=== PATIENT | male | born 1955 | race Caucasian/White ===

== ENCOUNTER 2022-04-22 19:14 | Outpatient (REF) | payer MEDICARE, OTHER, SELFPAY ==
[2022-04-22 20:40] LABS: ALT 25 U/L (16-63); AST 17 U/L (15-37); Albumin 4.1 g/dL (3.4-5.0); Alkaline Phosphatase 59 U/L (46-116); Anion Gap 9.5 mmol/L (3-11); BUN 21 mg/dL (7-18); Bilirubin, Total 0.6 mg/dL (0.2-1.0); CO2 28.5 mmol/L (21.0-32.0); CREATININE 1.3 mg/dL (0.70-1.30); Calculated LDL 112 mg/dL (<100); Chloride 103 mmol/L (98-107); Cholesterol 180 mg/dL (<200); Glucose 99 mg/dL (74-106); HDL Cholesterol 47 mg/dL (40-60); Sodium 141 mmol/L (136-145); Total Protein 7.6 g/dL (6.4-8.2); Triglyceride 105 mg/dL (<150)
== END 2022-04-22 19:15 | disposition home or self-care (01) ==
LOC: NCHCN 19:14
PROVIDERS: Visit Provider Physician Assistant
DX: R73.03 Prediabetes (principal); Z13.220 Encounter for screening for lipoid disorders
CPT/HCPCS: 80053; 80061

== ENCOUNTER 2024-05-09 15:31 | Outpatient (REF) | payer MEDICARE, OTHER, SELFPAY ==
--- OUTSIDE RECORDS SUMMARY | 2024-05-09 15:35 | XMS_ITS | Continuity of Care Document ---
Author Organization [facility] Address [address] [place] [address] Care Team Providers Care Customer Quality Engineer Name Role Phone MEGAN FLORIAN, MILIND Calles Primary Care Physician [phone] Encounter LTTL_MD FIN NBR [id number] Date(s): 05/05/24 - 05/05/24 [facility] [address], [place] [id number]- [place] Discharge Disposition: Home or Self Care Attending Physician: Sury Bee MD Admitting Physician: Sury Bee MD Referring Physician: Sury Bee MD Allergies, Adverse Reactions, Alerts Substance Criticality Severity Reaction Reaction Severity Status Hayfever Unable to assess criticality Unknown Active Assessment and Plan Future Appointments Diagnostic Tests Pending * QuantiFERON-TB Plus(Client Incubated) LC 05/05/24 Future Scheduled Tests Radiology* CT Chest w/o Contrast 04/26/24 Medications !-Aspir 81 oral delayed release tablet 81 mg = 1 tab, Oral, Daily, # 30 tab, 0 Refill(s) Start Date: 06/25/22 Status: Ordered calcium (as carbonate)-vitamin D 500 mg-400 intl units oral tablet 1 tab, Oral, Daily, # 300 tab, 0 Refill(s) Start Date: 06/25/22 Status: Ordered Fish Oil 1200 mg oral capsule 1,200 mg = 1 cap, Oral, Daily, # 90 cap, 0 Refill(s) Start Date: 09/20/23 Status: Ordered glucosamine 500 mg oral capsule 500 mg = 1 cap, Oral, Daily, # 90 cap, 0 Refill(s) Start Date: 06/25/22 Status: Ordered magnesium gluconate 500 mg oral tablet 500 mg = 1 tab, Oral, Daily, # 14 tab, 0 Refill(s) Start Date: 06/25/22 Stop Date: 07/02/22 Status: Ordered PreserVision 0 Refill(s) Start Date: 05/05/24 Status: Ordered Protonix 40 mg oral delayed release tablet 40 mg = 1 tab, Oral, Daily, # 30 tab, 0 Refill(s) Start Date: 06/25/22 Status: Ordered Vitamin C 500 mg oral tablet 500 mg = 1 tab, Oral, Daily, # 30 tab, 0 Refill(s) Start Date: 06/25/22 Status: Ordered Vitamin D3 1000 intl units oral capsule 25 mcg = 1 cap, Oral, Daily, # 75 cap, 0 Refill(s) Start Date: 06/25/22 Status: Ordered vitamin E 0 Refill(s) Start Date: 05/05/24 Status: Ordered Problem List Condition Confirmation Course Effective Dates Status H ealth Status Informant Allergic rhinitis Confirmed Active Desouza's esophagus Confirmed Active BPPV - Benign paroxysmal positional vertigo Confirmed Active Degeneration of lumbar intervertebral disc Confirmed Active Diverticulitis Confirmed Active Femoral hernia Confirmed Active GERD - Gastro-esophageal reflux disease Confirmed Active Hx of adenomatous colonic polyps Confirmed Active History of alcohol abuse Confirmed Active History of diverticulitis Confirmed Active Macular degeneration of both eyes Confirmed Active Malignant melanoma Confirmed Active Neck pain Confirmed Active Prediabetes Confirmed Active Pulmonary sarcoidosis Confirmed Active Sarcoidosis Confirmed Active Thoracic spondylosis Confirmed Active TIA Confirmed Active Procedures Procedure Date Related Diagnosis Body Site Status Esophagogastroduodenoscopy a nd Colonoscopy with Biopsy 1 09/23/23 Comple susana Esophagogastroduodenoscopy Biopsy 2 09/23/22 Completed Esophagogastroduodenoscopy, flexible, transoral; diagnostic, including collection of specimen(s) by brushing or washing, when performed (separate procedure) 09/22/22 Completed Colonoscopy Completed EGD - Esophagogastroduodenoscopy Completed Excision of melanoma 3 Co mpleted Laparoscopic cholecystectomy Completed Primary repair of umbilical hernia Completed 1auto-populated from documented surgical case 2auto-populated from documented surgical case 3back Social History Social History Type Response Tobacco Former tobacco user Tobacco Use:. 1 ppd per day. 21 year(s). Sex Sex Representation Male (finding) Patient Care team information Care Team Personnel Name: MEGAN FLORIAN (QUANG)MILIND Position: No Access Member Role: Primary Care Physician Address: [address] [place] [address] Care Team Related Persons Name: ANKUSH SIDHU Insurance Providers Guarantor name: INDRA SIDHU [employer] Plan Information #: 2 [facility] Member Number: [id number] Policy Number: NA Health Plan Information #: 1 Payer: [facility] Member Number: [id number] Policy Number: NA
--- OUTSIDE RECORDS SUMMARY | 2024-05-09 15:35 | XMS_ITS | Encounter Summary ---
[place] [address] Care Team Providers Care Armature And Rotor Winder Name Role Phone Britt Bravo Primary Care Provider [phone] Reason for Referral * Consultation (Urgent) - Closed Specialty Diagnoses / Procedures Referred By Contac t Referred To Contact Diagnoses Mediastinal adenopathy Sarcoidosis of lung Cameron Shelby MD [facility] [place] [address] Lala Hubbard MD [address] [place] [address] Referral ID Status Reason Start Date Expiration Date V isits Requested Visits Authorized [id number] Closed Consult, Test & Treat 01/18/2023 07/17/2023 1 1 Encounter Details Date Type Department Care Team (Late st Contact Info) Description 01/18/2023 Orders [place] [address] Kiley Mccall, RN Mediastinal adenopathy; Sarcoidosis of lung Social History Tobacco Use Types Packs/Day Years Used Date Smoking Tobacco: Former Cigarettes 2 21 1 - 1992 Smokeless Tobacco: Never Alcohol Use Standard Drinks/Week Comments Not Currently 0 (1 standard drink = 0.6 oz pur e alcohol) quit 16 years ago Sex and Gender Information Value Date Recorded Sex Assigned at Not on file Gender Identity Not on file Sexual Orientation Not on file documented as of this encounter Progress Notes * Kiley Mccall, RN - 01/18/2023 2:06 PM EDT Faxed Pulmonology referral to Dr. Lala Hubbard at [phone] documented in this encounter Plan of Treatment Scheduled Referrals Name Type Priority Associated Diagnoses Order Schedule Referral to Pulmonology Outpatient Referral Urgent Mediastinal adenopathy Sarcoidosis of lung Ordered: 01/18/2023 documented as of this encounter Visit Diagnoses Diagnosis Mediastinal adenopathy Enlargement of lymph nodes Sarcoidosis of lung Sarcoidosis documented in this encounter Care Teams Armature And Rotor Winder Relationship Specialty Start Date End Date Britt Bravo PA [address] [place] [id number] PCP - General Family Medicine 11/18/22 documented as of this encounter
--- OUTSIDE RECORDS SUMMARY | 2024-05-09 15:35 | XMS_ITS | Encounter Summary ---
Author Organization [facility] Address [facility] [place] [address] Care Team Providers Care Network Director Name Role Phone Britt Bravo Primary Care Provider + [phone] Reason for Visit * Reason Comments Follow-up * Consultation (Routine) - Closed Specialty Diagnoses / Procedures Referred By Contac t Referred To Contact General Surgery Diagnoses Femoral hernia with obstruction without gangrene, recurrence not specified, unspecified laterality Anjum Chiang MD [facility] [place] [address] [facility] Gen Surgery [address] [place] [address] Referral ID Status Reason Start Date Expiration Date V isits Requested Visits Authorized [id number] Closed Consult, Test & Treat 12/29/2022 12/29/2023 1 1 Encounter Details Date Type Department Care Team (Late st Contact Info) Description 01/12/2023 2:45 PM EDT Office Visit [place] [address] Romain Vang MD [facility] [place] [address] Unilateral femoral hernia without obstruction or gangrene, recurrence not specified Social History Tobacco Use Types Packs/Day Years [...] on file documented as of this encounter Last Filed Vital Signs Vital Sign Reading Time Taken Comments Blood Pressure - - Pulse - - Temperature - - Respiratory Rate - - Oxygen Saturation - - Inhaled Oxygen Concentration - - Weight 91.4 kg (201 lb 8 oz) 01/12/2023 2:35 PM EDT Height - - Body Mass Index 28.91 12/29/2022 11:07 AM EDT documented in this encounter Progress Notes * Isabella Oneil MD - 01/12/2023 2:45 PM EDT [facility] Follow Up Note Referring Provider: Anjum Chiang Chief complaint: Chief Complaint Patient presents with ??? Follow-up History of Present Illness: Diallo Solomon is a 67 y.o. male who presents for follow up of right femoral hernia in setting of prior right laparoscopic inguinal hernia. Patient was last seen by Dr. Vang 11/16/2019 at which time he was offered laparoscopic inguinal hernia repair which he eventually scheduled but ultimately canceled due to the COVID-19 pandemic. Since that time, he has remained healthy but now presents with worsening symptoms and hopes to schedule surgical repair. Patient was biking a bunch while vacationing in [place] about a month ago and began having more pain in the groin and a pulling sensation in the abdomen. The bulge was increased in size and has always been out. No symptoms or signs of obstruction/acute incarceration. Denies any symptoms on the left. Hernia Risk Factors: ??? Constipation-no ??? Frequent Heavy Lifting- no, occasionally fire wood etc ??? Straining with urination-no ??? Cough-no ??? Smoking history-no ??? Weight gain-no ??? BMI-28.9 Hemoglobin A1c-No results found for: HA1C Past Medical History: Patient Active Problem List Diagnosis Code ??? Femoral hernia K41.90 ??? Gastroesophageal reflux K21.9 ??? Desouza's esophagus K22.70 ??? Chronic back pain M54.9, G89.29 ??? Melanoma C43.9 ??? Mediastinal adenopathy R59.0 Past Surgical History: Past Surgical History: Procedure Laterality Date ??? CHOLECYSTECTOMY, LAPAROSCOPIC c/b deep space infection requiring IR drainage ??? INGUINAL HERNIA REPAIR Right ? ? PRO [facility] EBUS GUIDED SAMPL 3/> NODE STATION/STRUX N/A 01/01/2023 BRONCH, W ENDOBRONCHIAL ULTRASOUND (EBUS) GUIDED SAMPLING, 3+ NODES (WRVU 4.96) performed by Cameron Shelby MD at [facility] MAIN OR ??? SKIN CANCER EXCISION Right lower right back Medications: Current Outpatient Medications on File Prior to Visit Medication Sig Dispense Refill ??? cholecalciferol, Vitamin D3, 25 mcg (1,000 unit) Capsule Take 1,000 Units by mouth daily. ??? ascorbic acid, Vitamin C, (Vitamin C) 500 mg tablet Take 500 mg by mouth daily. ??? [id number]-[id number]-YNCW ORAL Take 1 tablet by mouth daily. ??? glucosamine/msm/chondrt/C/hyal (JQDQPJEFIDH-[id number]-NKO ORAL) Take 1 tablet by mouth daily. ??? aspirin EC 81 mg EC (DR) tablet Take 81 mg by mouth daily. ??? pantoprazole (PROTONIX) 40 mg Tablet, Delayed Release (E.C.) Take 40 mg by mouth daily. 0 No current facility-administered medications on file prior to visit. Allergies: Cat dander, Dust & pollen filter mask [facial mask], Hay fever and allergy relief [chlorpheniramine-phenylpropan], Oats, and [place] Family History: Family History Problem Relation Age of Onset ??? Myocardial Infarction Mother 80 ??? Heart Disease Father ??? Hypertension Father ??? Diabetes Father ??? Arthritis Brother ??? Cancer Paternal Grandmother type unknown ??? Breast Cancer Paternal Aunt No history of bleeding disorders, clotting disorders, or complications from anesthesia. Social History: reports that he quit smoking about 30 years ago. His smoking use included cigarettes. He started smoking about 51 years ago. He has a 42.00 pack-year smoking history. He has never used smokeless tobacco. He reports that he does not currently use alcohol. He reports that he does not currently use drugs after having used the following drugs: Marijuana. Review of Systems: A 10 point review of systems was performed. Pertinent positives and negatives are listed in the above HPI. All other systems are negative. Physical Exam: Vital Signs: Wt 91.4 kg (201 lb 8 oz) BMI 28.91 kg/m?? General appearance: Alert and oriented, appears stated age, well groomed HEENT: No scleral icterus, normocephalic, atraumatic Neck: No carotid bruits Skin: No jaundice Heart: Regular rate and rhythm Lungs: Symmetric chest rise, no distress, clear breath sounds bilaterally Abdomen: Non distended, soft, non tender to palpation, : right open inguinal incision, there is a soft non-tender mass along inferior aspect of right inguinal canal, tender in femoral canal, no cough impulse on left Extremities: Moves all four extremities, no gross deformity. Studies: Admission on 01/01/2023, Discharged on 01/01/2023 Component Date Value Ref Range Status ??? WBC 01/01/2023 7.7 4.0 - 9.5 x10(3)/mcL Final ??? RBC 01/01/2023 5.20 4.58 - 5.54 x10(6)/mcL Final ??? Hemoglobin 01/01/2023 15.8 13.7 - 16.5 g/dL Final ??? Hematocrit 01/01/2023 46.6 40.5 - 48.5 % Final ??? MCV 01/01/2023 89.6 82.9 - 93.1 fL Final ??? MCH 01/01/2023 30.4 27.5 - 32.1 pg Final ??? MCHC 01/01/2023 33.9 32.0 - 35.7 g/dL Final ??? Platelets 01/01/2023 218 145 - 357 x10(3)/mcL Final ??? RDWSD 01/01/2023 41.4 36.0 - 45.0 fL Final ??? RDWCV 01/01/2023 12.6 11.4 - 13.8 % Final ??? MPV 01/01/2023 9.8 7.6 - 12.9 fL Final ??? nRBC % Auto 01/01/2023 0.0 % Final ??? nRBC Abs Auto 01/01/2023 0.000 0.000 - 0.000 x10(3)/mcL Final ??? Neutrophils % 01/01/2023 59.2 % Final ??? Neutr Abs (ANC) 01/01/2023 4.56 1.70 - 6.10 x10(3)/mcL Final ??? Lymphocytes % 01/01/2023 26.3 % Final ??? Lymphocytes Abs 01/01/2023 2.0 0.9 - 3.2 x10(3)/mcL Final ??? Monocytes % 01/01/2023 10.3 % Final ??? Monocyte Abs 01/01/2023 0.8 0.3 - 0.9 x10(3)/mcL Final ??? Eosinophils % 01/01/2023 3.4 % Final ??? Eosinophils Abs 01/01/2023 0.3 0.0 - 0.4 x10(3)/mcL Final ??? Basophils % 01/01/2023 0.4 % Final ??? Basophils Abs 01/01/2023 0.0 0.0 - 0.1 x10(3)/mcL Final ??? Immature Gran % 01/01/2023 0.40 % Final Comment: Immature granulocytes(IG's)percentage and absolute count will include metamyelocytes, myelocytes, and promyelocytes. Blood smears from CBCs yielding IG's will be scanned manually for concordance. If this scan disagrees with the automated IG or if promyelocytes are noted, a manual differential will be performed. ??? Sofía Gran Abs 01/01/2023 0.03 0.00 - 0.04 x10(3)/mcL Final ??? POC Glucose 01/01/2023 103 65 - 199 mg/dL Final Comment: Supplemental ranges: <140 mg/dL before meals <180 mg/dL all other times of the day ??? Ventricular rate 01/01/2023 67 BPM Final ??? Atrial Rate 01/01/2023 67 BPM Final ??? P-R Interval 01/01/2023 150 ms Final ??? QRS Duration 01/01/2023 94 ms Final ??? Q-T Interval 01/01/2023 374 ms Final ??? QTC Calculated (Bezet) 01/01/2023 395 ms Final ??? Calculated P [facility] 01/01/2023 28 degrees Final ??? Calculated R [facility] 01/01/2023 26 degrees Final ??? Calculated T [facility] 01/01/2023 10 degrees Final ??? INTERPRETATION 01/01/2023 Final Value:Normal sinus rhythm with sinus arrhythmia Normal ECG No previous ECGs available Confirmed by MD DIAZ SALVATORE ([id number]) on 01/01/2023 3:58:07 PM ??? Immunophenotyping Flow 01/01/2023 See Comment Final Comment: When completed by the Pathologist, the Flow Cytometry Report ([id number]) will display under the Pathology Results section within eDH. ??? Tissue Culture 01/01/2023 (A) Final Value:Coagulase negative Staphylococcus species isolated from broth culture. Probable contaminant No growth on original plates. ??? Gram Stain 01/01/2023 (A) Final Value:Few Neutrophils seen No microorganisms seen. ??? Organism 01/01/2023 Coagulase negative Staphylococcus species (A) Final ??? Anaerobic Culture 01/01/2023 No anaerobic organisms isolated Final ??? Flow Cytometry Report 01/01/2023 Final Value:[id number] Location: [facility]; [place]; A The signing pathologist has (i) examined the relevant preparation(s) for the specimen(s) and (ii) rendered or confirmed the diagnosis(es). . Flow Cytometry DIAGNOSIS LEVEL 7, LYMPH NODE - FLOW CYTOMETRY: - No monotypic B-cell population or phenotypically abnormal T-cell population. Electronically signed by: Deniz Crews DO Verified: 01/04/2023 9:31 Pathologist Performed at: -[facility], [place] [address] Production Supervisor: Silviano Arias MD, FCAP, CLIA Certificate: [id number] DISCUSSION Cell viability was ~65% as assessed by 7-AAD exclusion. Blasts based on CD45/SSC/CD117, are not increased. The T-lymphocytes, B- lymphocytes and CD56+ NK cells comprise approx 64%, 33%, 3% of the gated population, respectively. The CD19 positive B-cells have a polytypic expression of surface immunog lobulin light chain ([place]:Lambda ratio at 1.2). The T-cells are an admixture of CD4+ and CD8+ T lymphocytes (ratio of 2.7). No loss or atypical intensity distributions are seen for any fernandez T antigen (CD2, 3, 4+8, 5, 7). There is no increase in VY56-ksjajlnz/CD3-neg NK cells. Flow analysis is an ancillary study. A definite diagnosis requires correlation with the morphologic features of this process and if necessary, correlation with other ancillary studies like immunohistochemistry, enzyme cytochemistry and/or cyto/ molecular genetics. This test was developed and its performance characteristics determined by the Clinical Flow Cytometry Laboratory at [facility]. It has not been cleared or approved by the U.S. Food and Drug Administration. The FDA has determined that such clearance or approval is not necessary. This test is used for clinical purposes. It should not be regarded as investigational or for research. This laboratory is certified under the Clinical Laboratory Improvement Act of 1988 (CLIA) as qualified to perform high complexity clinical laboratory testing. SPECIMEN PROCESSING [id number] Cells for immunophenotypic analysis were derived from level 7 lymph node. CD45 vs side scatter gating was utilized to identify a lymphoid analysis region that comprises approximately 69-75% of all cells. The following markers were assessed: CD2, CD3, CD4, CD5, CD7, CD8, CD10, CD19, CD45, CD56, kappa light chain, and lambda light chain. CLINICAL INFORMATION 67 year old male with history of melanoma now with mediastinal lymphadenopathy, underwent bronchoscopy. ??? Non-Cable Hooker Final Report 01/01/2023 Final Value:[id number] Location: [facility]; [place]; A The signing pathologist has (i) examined the relevant preparation(s) for the specimen(s) and (ii) rendered or confirmed the diagnosis(es). . Non-Cable Hooker Final DIAGNOSIS Negative for Malignancy Electronically signed by: Marge Feldman MD Verified: 01/06/2023 11:35 Pathologist Performed at: -[facility], [place] [address] Production Supervisor: Silviano Arias MD, FCAP, CLIA Certificate: [id number] DISCUSSION Lymph node, level 7 (EBUS-guided FNA): Lymph node with abundant compact, non-necrotizing granulomas. No evidence of metastatic disease. Cell block was examined. --- Immunohistochemistry Studies --- Interpretation: Immunohistochemical assays were performed (on paraffin-embedded cell block sections fixed in 10% neutral buffered formalin for 6-72 hours) using the polymer technique with appropriate controls. Block Antibody Result (Positive/Negative) A1 Mycobacterium Negative A1 SOX10 Negative for melanoma These immunohistochemical studies provide ancillary information and are used only in conjunction with standard diagnostic procedures. Special Stains: Formalin-fixed, paraffin-embedded cell block sections are studied with appropriate positive controls. Block Special Stain Result (Positive/Negative) A1 AFB Negative for acid-fast organisms A1 GMS Negative for fungal organisms A1 PAS Negative for fungal organisms CLINICAL INFORMATION Specimen Source : Lymph node, level 7 (EBUS-guided FNA, assisted) Pertinent Clinical Data and Significant Therapy: Mediastinal adenopathy with h/o melanoma Clinical Impression : Mediastinal adenopathy with h/o melanoma Pertinent Radiologic Findings : (not provided) Gross Description: . CLINICAL INFORMATION Received in Formalin approximately 45 mL total volume of cloudy, pink fluid, with clots. Total Preparation: Diff Quik 1; Pap Stain 1; Cell Block 1. ??? Non-Cable Hooker Final Report 01/01/2023 Final Value:[id number] Location: [facility]; [facility]; A The signing pathologist has (i) examined the relevant preparation(s) for the specimen(s) and (ii) rendered or confirmed the diagnosis(es). . Non-Cable Hooker Final DIAGNOSIS Negative for Malignancy Electronically signed by: Marge Feldman MD Verified: 01/06/2023 11:50 Pathologist Performed at: [facility] Dept. of Pathology, [place] [address] Production Supervisor: Silviano Arias MD, FCAP, CLIA Certificate: [id number] DISCUSSION Lymph node, level 4R (EBUS-guided FNA): Lymph node with abundant compact, non-necrotizing granulomas. No evidence of metastatic disease. Cell block was examined. CLINICAL INFORMATION Specimen Source : Lymph node, level 4R (EBUS-guided FNA, assisted) Pertinent Clinical Data and Significant Therapy: Mediastinal adenopathy with h/o melanoma Clinical Impression : Mediastinal adeno rufino with h/o melanoma Pertinent Radiologic Findings : (not provided) Gross Description: Received in Formalin approximately 50 mL total volume of cloudy, bloody fluid, with clots. Total Preparation: Diff Quik 2; Pap Stain 2; Cell Block 1. ??? Non-Cable Hooker Final Report 01/01/2023 Final Value:[id number] Location: [facility]; [place]; A The signing pathologist has (i) examined the relevant preparation(s) for the specimen(s) and (ii) rendered or confirmed the diagnosis(es). . Non-Cable Hooker Final DIAGNOSIS Negative for Malignancy Electronically signed by: Marge Feldman MD Verified: 01/06/2023 11:53 Pathologist Performed at: [facility] Dept. of Pathology, [place] [address] Production Supervisor: Silviano Arias MD, FCAP, CLIA Certificate: [id number] DISCUSSION Lymph node, level 11L (EBUS-guided FNA): Lymph node with abundant compact, non-necrotizing granulomas. No evidence of metastatic disease. Cell block was examined. CLINICAL INFORMATION Specimen Source : Lymph node, level 11L (EBUS-guided FNA, assisted) Pertinent Clinical Data and Significant Therapy: Mediastinal adenopathy with h/o melanoma Clinical Impression : Mediastinal delmar nopathy with h/o melanoma Pertinent Radiologic Findings : (not provided) Gross Description: Received in Formalin approximately 45 mL total volume of cloudy, bloody fluid, with clots. Total Preparation: Diff Quik 2; Pap Stain 2; Cell Block 1. ??? Non-Cable Hooker Final Report 01/01/2023 Final Value:[id number] Location: [facility]; [facility]; A The signing pathologist has (i) examined the relevant preparation(s) for the specimen(s) and (ii) rendered or confirmed the diagnosis(es). . Non-Cable Hooker Final DIAGNOSIS Negative for Malignancy Electronically signed by: Marge Feldman MD Verified: 01/06/2023 11:57 Pathologist Performed at: -[facility], [place] [address] Production Supervisor: Silviano Arias MD, FCAP, CLIA Certificate: [id number] DISCUSSION Lymph node, level 4L (EBUS-guided FNA): Lymph node with non-necrotizing granulomas. No evidence of metastatic disease. Cell block was examined; multiple deeper levels were reviewed. CLINICAL INFORMATION Specimen Source : Lymph node, level 4L (EBUS-guided FNA, assisted) Pertinent Clinical Data and Significant Therapy: Mediastinal adenopathy with h/o melanoma Clinical Impression : Mediastinal adenopathy with h/o melanoma Pertinent Radiologic Findings : (not provided) Gross Description: Received in Formalin approximately 50 mL total volume of clear, colorless fluid, with dark flecks. Total Preparation: Diff Quik 1; Pap Stain 1; Cell Block 1. Lab Results Component Value Date/Time WBC 7.7 01/01/2023 11:47 AM HGB 15.8 01/01/2023 11:47 AM HCT 46.6 01/01/2023 11:47 AM No results found for: NA, K, CL, CO2, BUN No results found for: AST, ALT, ALB Assessment and Recommendation: A 67 y.o.-old male with pain and bulge in right femoral canal concerning for RIGHT femoral hernia. Atypically, however, a soft bulge in his right groin extends along inguinal crease and may representa separate lipoma. Will plan for laparoscopic repair of likely right femoral hernia with possibility of lipoma excision if soft mass does not resolve after hernia is fixed. Discussed Risks/Benefits/Alternatives to surgery. Risks of surgery include bleeding, infection, damage to near-by structures such as nerves/testicles, chronic pain, recurrent symptoms, recurrent hernia, and risk of anesthesia. The option for non-operative care was offered by not recommended. Patient expresses good understanding of issues involved and wishes to proceed with surgery. All questions answered. Consent obtained. Thank you for the referral and for allowing us to participate in the care of Diallo Petersen Hungcarmen. Patient seen and examined with Dr. Vang. Isabella Oneil MD 01/12/23 2:39 PM MISpager [phone] * Romain Vang MD - 01/12/2023 2:45 PM EDT I have seen the patient in person and reviewed Dr. Oneil's history and I agree with the details as written. The assessment and plan were formulated in discussion with me and I agree with them as documented. Pertinent History: Right femoral hernia has become more symptomatic, no obstructive symptoms. Pertinent Exam: Right groin fullness Major issues addressed: Discussed risks and benefits of surgery Plan: Laparoscopic repair documented in this encounter Plan of Treatment Not on file documented as of this encounter Visit Diagnoses Diagnosis Unilateral femoral hernia without obstruction or gangrene, recurrence not specified documented in this encounter Care Teams Network Director Relationship Specialty Start Date End Date Britt Bravo PA [address] [address] PCP - General Family Medicine 11/18/22 documented as of this encounter
--- OUTSIDE RECORDS SUMMARY | 2024-05-09 15:35 | XMS_ITS | Encounter Summary ---
Author Organization [facility] Address [facility] [place] [address] Care Team Providers Care House Painter Name Role Phone Britt Bravo Primary Care Provider [phone] Encounter Details Date Type Department Care Team (Late st Contact Info) Description 08/18/2023 Refill Dermatology at [facility] [address] [place] [address] Fernando Corona MD [facility] [address] [facility]IM[facility] [place] [address] Social History Tobacco Use Types Packs/Day Years Used Date Smoking Tobacco: Former Cigarettes 2 1 972 - 1992 Smokeless Tobacco: Never Alcohol Use Standard Drinks/Week Comments Not Currently 0 (1 standard drink = 0.6 oz pur e alcohol) quit 16 years ago IPV Inpatient Questions Answer Date Recorded Does Anyone Try to Keep You From Having Contact with Others or Doing Things Outside Your Home? no 07/14/2023 Feels Threatened by Someone no 04/2023 Feels Unsafe at Home or Work/School no 07/14/2023 Physical Signs of Abuse Present no 07/14/2023 Sex and Gender Information Value Date Recorded Sex Assigned at Not on file Gender Identity Not on file Sexual Orientation Not on file documented as of this encounter Plan of Treatment Not on file documented as of this encounter Visit Diagnoses Not on filedocumented in this encounter Care Teams House Painter Relationship Specialty Start Date End Date Britt Bravo PA [address] [place] [id number] PCP - General Family Medicine 11/18/22 documented as of this encounter
--- OUTSIDE RECORDS SUMMARY | 2024-05-09 15:35 | XMS_ITS | Encounter Summary ---
Author Organization [facility] [place] [address] Care Team Providers Care Apron Operator Name Role Phone Britt Bravo Primary Care Provider [phone] Reason for Visit * Reason Comments Follow-up Encounter Details Date Type Department Care Team (Late st Contact Info) Description 08/10/2023 12:00 PM EST Office Visit [place] [address] Randi Harkins, PROTOTYPER [facility] [place] [address] Surgery follow-up Social History Tobacco Use Types Packs/Day Years Used Date Smoking Tobacco: Former Cigarettes 2 1 - 1992 Smokeless Tobacco: Never Alcohol Use Standard Drinks/Week Comments Not Currently 0 (1 standard drink = 0.6 oz pur e alcohol) quit 16 years ago [facility] Inpatient Questions Answer Date Recorded Does Anyone [...] as of this encounter Progress Notes * Randi Harkins, BLAISE - 08/10/2023 12:00 PM EST Diallo Trinity Neha returns for follow up. Diallo is a 67 yo male who had a previous right inguinal hernia repair through an open approach. Hehad persistent swelling in his lower groin below the inguinal ligament that was tender and non reducible. He presented on 07/14/23 for laparoscopic femoral hernia repair or lipoma excision with Dr Vang. 07/14/23: HERNIA REPAIR, INGUINAL, RECURRENT (WRVU 9.99) (Right) MODIFIER MESH,BARD FLAT MESH (N/A)-Trus -Lipoma excision Findings: No hernia identified, large lipoma excised without difficulty. Pathology: DIAGNOSIS A - Soft tissue, right groin; excision: Mature adipose tissue, clinically a lipoma. Feels very well, denies pain, fevers chills, malaise, sweats, abdominal pain. The pt is eating well, voiding and moving bowels without difficulty. No new lumps or bulges. Energy and appetite good. Pleased with progress and in good spirits. Exam: Well appearing, moves easily about the exam room and onto the exam table. Left groin incision nicely healed, no erythema or fluctuance. No tenderness Impression/Plan: Doing well, s/p lipoma excision, pt understands no hernia was identified. No activity restrictions going forward, at this time, FU will be on an as needed basis, I am happy to see him back should anything specific arise or should there be any question or concern. documented in this encounter Plan of Treatment Not on file documented as of this encounter Visit Diagnoses Diagnosis Surgery follow-up Follow-up examination, following unspecified surgery documented in this encounter Care Teams Apron Operator Relationship Specialty Start Date End Date Britt Bravo PA [address] [place] [phone] PCP - General Family Medicine 11/18/22 documented as of this encounter
--- OUTSIDE RECORDS SUMMARY | 2024-05-09 15:35 | XMS_ITS | Continuity of Care Document ---
Author Organization [facility] Address [address] [place] [address] Encounter [facility] FIN NBR [id number] Date(s): 09/23/22 - 09/23/22 [facility] [address], [place] [address] Encounter Diagnosis Desouza's esophagus(Discharge Diagnosis) - 09/23/22 Discharge Disposition: Home f/u External Provider Attending Physician: Angel Bermudez MD Admitting Physician: Angel Bermudez MD Referring Physician: Angel Bermudez MD Allergies, Adverse Reactions, Alerts Substance Reaction Severity Status Oats Unknown Active Hayfever Unknown Active Walnuts Unknown Active Assessment and Plan Future Appointments Future Scheduled Tests Radiology* MRI Spine Thoracic w/o Contrast 10/05/22 Functional Status 09/23/22 ADLs Independent Family Member Travel History No recent t ravel Recent Travel History No recent travel Other exposure to Infectious Disease Non e 09/15/22 Living Situation Home with family car e Medications !-Aspir 81 oral delayed release tablet 81 mg = 1 tab, Oral, Daily, # 30 tab, 0 Refill(s) Start Date: 06/25/22 Status: Ordered calcium (as carbonate)-vitamin D 500 mg-400 intl units oral tablet 1 tab, Oral, Daily, # 300 tab, 0 Refill(s) Start Date: 06/25/22 Status: Ordered glucosamine 500 mg oral capsule 500 mg = 1 cap, Oral, Daily, # 90 cap, 0 Refill(s) Start Date: 06/25/22 Status: Ordered magnesium gluconate 500 mg oral tablet 500 mg = 1 tab, Oral, Daily, # 14 tab, 0 Refill(s) Start Date: 06/25/22 Stop Date: 07/02/22 Status: Ordered Protonix 40 mg oral delayed [...] 0 Refill(s) Start Date: 06/25/22 Status: Ordered Problem List Condition Confirmation Course Effective Dates Status H ealth Status Informant Allergic rhinitis Confirmed Active Degeneration of lumbar intervertebral disc Confirmed Active GERD - Gastro-esophageal reflux disease Confirmed Active Procedures Procedure Date Related Diagnosis Body Site Status Esophagogastroduodenoscopy Biopsy 1 09/23/22 Completed Colonoscopy Completed EGD - Esophagogastroduodenoscopy Completed Excision of melanoma 2 Co mpleted Laparoscopic cholecystectomy Completed Primary repair of umbilical hernia Completed 1auto-populated from documented surgical case 2back Vital Signs Most recent to oldest [Reference Range]: 1 2 3 Temperature Temporal Artery [36-38 Deg C] 36.1 Deg C (09/23/22 12:20 PM) 36.0 Deg C (09/23/22 10:41 AM) 36.0 Deg C (09/23/22 10:41 AM) Temperature Temporal Artery (DegF) [97.3-100 Deg F] 96.98 Deg F *LOW* (09/23/22 12:20 PM) Peripheral Pulse Rate [60-100 bpm] 66 bpm (09/23/22 12:44 PM) 69 bpm (09/23/22 12:34 PM) 70 bpm (09/23/22 12:20 PM) Respiratory Rate 16 br/min (09/23/22 12:30 PM) Respiratory Rate [12-24 br/min] 16 br/min (09/23/22 10:41 AM) 16 br/min (09/23/22 10:41 AM) Blood Pressure [90-140/60-90 mmHg] 129/88mmHg (09/23/22 12:44 PM) 114/73mmHg (09/23/22 12:34 PM) 114/78mmHg (09/23/22 12:20 PM) Mean Arterial Pressure, Cuff [65-140 mmHg] 102 mmHg (09/23/22 12:44 PM) 87 mmHg (09/23/22 12:34 PM) 90 mmHg (1/18/23 12:20 PM) Mean Arterial Pressure Cuff 97 mmHg (09/23/22 12:44 PM) 86 mmHg (09/23/22 12:34 PM) 89 mmHg (09/23/22 12:20 PM) Weight 88.450 kg (09/15/22 3:27 PM) Weight Dosing 88.450 kg (09/15/22 3:27 PM) Height 177.800 cm (09/15/22 3:27 PM) Height/Length Dosing 177.800 cm (09/15/22 3:27 PM) Social History Social History Type Response Tobacco Former tobacco user Tobacco Use:. 1 ppd per day. 21 year(s). Sex Hospital Discharge Instructions Patient Education 09/23/2022 11:20:22 Upper Endoscopy, Adult, Care After Upper Endoscopy, Adult, Care After This sheet gives you information about how to care for yourself after your procedure. Your health care provider may also give you more specific instructions. If you have problems or questions, contact your health care provider. What can I expect after the procedure? After the procedure, it is common to have: ??? A sore throat. ??? Mild stomach pain or discomfort. ??? Bloating. ??? Nausea. Follow these instructions at home: ??? Follow instructions from your health care provider about what to eat or drink after your procedure. ??? Return to your normal activities as told by your health care provider. Ask your health care provider what activities are safe for you. ??? Take ushp-fsz-kpwzdzp and prescription medicines only as told by your health care provider. ??? If you were given a sedative during the procedure, it can affect you for several hours. Do not drive or operate machinery until your health care provider says that it is safe. ??? Keep all follow-up visits as told by your health care provider. This is important. Contact a health care provider if you have: ??? A sore throat that lasts longer than one day. ??? Trouble swallowing. Get help right away if: ??? You vomit blood or your vomit looks like coffee grounds. ??? You have: ??? A fever. ??? Bloody, black, or tarry stools. ??? A severe sore throat or you cannot swallow. ??? Difficulty breathing. ??? Severe pain in your chest or abdomen. Summary ??? After the procedure, it is common to have a sore throat, mild stomach discomfort, bloating, andnausea. ??? If you were given a sedative during the procedure, it can affect you for several hours. Do not drive or operate machinery until your health care provider says that it is safe. ??? Follow instructions from your health care provider about what to eat or drink after your procedure. ??? Return to your normal activities as told by your health care provider. This information is not intended to replace advice given to you by your health care provider. Make sure you discuss any questions you have with your health care provider. Document Revised: 08/20/2020 Document Reviewed: 01/23/2019 [employer] Patient Education ?? 2021 [employer] 09/23/2022 11:20:20 Desouza's Esophagus Desouza's Esophagus Desouza's esophagus occurs when the tissue that lines the esophagus changes or becomes damaged. Theesophagus is the tube that carries food from the throat to the stomach. With Desouza's esophagus, the cells that line the esophagus are replaced by cells that are similar to the lining of the intestines (intestinal metaplasia). Desouza's esophagus itself may not cause any symptoms. However, many people who have Desouza's esophagus also have gastroesophageal reflux disease (GERD), which may cause symptoms such as heartburn. Over time, a few people with this condition may develop cancer of the esophagus. Treatment may include medicines, procedures to destroy the abnormal cells, or surgery. What are the causes? The exact cause of this condition is not known. In some cases, the condition develops from damage to the lining of the esophagus caused by gastroesophageal reflux disease (GERD). GERD occurs when stomach acids flow up from the stomach into the esophagus. Frequent symptoms of GERD may cause intestinal metaplasia or cause cell changes (dysplasia). What increases the risk? You are more likely to develop this condition if you: ??? Have GERD. ??? Are male. ??? Are of descent. ??? Are obese. ??? Are older than 50. ??? Have a hiatal hernia. This is a condition in which part of your stomach bulges into your chest. ??? Smoke. What are the signs or symptoms? People with Desouza's esophagus often have no symptoms. However, many people with this condition also have GERD. Symptoms of GERD may include: ??? Heartburn. ??? Difficulty swallowing. ??? Dry cough. How is this diagnosed? This condition may be diagnosed based on: ??? Results of an upper gastrointestinal endoscopy. For this exam, a thin, flexible tube with a light and a camera on the end (endoscope) is passed down your esophagus. Your health care provider can view the inside of your esophagus during this procedure. ??? Results of a biopsy. For this procedure, several tissue samples are removed (biopsy) from your esophagus to look at under a microscope. They are then checked for intestinal metaplasia or dysplasia. How is this treated? Treatment for this condition may include: ??? Medicines (proton pump inhibitors, or PPIs) to decrease or stop GERD. ??? Periodic endoscopic exams to make sure that cancer is not developing. ??? A procedure or surgery for dysplasia. This may include: ??? Removal or destruction of abnormal cells. ??? Removal of part of the esophagus. Follow these instructions at home: Eating and drinking ??? Eat more fruits and vegetables. ??? Avoid fatty foods. ??? Eat small, frequent meals instead of large meals. ??? Avoid foods that cause heartburn. These foods include: ??? Coffee and alcoholic drinks. ??? Tomatoes and foods made with tomatoes. ??? [place] or spicy foods. ??? Chocolate and peppermint. ??? Do not drink alcohol. General instructions ??? Take lykj-teb-mesmyyx and prescription medicines only as told by your health care provider. ??? Do not use any products that contain nicotine or tobacco, such as cigarettes, e-cigarettes, andchewing tobacco. If you need help quitting, ask your health care provider. ??? If you are being treated for GERD, make sure you take medicines and follow all instructions as told by your health care provider. ??? Keep all follow-up visits as told by your health care provider. This is important. Contact a health care provider if: ??? You have heartburn or GERD symptoms. ??? You have difficulty swallowing. Get help right away if: ??? You have chest pain. ??? You are unable to swallow. ??? You vomit blood or material that looks like coffee grounds. ??? Your stool (feces) is bright red or dark. These symptoms may represent a serious problem that is an emergency. Do not wait to see if the symptoms will go away. Get medical help right away. Call your local emergency services (911 in the [place] Do not drive yourself to the hospital. Summary ??? Desouza's esophagus occurs when the tissue that lines the esophagus changes or becomes damaged. ??? Desouza's esophagus may be diagnosed with an upper gastrointestinal endoscopy and a biopsy. ??? Treatment may include medicines, procedures to remove abnormal cells, or surgery. ??? Follow your health care provider's instructions about what to eat and drink, what medicines to take, and when to call for help. This information is not intended to replace advice given to you by your health care provider. Make sure you discuss any questions you have with your health care provider. Document Revised: 11/09/2020 Document Reviewed: 11/09/2020 [employer] Patient Education ?? 2021 [employer]. Discharge instructions * Nereida Barreto: PERFORM Event Display: Discharge Instructions Authored Date: [id number] INDRA SIDHU :1955 Age:67 years Sex:Male Visit Date:09/23/2022 Hospital Discharge Instructions We would like to thank you for allowing us to assist you with your healthcare needs. The following includes patient education materials and information regarding your injury/illness. After you leave the hospital, you may get your health information including your test results, physician notes and discharge information by accessing your Patient Portal. Your Next Steps Scheduled Future Appointments 2022 1:30 PM EST ?? Medications What How Much When Instructions Next Dose Unchanged ascorbic acid (Vitamin C 500 mg oral tablet) 1 tab Oral (given by mouth) Every day Unchanged aspirin (!-Aspir 81 oral delayed release tablet) 1 tab Oral (given by mouth) Every day Unchanged calcium-vitamin D (calcium (as carbonate)-vitamin D 500 mg-400 intl units oral tablet) 1 tab Oral (given by mouth) Every day Unchanged cholecalciferol (Vitamin D3 1000 intl units oral capsule) 1 Capsules Oral (given by mouth) Every day Unchanged glucosamine (glucosamine 500 mg oral capsule) 1 Capsules Oral (given by mouth) Every day Unchanged magnesium gluconate (magnesium gluconate 500 mg oral tablet) 1 tab Oral (given by mouth) Every day Duration: 7 Days Unchanged pantoprazole (Protonix 40 mg oral delayed release tablet) 1 tab Oral (given by mouth) Every day Your Summary Your Care Team Admitting Physician - Angel Bermudez MD Attending Physician - Angel Bermudez MD Referring Physician - Angel Bermudez MD Your Diagnosis Desouza's esophagus Problems Ongoing - Any problem that you are currently receiving treatment for. Allergic rhinitis Degeneration of lumbar intervertebral disc GERD - Gastro-esophageal reflux disease Procedures History ???Esophagogastroduodenoscopy Biopsy (09/23/2022)???Primary repair of umbilical hernia Discharge Vitals Temperature??(Temporal Artery) 97.0 ??F (36.1 ??C) Heart Rate??(Peripheral) 69 Respiratory Rate?? 16 Respiratory Rate?? 16 Blood Pressure?? 114/73?? Allergies Hayfever Oats Walnuts Education Materials Upper Endoscopy, Adult, Care After This sheet gives you information about how to care for yourself after your procedure. Your health care provider may also give you more specific instructions. If you have problems or questions, contact your health care provider. What can I expect after the procedure? After the procedure, it is common to have: ? A sore throat. ? Mild stomach pain or discomfort. ? Bloating. ? Nausea. Follow these instructions at home: ? Follow instructions from your health care provider about what to eat or drink after your procedure. ? Return to your normal activities as told by your health care provider. Ask your health care provider what activities are safe for you. ? Take kjth-mac-rapjsad and prescription medicines only as told by your health care provider. ? If you were given a sedative during the procedure, it can affect you for several hours. Do not drive or operate machinery until your health care provider says that it is safe. ? Keep all follow-up visits as told by your health care provider. This is important. Contact a health care provider if you have: ? A sore throat that lasts longer than one day. ? Trouble swallowing. Get help right away if: ? You vomit blood or your vomit looks like coffee grounds. ? You have: ? A fever. ? Bloody, black, or tarry stools. ? A severe sore throat or you cannot swallow. ? Difficulty breathing. ? Severe pain in your chest or abdomen. Summary ? After the procedure, it is common to have a sore throat, mild stomach discomfort, bloating, and nausea. ? If you were given a sedative during the procedure, it can affect you for several hours. Do not drive or operate machinery until your health care provider says that it is safe. ? Follow instructions from your health care provider about what to eat or drink after your procedure. ? Return to your normal activities as told by your health care provider. This information is not intended to replace advice given to you by your health care provider. Make sure you discuss any questions you have with your health care provider. Document Revised: 08/20/2020 Document Reviewed: 01/23/2019 [employer] Patient Education ?? 2021 [employer]. Desouza's Esophagus Desouza's esophagus occurs when the tissue that lines the esophagus changes or becomes damaged. Theesophagus is the tube that carries food from the throat to the stomach. With Desouza's esophagus, the cells that line the esophagus are replaced by cells that are similar to the lining of the intestines (intestinal metaplasia). Desouza's esophagus itself may not cause any symptoms. However, many people who have Desouza's esophagus also have gastroesophageal reflux disease (GERD), which may cause symptoms such as heartburn. Over time, a few people with this condition may develop cancer of the esophagus. Treatment may include medicines, procedures to destroy the abnormal cells, or surgery. What are the causes? The exact cause of this condition is not known. In some cases, the condition develops from damage to the lining of the esophagus caused by gastroesophageal reflux disease (GERD). GERD occurs when stomach acids flow up from the stomach into the esophagus. Frequent symptoms of GERD may cause intestinal metaplasia or cause cell changes (dysplasia). What increases the risk? You are more likely to develop this condition if you: ? Have GERD. ? Are male. ? Are of descent. ? Are obese. ? Are older than 50. ? Have a hiatal hernia. This is a condition in which part of your stomach bulges into your chest. ? Smoke. What are the signs or symptoms? People with Desouza's esophagus often have no symptoms. However, many people with this condition also have GERD. Symptoms of GERD may include: ? Heartburn. ? Difficulty swallowing. ? Dry cough. How is this diagnosed? This condition may be diagnosed based on: ? Results of an upper gastrointestinal endoscopy. For this exam, a thin, flexible tube with a light and a camera on the end (endoscope) is passed down your esophagus. Your health care provider can viewthe inside of your esophagus during this procedure. ? Results of a biopsy. For this procedure, several tissue samples are removed (biopsy) from your esophagus to look at under a microscope. They are then checked for intestinal metaplasia or dysplasia. How is this treated? Treatment for this condition may include: ? Medicines (proton pump inhibitors, or PPIs) to decrease or stop GERD. ? Periodic endoscopic exams to make sure that cancer is not developing. ? A procedure or surgery for dysplasia. This may include: ? Removal or destruction of abnormal cells. ? Removal of part of the esophagus. Follow these instructions at home: Eating and drinking ? Eat more fruits and vegetables. ? Avoid fatty foods. ? Eat small, frequent meals instead of large meals. ? Avoid foods that cause heartburn. These foods include: ? Coffee and alcoholic drinks. ? Tomatoes and foods made with tomatoes. ? [place] or spicy foods. ? Chocolate and peppermint. ? Do not drink alcohol. General instructions ? Take cogv-mib-auhdnzd and prescription medicines only as told by your health care provider. ? Do not use any products that contain nicotine or tobacco, such as cigarettes, e- cigarettes, and chewing tobacco. If you need help quitting, ask your health care provider. ? If you are being treated for GERD, make sure you take medicines and follow all instructions as toldby your health care provider. ? Keep all follow-up visits as told by your health care provider. This is important. Contact a health care provider if: ? You have heartburn or GERD symptoms. ? You have difficulty swallowing. Get help right away if: ? You have chest pain. ? You are unable to swallow. ? You vomit blood or material that looks like coffee grounds. ? Your stool (feces) is bright red or dark. These symptoms may represent a serious problem that is an emergency. Do not wait to see if the symptoms will go away. Get medical help right away. Call your local emergency services (911 in the [place] Do not drive yourself to the hospital. Summary ? Desouza's esophagus occurs when the tissue that lines the esophagus changes or becomes damaged. ? Desouza's esophagus may be diagnosed with an upper gastrointestinal endoscopy and a biopsy. ? Treatment may include medicines, procedures to remove abnormal cells, or surgery. ? Follow your health care provider's instructions about what to eat and drink, what medicines to take, and when to call for help. This information is not intended to replace advice given to you by your health care provider. Make sure you discuss any questions you have with your health care provider. Document Revised: 11/09/2020 Document Reviewed: 11/09/2020 [employer] Patient Education ?? 2021 [employer] Patient Name:INDRA SIDHU I have received this information and my questions have been answered. Patient/Sprinkler Repair Technician Name: Patient/Sprinkler Repair Technician Signature: Relationship to Patient: Witness Name/Signature: Date: Electronically Signed on: 09/23/2022 12:34 ESTSigned by:SP * Event Display: Discharge Instructions History and physical note * Event Display: History and Physical Update * Angel Bermudez MD: PERFORM Event Display: History and Physical Authored Date: [id number] INDRA SIDHU :1955 Age:67 years Sex:Male Visit Date:09/23/2022 Chief Complaint Desouza's Esophegus History of Present Illness 67-year-old male with Desouza's esophagus. Physical Exam Developed well-nourished white male no acute distress Lungs: Clear to auscultation bilaterally Heart: Regular rhythm??abdomen: Soft nontender Assessment/Plan 1.??Desouza's esophagus??K22.70 Orders: Normal Saline Flush, 10 mL, IV Flush, Injection, As Directed, PRN power lineman, First Dose: 09/23/22 10:50:00 EST, Routine Sodium Chloride 0.9% 1,000 mL, Total Volume (mL): 1,000, 1,000 mL, Soln-IV, IV, 50 mL/hr, Start Date: 09/23/22 10:49:00 EST, 88.45 kg, Populate Charting Weight From Order, 2.09, m2 Blood Glucose Monitoring POC RE, 09/23/22 10:49:00 EST, Stop date 09/23/22 10:49:00 EST NPO, 09/23/22 10:49:00 EST, Constant Indicator Obtain consent, 09/23/22 10:49:00 EST, Constant Order Peripheral IV Insertion, 09/23/22 10:49:00 EST Saline Lock Convert From IV, 09/23/22 10:49:00 EST, Stop date 09/23/22 10:49:00 EST Vital Signs, 09/23/22 10:49:00 EST, Stop date 09/23/22 10:49:00 EST, Routine Problem List/Past Medical History Ongoing Allergic rhinitis Degeneration of lumbar intervertebral disc GERD - Gastro-esophageal reflux disease Historical No qualifying data Procedure/Surgical History ???Colonoscopy???EGD - Esophagogastroduodenoscopy???Excision of melanoma???Laparoscopic cholecystectomy???Primary repair of umbilical hernia Medications Inpatient Normal Saline Flush, 10 mL, IV Flush, As Directed, PRN Sodium Chloride 0.9% 1,000 mL, 1000 mL, IV Home !-Aspir 81 oral delayed release tablet, 81 mg= 1 tab, Oral, Daily calcium (as carbonate)-vitamin D 500 mg-400 intl units oral tablet, 1 tab, Oral, Daily glucosamine 500 mg oral capsule, 500 mg= 1 cap, Oral, Daily magnesium gluconate 500 mg oral tablet, 500 mg= 1 tab, Oral, Daily Protonix 40 mg oral delayed release tablet, 40 mg= 1 tab, Oral, Daily Vitamin C 500 mg oral tablet, 500 mg= 1 tab, Oral, Daily Vitamin D3 1000 intl units oral capsule, 25 mcg= 1 cap, Oral, Daily Allergies Hayfever Oats Walnuts Social History Alcohol Past Electronic Cigarette/Vaping Electronic Cigarette Use: Never. Substance Use Never Tobacco Former tobacco user Tobacco Use:. 1 ppd per day. 20 year(s). Family History Diabetes mellitus: Father. Heart disease: Father. Hypertension: Mother and Father. Myocardial infarction: Mother and Father. Family Member(s): ?? FATHER, at age: Unknown. Cause of : Family Member(s): ?? MOTHER, at age: Unknown. Cause of : Electronically Signed on 09/23/22 11:38 AM Angel Bermudez MD
--- OUTSIDE RECORDS SUMMARY | 2024-05-09 15:35 | XMS_ITS | Clinical Summary ---
Author Organization [facility] [place] [address] Care Team Providers Care Interventional Nurse Name Role Phone Britt Bravo Primary Care Provider Allergies Active Allergy Reactions Criticality Noted Date Comments Cat Dander 07/15/2018 Facial Mask 07/15/2018 Chlorpheniramine-Phenylpropan 2017 Oats 07/15/2018 [place] 07/15/2018 Medications Medication Sig Dispensed Refills Start Date End Date Status pantoprazole (PROTONIX) 40 mg Tablet, Delayed Release (E.C.) Take 40 mg by mouth daily. 0 06/12/2018 Active cholecalciferol, Vitamin D3, 25 mcg (1,000 unit) Capsule Take 1,000 Units by mouth daily. Active ascorbic acid, Vitamin C, (Vitamin C) 500 mg tablet Take 500 mg by mouth daily. Active BOCRUWQ-SQCYXBELC-UU NC ORAL Take 1 tablet by mouth daily. Active glucosamine/msm/nichole drt/C/hyal (GLUCOSAMINE-CHONDRO ITIN-MSM ORAL) Take 1 tablet by mouth daily. Active aspirin EC 81 mg EC (DR) tablet Take 81 mg by mouth daily. Active acetaminophen (acetaminophen Pain Relief) 500 mg tablet Take 2 tablets by mouth every 6 hours as needed for Pain. 07/14/2023 Active Additional Information Patient not taking.Reported on 08/10/2023 ibuprofen (Advil) 600 mg tablet Take 1 tablet by mouth every 6 hours as needed for Pain. 07/14/2023 Active vit A/vit C/vit E/zinc/copper (PRESERVISION AREDS ORAL) Take 1 capsule by mouth 2 times daily. chewables Active omega-3 acid ethyl esters (Lovaza) 1 gram capsule Take 2 g by mouth daily. Active fluorouraciL (EFUDEX) 5 % Cream Apply to left side of nose twice daily for 3 weeks 40 g 08/18/2023 Active Active Problems Problem Noted Date Diagnosed Date Gastroesophageal reflux 12/29/2022 Desouza's esophagus 12/29/2022 Chronic back pain 12/29/2022 Melanoma 12/29/2022 Mediastinal adenopathy 12/29/2022 Overview (12/29/2022): New Femoral hernia 11/19/2019 Family History Medical History Relation Comments Arthritis Brother Diabetes Father Heart Disease Father Hypertension Father Myocardial Infarction Mother Breast Cancer Paternal Aunt Cancer Paternal Grandmother type unknow n Relation Status Comments Brother Father Mother Paternal Aunt Alive Paternal Grandmother Social History Tobacco Use Types Packs/Day Years Used Date Smoking Tobacco: Former Cigarettes 2 21 1 - 1992 Smokeless Tobacco: Never Tobacco Cessation:Counseling Given: Not Answered Alcohol Use Standard Drinks/Week Comments Not Currently 0 (1 standard drink = 0.6 oz pur e alcohol) quit 16 years ago DH IPV Inpatient Questions Answer Date Recorded Does [...] on file Sexual Orientation Not on file Last Filed Vital Signs Vital Sign Reading Time Taken Comments Blood Pressure 148/81 07/14/2023 6:15 PM EST Pulse 62 07/14/2023 2:00 PM EST Temperature 36.3 ??C (97.3 ??F) 07/14/2023 6:15 PM ES T Respiratory Rate 16 07/14/2023 2:00 PM EST Oxygen Saturation 97% 07/14/2023 6:15 PM EST Inhaled Oxygen Concentration - - Weight 82.1 kg (181 lb) 07/14/2023 2:00 PM EST Height 177.8 cm (5' 10) 07/14/2023 2:00 PM EST Body Mass Index 25.97 07/14/2023 2:00 PM EST Plan of Treatment Health Maintenance Due Date Last Done Comments CT Colonography 1955 Colonoscopy 1955 Colorectal Cancer Screening 1955 FIT DNA 1955 FIT 1955 Sigmoidoscopy (10 year) with FIT yearly 1955 Sigmoidoscopy 1955 Hepatitis C Screening 1974 Lipid Screening 1974 Tdap adult 1975 Tetanus vaccine 1975 Diabetes Screening (HgbA1C or Glucose) 1996 Zoster vaccine (1 of 2) 2006 Advance Directive 2011 AAA Screen 2021 Pneumoccocal Vaccine: 65+ (1 of 1 - PCV) 2021 Covid-19 Vaccine (1 - 2022-24 season) 2023 Influenza (Flu) vaccine (1 o f 1 - Influenza standard series) 05/07/2024 Care Teams Interventional Nurse Relationship Specialty Start Date End Date Britt Bravo PA [address] [place] [address] PCP - General Family Medicine 11/18/22
--- OUTSIDE RECORDS SUMMARY | 2024-05-09 15:35 | XMS_ITS | Encounter Summary ---
Author Organization [facility] Address [facility] [place] [address] Care Team Providers Care Laborer Orchard Name Role Phone Britt Bravo Primary Care Provider [phone] Encounter Details Date Type Department Care Team (Late st Contact Info) Description 07/14/2023 2:27 PM EST - 07/14/2023 4:42 PM EST [place] [id number] Romain Casarez MD [facility] [place] [address] HERNIA REPAIR, INGUINAL, RECURRENT (WRVU 9.99) Social History Tobacco Use Types Packs/Day Years Used Date Smoking Tobacco: Former Cigarettes 2 21 1 972 - 1992 Smokeless Tobacco: Never [...] Sign Reading Time Taken Comments Blood Pressure 126/77 07/14/2023 2:00 PM EST Pulse 62 07/14/2023 2:00 PM EST Temperature 36.1 ??C (97 ??F) 07/14/2023 2:00 PM EST Respiratory Rate 16 07/14/2023 2:00 PM EST Oxygen Saturation 98% 07/14/2023 2:00 PM EST Inhaled Oxygen Concentration - - Weight 82.1 kg (181 lb) 07/14/2023 2:00 PM EST Height 177.8 cm (5' 10) 07/14/2023 2:00 PM EST Body Mass Index 25.97 07/14/2023 2:00 PM EST documented in this encounter Discharge Instructions * Discharge Instructions* Jodie Damian RN - 07/14/2023 5:55 PM EST LAST DOSE OF TYLENOL WAS AT 215PM * Patient Instructions* Holden Nugent MD - 07/14/2023 5:38 PM EST Procedure: Right groin exploration, lipoma excision Activity: - There are no activity restrictions. - May walk daily for exercise. If light exercise increases pain at the wound site, back off on activities for one week and resume slowly. Wound Care: - Your incision has been closed with Steri Strips and Band Aids. You may remove the Band Aids on Wednesday evening. The Steri Strips will fall off on their own after about 7-10 days. - Okay to shower with soap and water Wednesday night. Okay to get incisions wet. Do not scrub aggressively and just pat dry. - Do not soak in a bath tube for 4 weeks. Gently use a towel to pat dry, or air dry the wound and surrounding skin, and it does not need to be covered again. Bruising and swelling of the scrotum is normal. Redness or drainage of fluid is not. Diet: - Make sure to stay hydrated by drinking 6-8 cups of liquid per day - Gradually increase your food intake starting with wood heel cementer foods to a more regular diet Driving Be sure not to drive or operate heavy machinary while on pain medications provided to you. This could be hazardous. Avoiding Constipation: -- Miralax 17g (or generic version: polyethylene glycol) mixed with a cup of water taken daily willhelp prevent constipation You should start taking this even if you are not taking Narcotic pain medications. -- Stool softeners such as Colace (docusate sodium) 250mg taken twice a day or Dulcolax (bisacodyl)25mg daily can be used -- Incorporate fiber to a goal of 25 gms daily with fruits, vegetables, or fiber supplements like Benefiber (wheat dextrin) -- If you haven't had a bowel movement in 1-2 days, you can get over the counter Dulcolax suppositories, insert one per rectum, and it will help you have a BM -- Drink a minimum of 48 oz per day to avoid straining with defecation. -- If it has been more than 2 days without a BM, you can try a Dulcolax suppository. It is very important to avoid constipation and straining while trying to have a bowel movement. It is common to experience constipation after your operation and when taking narcotics. Please use laxative medications such Polyethylene glycol (Miralax) or glycerin suppositories to assist you with having regular bowel movements. Please work towards having a bowel movement every 1-2 days. A hot drinkeach morning will also help the sphincter to work in pushing the stool forward. It is important to stay hydrated, about 45-60 fluid ounces daily, and this will help your bowel function. PAIN MEDICATIONS: Take Tylenol 1000mg (two extra strength tablets) up to every 6 hours. Do NOT take more than 4000mg every day, AND Take Ibuprofen 600-800mg every 8 hours with some food. Avoid taking Ibuprofen for longer than 2 weeks. WHEN TO CALL: Wound: Call us for increased redness, swelling, drainage or increased pain. Fevers, chills, feeling unwell - If your incision becomes red, swollen, or has any bloody or pus-like drainage. - If you have a fever of 101.5 F or greater or if you have chills. - If you have increased pain, unrelieved by your pain medications. - If you have persistent nausea, vomiting, diarrhea, or no bowel movement for more than 2 days after discharge from the hospital. - If you develop any unusual signs or symptoms, including chest pain, shortness of breath, pulmonary embolism, leg swelling, pain or redness that is abnormal for you, and other symptoms of concern. - If you have any questions or concerns. How to Call the Doctor - You may contact your doctor Wednesday through Wednesday during the daytime hours by calling the surgeryoffice at [phone]. - After hours, weekends and holidays, you may call the hospital grinding machine operator portable at [phone] Valdes's surgery team paged. Follow up You have follow-up as below. If you have any concerns, need to reschedule, or would like to switch to an in person visit, please call our clinic at [phone]. Future Appointments Date Time Provider Department Center 08/10/2023 12:00 PM Randi Harkins APRN [facility] SURG [facility] documented in this encounter Medications at Time of Discharge Medication Sig Dispensed Refills Start Date End Date acetaminophen (acetaminophen Pain Relief) 500 mg tablet Take 2 tablets by mouth every 6 hours as needed for Pain. 07/14/2023 ibuprofen (Advil) 600 mg tablet Take 1 tablet by mouth every 6 hours as needed for Pain. 07/14/2023 cholecalciferol, Vitamin D3, 25 mcg (1,000 unit) Capsule Take 1,000 Units by mouth daily. ascorbic acid, Vitamin C, (Vitamin C) 500 mg tablet Take 500 mg by mouth daily. WXOIIIV-MIHYPFSMW-MCMB ORAL Take 1 tablet by mouth daily. glucosamine/msm/chondrt/C /hyal (GLUCOSAMINE-CHONDROITIN- MSM ORAL) Take 1 tablet by mouth daily. aspirin EC 81 mg EC (DR) tablet Take 81 mg by mouth daily. pantoprazole (PROTONIX) 40 mg Tablet, Delayed Release (E.C.) Take 40 mg by mouth daily. 0 06/12/2018 documented as of this encounter Progress Notes * Jodie Damian RN - 07/14/2023 6:25 PM EST Patient alert and oriented, vital signs stable. Reviewed discharge instructions; patient and _wife verbalized understanding. Copy of instruction sheet with contact numbers for questions/concerns with __wife . Pain assessment documented. Patient escorted out of department via wheelchair with _RN . documented in this encounter H&P Notes * Romain Casarez MD - 07/14/2023 2:18 PM EST Patient Name: Diallo Solomon Patient Age: 67 y.o. Birthdate: 1955 Admit date: 07/14/2023 Attending Physician: Romain Casarez MD 67 yo male s/p open right inguinal hernia repair with persistent probable femoral hernia here for laparoscopic repair possible open Patient Active Problem List Diagnosis Code Femoral hernia K41.90 Gastroesophageal reflux K21.9 Desouza's esophagus K22.70 Chronic back pain M54.9, G89.29 Melanoma C43.9 Mediastinal adenopathy R59.0 Past Medical History: Diagnosis Date GERD (gastroesophageal reflux disease) Past Surgical History: Procedure Laterality Date CHOLECYSTECTOMY, LAPAROSCOPIC c/b deep space infection requiring IR drainage INGUINAL HERNIA REPAIR Right PRO [facility] EBUS GUIDED SAMPL 3/> NODE STATION/STRUX N/A 01/01/2023 BRONCH, W ENDOBRONCHIAL ULTRASOUND (EBUS) GUIDED SAMPLING, 3+ NODES (WRVU 4.96) performed by Cameron Shelby MD at [facility] MAIN OR SKIN CANCER EXCISION Right lower right back No current facility-administered medications on file prior to encounter. Current Outpatient Medications on File Prior to Encounter Medication Sig Dispense Refill ascorbic acid, Vitamin C, (Vitamin C) 500 mg tablet Take 500 mg by mouth daily. PIIJHHI-UNAKFOAXU-PSKZ ORAL Take 1 tablet by mouth daily. glucosamine/msm/chondrt/C/hyal (GUCRBHTNCTF-TBNPJCTLMAJ-JKZ ORAL) Take 1 tablet by mouth daily. aspirin EC 81 mg EC (DR) tablet Take 81 mg by mouth daily. pantoprazole (PROTONIX) 40 mg Tablet, Delayed Release (E.C.) Take 40 mg by mouth daily. 0 cholecalciferol, Vitamin D3, 25 mcg (1,000 unit) Capsule Take 1,000 Units by mouth daily. Allergies Allergen Reactions Cat Dander Dust & Pollen Filter Mask [Facial Mask] Hay Fever And Allergy Relief [Chlorpheniramine-Phenylpropan] Oats [place] GEN: NAD HEENT: trachea midline, no scleral icterus PULM: normal respiratory effort CARD: well perfused, stable ABD: soft, non tender, non distended Rt groin swelling below inguinal ligament Skin: no rash, no diaphoresis MSH: no gross deformity NEURO: GCS 15 PSYCH: normal mood and affect documented in this encounter Miscellaneous Notes * Op Note - Romain Casarez MD - 07/14/2023 4:[address] [facility] Operative Note Patient Name: Diallo Solomon : [id number] MR#: [id number] Case Date: 07/14/2023 Surgeon: Surgeon(s) and Role: * Romain Casarez MD - Primary * Thais Allison MD - Resident - Assisting * Holden Nugent MD - Fellow - Assisting Preoperative diagnosis: Inguinal Hernia Postoperative diagnosis: Inguinal Hernia Procedure(s) (LRB): HERNIA REPAIR, INGUINAL, RECURRENT (WRVU 9.99) (Right) MODIFIER MESH,BARD FLAT MESH (N/A) Anesthesia: General Estimated Blood Loss: 7 mL Specimens removed during surgery: Order Name Source Comment Collection Info Order Time SPECIMEN TO PATHOLOGY Right Groin Lipoma OR 26 ; [id number] Inguinal Hernia Right Groin Lipoma excision No 07/14/2023 5:17 PM Time specimen removed from patient: 5:17 PM Number of tissue samples (in container) 1 Biospecimen to store? No Drains: * No LDAs found * Surgical Closure: Primary Closure - skin incision is completely closed without any wires, olayinka, drains or other devices Disposition: awakened from anesthesia, extubated and taken to the recovery room in a stable condition, having suffered no apparent untoward event. Condition: doing well without problems (Please see the Surgical Encounter Summary for any Implant and Specimen details pertinent to this patient.) Diallo Solomon is a 67-year-old gentleman who had a previous right inguinal hernia repair through an open approach. He had a persistent swelling in his lower groin below the inguinal ligament which was quite tender and nonreducible. He is here today for assessment for either laparoscopic femoral hernia repair or lipoma excision. Under general anesthesia and endotracheal intubation with IV antibiotics infusing and SCDs in placea team timeout was performed. We were unable to reduce any lump that was palpable below the inguinal ligament and this was more suspicious for a lipoma but given his tenderness we proceeded with a pre peritoneal exploration. A small infraumbilical incision was created and dissection carried down where the anterior sheath was divided. The rectus muscle was pulled laterally and a kidney shaped balloon was placed in the preperitoneal space down to the pubis. A scope was inserted and inflation of the balloon up to 15 pumpson the bulb was used and dissection carried under direct vision. A [place] port was then placed in the same space after removing the balloon and the placed space was insufflated with CO2 to a pressure of 15 mmHg. A small 5 mm incision was made below this and a PD port was placed in the space. Bluntdissection using the Juve grasper identified Anam's ligament lacunar ligament the direct space as well as some visualization of the indirect space. There appeared to be no femoral herniation present. These ports were then removed and the fascia to the 12 mm port site closed with a [id number] 0 Vicryl suture. A small skin crease incision was then made in the groin and dissection was carried down to the subcutaneous tissue where a large lipoma was excised without difficulty. Palpation ofthe femoral canal revealed no herniation through the medial edge along the lacunar ligament. This was sent for pathology. All skin sites were then closed with running subcuticular 4-0 Monocryl suture followed by Mastisol,Steri-Strips and Band-Aids. Patient returned to the recovery in stable condition, sponge and instrument counts were correct. Attestation: Case Date: 07/14/2023 I was present and I participated during the entire procedure (does not need to include opening and closing). ROMAIN CASAREZ MD 07/14/2023 documented in this encounter Plan of Treatment Not on file documented as of this encounter Procedures Procedure Name Priority Date/Time Associated Diagnosis Comments SURGICAL PATHOLOGY REPORT Routine 07/14/2023 5:17 PM EST SPECIMEN TO PATHOLOGY Routine 07/14/2023 5:17 PM EST Repair Recurr Inguin Elmo, Reducibl ([id number]) 07/14/2023 4:21 PM EST Inguinal Hernia POCT GLUCOSE Routine 07/14/2023 2:08 PM EST HERNIA REPAIR, INGUINAL, RECURRENT Routine 07/14/2023 1:34 PM EST documented in this encounter Results * Surgical Pathology Report (07/14/2023 5:17 PM EST) Final Diagnosis [id number] ? Location: [facility]; [facility]; The signing pathologist has (i) examined the relevant preparation(s) for the specimen(s) and (ii) rendered or confirmed the diagnosis(es). . ?Surgical Pathology DIAGNOSIS A - Soft tissue, right groin; excision: ?Mature adipose tissue, clinically a lipoma. Electronically signed by: ?Carole RAMIREZ, Kareem Bautista Verified: ??07/23/2023 14:18 ??Pathologist Performed at: ??-[facility] Dept. of Pathology, [place] [address] Senior Front End Web Developer: Silviano Arias MD, FCAP, ??CLIA Certificate: [id number] SPECIMEN(S) SUBMITTED A - Right groin CLINICAL INFORMATION PROVIDED: Inguinal hernia. SPECIMEN PROCESSING A - Labeled/Fixative: ?? Right groin lipoma, fresh. Quantity/Size: Single, 6.8 x 5.5 x 2.5 cm. Tissue Description: Lobulated glistening yellow fatty soft tissue mass with a delicate, translucent capsule. ??Cut surfaces are homogeneous. Sections/Processi ng: Inked, serially sectioned and pest control service representative sections submitted in 4 cassettes labeled A1-A4. ??ajw 07/23/2023 2:18 PM EST [facility] SOFT TISSUE MASS / Unknown 07/14/2023 5:17 PM EST 07/14/2023 5:17 PM EST Romain Casarez MD PATHOLOGY/CYTOLOGY O JEWEL Performing Organization Address City/[facility] Co de Phone Number [facility] [place] [address] [facility] [place] [address] * Specimen to Pathology (07/14/2023 5:17 PM EST) AP Specimen 07/14/2023 5:17 PM EST 07/14/2023 5:17 PM EST Narrative [facility] - 07/14/2023 5:17 PM EST Specimen requisition ordered. ??Separate Pathology report to follow Romain Casarez MD PATHOLOGY/CYTOLOGY Sushma HOLLOWAY Performing Organization Address [facility] Co de Phone Number [facility] [place] [address] * POCT Glucose (07/14/2023 2:08 PM EST) Glucose, POC 86 65 - 199 mg/dL [facility] Comment: Supplemental ranges: <140 mg/dL before meals <180 mg/dL all other times of the day Blood 07/14/2023 2:08 PM EST 07/14/2023 2:08 PM EST Romain Casarez MD POINT OF CARE TEST O JEWEL Performing Organization Address [facility] Co de Phone Number [facility] [place] [address] documented in this encounter Visit Diagnoses Not on filedocumented in this encounter Administered Medications Inactive Administered Medications - up to 3 most recent administrations Medication Order MAR Action Action Date Dose Rate Site acetaminophen (Tylenol) tablet 975 mg 975 mg, Oral, ONCE, 1 dose, On Wed07/14/23 at 1415, Maximum dose of acetaminophen is 4,000 mg from all sources in 24 hours. When ordered for pain, acetaminophen should be given even when other ordered pain medications are indicated. , Day of Surgery (Day of Procedure), Routine Given 07/14/2023 2:14 PM EST 975 mg BUpivacaine (pf) (Marcaine) (2.5 mg/mL) 0.25% injection PRN, Starting on Wed07/14/23 at 1724, Until Wed07/14/23 at 2027, Intra-Operative (Intra-Procedure), Routine Given 07/14/2023 5:24 PM EST 30 mLs 19- Surgical Site heparin (porcine) (5,000 units/1 mL) subcutaneous injection 5,000 Units 5,000 Units, Subcutaneous, ONCE, 1 dose, On Wed07/14/23 at 1415, Day of Surgery (Day of Procedure), Routine Given 07/14/2023 2:15 PM EST 5,000 Units Right Arm documented in this encounter Active and Recently Administered Medications Times are shown in EST. Scheduled Medication Order 07/12/2023 07/13/2023 07/14/2023 acetaminophen (Tylenol) tablet 975 mg (COMPLETED) 975 mg, Oral, ONCE, 1 dose, On Wed07/14/23 at 1415, Maximum dose of acetaminophen is 4,000 mg from all sources in 24 hours. When ordered for pain, acetaminophen should be given even when other ordered pain medications are indicated. , Day of Surgery (Day of Procedure), Routine 1414 (Given - Provid er: Linsey Aceves RN) ceFAZolin (Ancef) 2 g vial attach to sodium chloride 0.9% 100 mL Mini-Bag Plus (COMPLETED) 2 g, Intravenous, EVERY 4 HOURS, 1 dose, First dose on Wed07/14/23 at 1415, Administer over 30 Minutes, Intra-Operative (Intra-Procedure), Indication for (Active or Suspected): Prophylaxis 1644 (New Bag - Prov ider: Manav Arceo) heparin (porcine) (5,000 units/1 mL) subcutaneous injection 5,000 Units (COMPLETED) 5,000 Units, Subcutaneous, ONCE, 1 dose, On Wed07/14/23 at 1415, Day of Surgery (Day of Procedure), Routine 1415 (Given - Provid er: Linsey Aceves RN) PRN Medication Order 07/12/2023 07/13/2023 07/14/2023 BUpivacaine (pf) (Marcaine) (2.5 mg/mL) 0.25% injection (CANCELED) PRN, Starting on Wed07/14/23 at 1724, Until Wed07/14/23 at 2026, Intra-Operative (Intra-Procedure), Routine 1724 (Given - Provid er: Romain Casarez MD) documented in this encounter Care Teams Laborer Orchard Relationship Specialty Start Date End Date Britt Bravo PA [address] [address] PCP - General Family Medicine 11/18/22 documented as of this encounter
--- OUTSIDE RECORDS SUMMARY | 2024-05-09 15:35 | XMS_ITS | Continuity of Care Document ---
Author Organization [facility] Ambulatory Clinics Address [address] [place] [address] Care Team Providers Care Orthopedic Technician Name Role Phone MEGAN FLORIAN, MILIND Calles Primary Care Physician [phone] Encounter [facility] FIN NBR [id number] Date(s): 04/26/24 - 04/26/24 [facility] [address] [place] [address]- Discharge Disposition: Home Allergies, Adverse Reactions, Alerts Substance Criticality Severity Reaction Reaction Severity Status Hayfever Unable to assess criticality Unknown Active Assessment and Plan Future Appointments Future Scheduled Tests Radiology* CT Chest w/o [...] Date: 06/25/22 Stop Date: 07/02/22 Status: Ordered pantoprazole 40 mg oral delayed release tablet 40 mg = 1 tab, Oral, BID, Take 1 tablet 30 minutes before breakfast, second tablet 30 minutes before supper, # 60 tab, 11 Refill(s), Pharmacy: [id number], 178, cm, 08/03/23 9:08:00 EST, Height, 81.65, kg, 08/03/23 9:12:00 EST, Weight Dosing Start Date: 08/03/23 Stop Date: 07/28/24 Status: Ordered Protonix 40 mg oral delayed [...] information Care Team Personnel Name: MEGAN FLORIAN ([facility]), MILIND Calles Position: No Access Member Role: Primary Care Physician Address: [address] [place] [id number] Care Team Related Persons Name: ANKUSH SIDHU Insurance Providers Guarantor name: INDRA THEA Health Plan Information #: 1 Payer: [facility] Member Number: NA Policy Number: NA Health Plan Information #: 2 Payer: [employer] Member Number: NA Policy Number: NA Health Plan Information #: 3 Payer: [facility] Member Number: NA Policy Number: NA Health Plan Information #: 4 Payer: [employer] Member Number: NA Policy Number: NA
--- OUTSIDE RECORDS SUMMARY | 2024-05-09 15:35 | XMS_ITS | Encounter Summary ---
Author Organization [facility] Address [facility] [place] [address] Care Team Providers Care Entry Level Account Executive Name Role Phone Britt Bravo Primary Care Provider [phone] Encounter Details Date Type Department Care Team (Late st Contact Info) Description 07/16/[address] [place] [address] Foreign Varela MD Social History Tobacco Use Types Packs/Day Years [...] on file documented as of this encounter Miscellaneous Notes * Telephone Encounter - Monica Blackwell - 07/16/2023 8:59 AM EST Clinic Coverage - Reason for Call: Schedule/Reschedule Appointment PCP: KAMINI Ng / Treating provider: Avery Carrasquillo MD Reason: Schedule Appointment Needed: FUV Reason for Visit : to recheck back after biopsies came back benign Date of Last Appointment :06/17/23 Caller Name (If other than patient): Diallo Solomon Relationship to Patient (if other than self): self Callback number: [phone] Best time to Call: anytime Route Per Clinic Coverage Page documented in this encounter Plan of Treatment Not on file documented as of this encounter Visit Diagnoses Not on filedocumented in this encounter Care Teams Entry Level Account Executive Relationship Specialty Start Date End Date Britt Bravo PA [address] [place] [id number] PCP - General Family Medicine 11/18/22 documented as of this encounter
--- OUTSIDE RECORDS SUMMARY | 2024-05-09 15:35 | XMS_ITS | Encounter Summary ---
Author Organization [facility] Address [facility] [place] [address] Care Team Providers Care Food Or Baggage Handling Rampman Name Role Phone Britt Bravo Primary Care Provider + [phone] Encounter Details Date Type Department Care Team (Late st Contact Info) Description 06/17/2023 11:00 AM EDT Office Visit Dermatology at [facility] [address] [place] [id number] Foreign Varela MD Lentigines; Multiple benign melanocytic nevi of upper and lower extremities and trunk; History of melanoma in situ; Seborrheic keratoses; Dermatofibroma; Feared condition not demonstrated; Rosacea; Skin tag; Skin erosion; Onychomycosis of great toe; Neoplasm of unspecified behavior of bone, soft tissue, and skin; Seborrheic dermatitis Social History Tobacco Use Types Packs/Day Years [...] as of this encounter Progress Notes * Roland Alvarez, [facility] - 06/17/2023 11:00 AM EDT Images from the original note were not included. DEPARTMENT OF DERMATOLOGY Medical Dermatology Clinic Provider: Foreign Varela MD Patient's preferred name Diallo Preferred contact method for results [x]Phone []myD-H []Letter Detailed phone message OK? Y Are there any other people with whom we may discuss your care? - Aby Past Medical History Date, location, treatment Melanoma 07/25/2018 Right lower back, at least melanoma in situ, s/p excision with 1cm margins. Suspicious for invasion of 0.3mm. Overlying scar, lentiginous compound melanocytic nevus, present at the peripheral specimen edge Dysplastic nevi N SCC N BCC N AKs LN2 UV Exposure & Protection + history of tanning bed use + history of blistering sunburn Sun Protection: SPF 30+ Applies about 50% Wears a shirt when working outside now, but used to work without Other relevant past medical history N Family History Details Melanoma N NMSC N Other relevant family history N Social History Self-employed contractor, builds houses Pre-Procedure Questions Details Allergy to lidocaine, epinephrine, Dermabond, chlorhexidine, or adhesives N Bleeding disorder or blood thinners ASA 81 mg Pacemaker, defibrillator, deep brain stimulator, cochlear implant N History of Present Illness: Diallo Solomon is a 67 y.o. Patient returns to clinic today for a FSE.Patient reports: - Spot on the left side of the nose that is sore and sometimes scabs and bleeds once every few months. Hurts only when touched. States every time he's here, we burn something off. - Multiple scaly spots on the scalp. Last visit at Dermatology: 11/19/2021 Last visit with this provider: Visit date not found Medications: Reviewed in eD-H Allergies: Reviewed in eD-H Skin Examination: Full skin examination: Patient asked to undress to their comfort level. Verbalized that the provider's preference is that patient remove all clothing and that the provider will not examine areas patient elects to keep covered. Examination of the scalp, hair, head, face, ears, neck, chest, axillae, abdomen, back, buttocks, genitalia, and upper and lower extremities was normal with the exception ofthe findings below. Assessment/Plan A. Nevus r/o atypia - On the upper back, near the midline, is a melanocytic nevus that is highly irregular in shape and is about 4-5 mm in size. On dermoscopy, it shows some areas of extra pigment, with some areas that are actually white. (Figure 1) - Recommended a skin biopsy. After discussion of potential risks (scarring, bleeding, infection), patient agreed to proceed. - Patient denies known allergies to lidocaine and epinephrine. Procedure: Skin punch biopsy. Location: Upper back, near midline Discussed indications for the procedure and expectations including risks and benefits. Verbal consent obtained. Time out performed. Skin prepped with alcohol. Local anesthesia with 1% xylocaine, 1/100,000 epinephrine. A 3 mm punch biopsy to the level of the subcutis was performed. Specimen submitted to Pathology. Wound closed with 5-0 fast gut sutures. There were no complications; patient tolerated the procedure well. Wound dressed. Post-procedure expectations (including discomfort management),wound care and activity restrictions reviewed. - Follow-up based on pathology results. B. Nevus r/o atypia - Below the web space of the left big toe and 2nd toe is a melanocytic nevus that is about 3 mm in size. By visual inspection as well as dermoscopy, it is a brown color. The center of it does have a very tiny pigmented area that is round and is distrinctly different from the rest of the nevus. (Figure 2) - Recommended a skin biopsy. After discussion of potential risks (scarring, bleeding, infection), patient agreed to proceed. - Patient denies known allergies to lidocaine and epinephrine. Procedure: Skin punch biopsy. Location: web space between left 1st and 2nd toes Discussed indications for the procedure and expectations including risks and benefits. Verbal consent obtained. Time out performed. Skin prepped with alcohol. Local anesthesia with 1% xylocaine, 1/100,000 epinephrine. A 3 mm punch biopsy to the level of the subcutis was performed. Specimen submitted to Pathology. Wound closed with 5-0 fast gut suture. There were no complications; patient tolerated the procedure well. Wound dressed. Post-procedure expectations (including discomfort management), wound care and activity restrictions reviewed. - Follow-up based on pathology results. #. Feared Condition Not Demonstrated - Presentation as per HPI not identified on examination of theleft dorsum nose. - Return to clinic if recurs. Patient agrees to plan. #. Erosion - On the back of the neck is an area of erosion. It may be due to scratching. On dermoscopy, there are some areas that look like they've been scratched. #. Seborrheic Dermatitis - Yellowish, greasy scale overlying erythematous patches on the chest. #. Rosacea - Scattered red, acneiform papules/pustules in a background of erythema on the central face. #. Onychomycosis - Thickened, yellowed nails with distal onycholysis and subungual debris on the right big toenail. - Discussed that this is caused by a fungus. #. Skin Tags - Sessile, flesh-colored papules on the axillae. - Discussed benign nature of lesions and provided reassurance. No treatment necessary at this time. #. Dermatofibroma - Left lateral calf: 8 mm firm brown papule. - Counseled: Dermatofibromas, benign/non-cancerous growth of dermal dendritic histiocyte cells, commonly arise at site of a minor injury and etiology is unknown, prognosis, treatment options if recurs and/or is symptomatic. #. Solar lentigines - 0.3-0.6cm light-brown evenly pigmented, well-demarcated macules in a photodistributed pattern on the face, trunk and extremities. - Recommend diligent sun protection (hats/shade/clothing/sunscreen) - Discussed warning signs of skin cancer #. Benign nevi - Scattered medium-brown macules and papules on the head, trunk, and extremities. - On the back are several nevi that are different shapes/configurations. They vary in size from 2 to 4-5 mm. Some of them are not necessarily abnormal on dermoscopy, but their shape is a little bit irregular. - Reassured of benign appearance on exam today. - Reviewed warning signs of skin cancer - Recommend daily sun protection with protective clothing and SPF 30+ #. Seborrheic keratoses - estevez/brown waxy stuck-on papules and plaques on the trunk and extremities. - Reassured of the benign nature of these lesions. - No treatment needed. #. History of MIS with suspicion for invasion of 0.3mm - Well-healed surgical scar on the right lower back with NER and no LAD as above. - Upon inspection, there is no evidence of recurrence visually or by palpation. I don't feel any surrounding lymph nodes. No pigmented detected within the excision on dermoscopy. - No right axillary lymph nodes detected. - Discussed importance of sun protection, sun avoidance strategies, protective clothing, and sunscreen. - continue regular skin exams. Figure 1 Figure 2 Photo(s) taken and charted with patient's verbal consent. RTC: Pending pathology; otherwise, 1 year for FSE []Note routed to technical assoc [x]Recall placed in scheduling system []Appointment scheduled at checkout Scribe attestation: YUNIEL Griffiths has performed the documentation for this encounter in the presence of and acting as a scribe for Foreign Varela MD. I performed the above scribed service and agree with the accuracy of the documentation in this encounter. Reviewed and signed by: Foreign Varela MD Dermatology [facility] documented in this encounter Plan of Treatment Not on file documented as of this encounter Procedures Procedure Name Priority Date/Time Associated Diagnosis Comments SPECIMEN TO PATHOLOGY Routine 06/17/2023 12:16 PM EDT Neoplasm of unspecified behavior of bone, soft tissue, and skin SPECIMEN TO PATHOLOGY Routine 06/17/2023 12:16 PM EDT Neoplasm of unspecified behavior of bone, soft tissue, and skin SURGICAL PATHOLOGY REPORT Routine 06/17/2023 11:45 AM EDT documented in this encounter Results * Specimen to Pathology (06/17/2023 12:16 PM EDT) AP Specimen 06/17/2023 12:1 6 PM EDT 06/17/2023 12:16 PM EDT Narrative [facility] - 06/17/2023 12:16 PM EDT Specimen requisition ordered. ??Separate Pathology report to follow Foreign Varela MD PATHOLOGY/CYTOLOGY O RDERABLES [facility] [place] [address] * Specimen to Pathology (06/17/2023 12:16 PM EDT) AP Specimen 06/17/2023 12:1 6 PM EDT 06/17/2023 12:16 PM EDT Narrative [facility] - 06/17/2023 12:16 PM EDT Specimen requisition ordered. ??Separate Pathology report to follow Foreign Varela MD PATHOLOGY/CYTOLOGY O JEWEL [facility] [place] [id number] * Surgical Pathology Report (06/17/2023 11:45 AM EDT) Final Diagnosis [id number] ? Location: [facility] The signing pathologist has (i) examined the relevant preparation(s) for the specimen(s) and (ii) rendered or confirmed the diagnosis(es). . ?Surgical Pathology DIAGNOSIS A - Upper back near midline, skin punch biopsy: - Pigmented a ctinic keratosis with prominent dermal melanophages B - Web space between left 1st and 2nd toes, skin punch biopsy: - ??Compound melanocytic nevus, extending close to the peripheral specimen edge Electronically signed by: ?Valentin RAMIREZ, PhD, Tylor Calles Verified: ??06/28/2023 12:43 ??Dermatopatholo gist, Bone & Soft Tissue Pathologist Performed at: ??-[facility] Dept. of Pathology, [place] [address] Commercial Lines Sales Executive: Silviano Arias MD, FCAP, ??CLIA Certificate: [id number] DISCUSSION A - The prominent dermal melanophages may represent a post-inflammator y change. ADDITIONAL STUDIES A - SOX10 shows no significant increase in melanocytes. B- SOX10 highlights the melanocytes. PRAME is negative. SPECIMEN(S) SUBMITTED A - upper back, near the midline, skin punch (1) B - web space between left 1st and 2nd toes, skin punch (1) CLINICAL INFORMATION A - Nevus R/O atypia - melanocytic nevus that is highly irregular in shape and is about 4-5 mm in size. On dermoscopy that shows some areas of extra pigment, with some areas that are actually white. B - Nevus R/O atypia - melanocytic nevus that is about 3 mm in size, by visual inspection as well as dermoscopy, it is a brown color. The center but does have a very tiny pigmented area that is round and is distinctly different from the rest of the nevus. SPECIMEN PROCESSING A - Labeled/Fixative : Upper back near the midline, formalin. Quantity/Size: ??Single, 0.4 cm excised to a depth of 0.5 cm. Tissue Description: Punch of brown skin. Sections/Process ing: Bisected and entirely submitted in 1 cassette labeled A1. B - Labeled/Fixative : Web space between first and second toes, formalin. Quantity/Size: ??Single, 0.4 cm excised to a depth of 0.4 cm. Tissue Description: Punch of brown skin. Sections/Process ing: Bisected and entirely submitted in 1 cassette labeled B1. ??sdy 06/28/2023 12:43 PM EDT [facility] SPECIMEN FROM SKIN / Unknown 06/17/2023 11:45 AM EDT 06/17/2023 11:45 AM EDT SPECIMEN FROM SKIN / Unknown 06/17/2023 11:45 AM EDT 06/17/2023 11:45 AM EDT Foreign Varela MD PATHOLOGY/CYTOLOGY O RDERABLES [facility] [address] [place] [address] documented in this encounter Visit Diagnoses Diagnosis Lentigines Other dyschromia Multiple benign melanocytic nevi of upper and lower extremities and trunk History of melanoma in situ Personal history of malignant melanoma of skin Seborrheic keratoses Dermatofibroma Benign neoplasm of skin, site unspecified Feared condition not demonstrated Person with feared complaint in whom no diagnosis was made Rosacea Skin tag Unspecified hypertrophic and atrophic condition of skin Skin erosion Unspecified disorder of skin and subcutaneous tissue Onychomycosis of great toe Neoplasm of unspecified behavior of bone, soft tissue, and skin Seborrheic dermatitis Seborrheic dermatitis, unspecified documented in this encounter Care Teams Food Or Baggage Handling Rampman Relationship Specialty Start Date End Date Britt Bravo PA [address] [place] [phone] PCP - General Family Medicine 11/18/22 documented as of this encounter
--- OUTSIDE RECORDS SUMMARY | 2024-05-09 15:35 | XMS_ITS | Encounter Summary ---
Author Organization [facility] Address [facility] [place] [address] Care Team Providers Care Laborer Tan House Name Role Phone Britt Bravo Primary Care Provider + [phone] Encounter Details Date Type Department Care Team (Late st Contact Info) Description 08/10/2023 2:00 PM EST Office Visit Dermatology at [facility] [address] [place] [address] Fernando Corona MD [facility] [place] [address] Neoplasm of unspecified behavior of bone, soft tissue, and skin; AK (actinic keratosis); Skin tags, multiple acquired; Multiple nevi Social History Tobacco Use Types Packs/Day Years Used Date Smoking Tobacco: Former Cigarettes 2 21 1 2 - 1992 Smokeless Tobacco: Never Alcohol Use [...] as of this encounter Progress Notes * Shira Sinha RN - 08/10/2023 2:00 PM EST Images from the original note were not included. DEPARTMENT OF DERMATOLOGY Medical Dermatology Clinic Provider: Fernando Corona MD Patient's preferred name Diallo Preferred contact [...] of Present Illness: Diallo Solomon is a 68 y.o. Patient returns to clinic today to recheckbiopsy site on the back. Patient state that he believes the biopsy site is healing well. Last visit at Dermatology: 06/17/2023 Last visit with this provider: Visit date not found Medications: Reviewed in eD-H Allergies: Reviewed in eD-H Skin Examination: Waist-up skin examination: Patient was asked to disrobe to the level of their comfort. Patient elected to remain clothed below the waist. Examination of the scalp, hair, face, ears, neck, back, chest, abdomen, and upper extremities was normal with the exception of the findings below. Assessment/Plan: DDx. ISK vs. AK R/O SCCis - 4mm pink scaly papule on the left nasal sidewall (Figure 1). - Recommended a skin biopsy to confirm/clarify the nature of the skin lesion. After discussion of potential risks (scarring, bleeding, infection) and recurrence, patient agreed to proceed. - Patient denies known allergies to lidocaine and epinephrine. Procedure: Skin shave biopsy Location: Left nasal sidewall Time of procedure: 2:29 PM Discussed indications for procedure and expectations including risks and benefits. Verbal consent obtained. Time out performed. Skin prepped with alcohol. Local anesthesia with 1% xylocaine, 1/100,000 epinephrine. A sample of the lesion was removed by shave technique to the level of the dermis and s ubmitted to Pathology. Hemostasis obtained (AlCl). There were no complications; patient tolerated the procedure well. Wound dressed. Post-procedure expectations, wound care and activity restrictions reviewed. - Follow-up based on pathology results. #. Actinic Keratosis - Ill-defined gritty papule on the upper back x1. - Explained premalignant potential of these lesions. - Discussed treatment with cryotherapy. Patient elects to proceed with cryotherapy today. - Instructed patient to return to clinic for re-evaluation if lesion(s) does not resolve as expected with this treatment. Procedure: Destruction of lesion(s) with cryotherapy (LN2). Location(s): As noted above. Number: 1 Discussed procedure and expectations, including risks and benefits. Verbal consent obtained. Treated with LN2. There were no complications; Patient tolerated the procedure well. Post-procedure expectations and wound care reviewed. #. Skin Tags - Sessile, flesh-colored papules on the bilateral axilla. - Discussed benign nature of lesions and provided reassurance. No treatment necessary at this time. #. Nevi -scattered brown macules on the back, chest, and face w/o concerning findings on dermoscopy -pt reassured -advised the pt to monitor nevi monthly and if they are growing, changing color, or new lesions appear pt should call back to be seen before their next FBSE Figure 1 Photo(s) taken and charted with patient's verbal consent. Other: Reviewed and/or interpreted test results RTC: Pending pathology; 1 year FSE []Note routed to racing secretary [x]Recall placed in scheduling system []Appointment scheduled at checkout Scribe attestation: Artemio Taveras has performed the documentation for this encounter in the presence of and acting as a scribe for Fernando Corona MD. I performed the above scribed service and agree with the accuracy of the documentation in this encounter. Reviewed and signed by: Fernando Corona MD Dermatology [facility] * Fernando Corona MD - 08/10/2023 2:00 PM EST Biopsy consistent with Actinic Keratosis(AK) -a precancerous lesion that should be treated. - given location I recommend treatment with LN2 in office vs. 5FU cream BID for 3 weeks Seen and reviewed by: Fernando Corona MD Staff C T Tech Department of Dermatology documented in this encounter Plan of Treatment Not on file documented as of this encounter Procedures Procedure Name Priority Date/Time Associated Diagnosis Comments SPECIMEN TO PATHOLOGY Routine 08/10/2023 2:31 PM EST Neoplasm of unspecified behavior of bone, soft tissue, and skin SURGICAL PATHOLOGY REPORT Routine 08/10/2023 2:29 PM EST documented in this encounter Results * Specimen to Pathology (08/10/2023 2:31 PM EST) AP Specimen 08/10/2023 2:31 PM EST 08/10/2023 2:31 PM EST Narrative [facility] - 08/10/2023 2:31 PM EST Specimen requisition ordered. ??Separate Pathology report to follow Fernando Corona MD PATHOLOGY/CYTOLOGY O RDERABLES Performing Organization Address City/State/[facility] Co de Phone Number [facility] [place] [address] * Surgical Pathology Report (08/10/2023 2:29 PM EST) Final Diagnosis [id number] ? Location: [facility] The signing pathologist has (i) examined the relevant preparation(s) for the specimen(s) and (ii) rendered or confirmed the diagnosis(es). . ?Surgical Pathology DIAGNOSIS Left nasal sidewall, skin shave biopsy: - ??Actinic keratosis, present at the peripheral specimen edge Electronically signed by: ?Adrien RAMIREZ, Tomas Mcpherson Verified: ??08/16/2023 9:23 ?? Dermatopathologist Performed at: ??-[facility] Dept. of Pathology, [place] [address] Foundry Tender: Silviano Arias MD, FCAP, ??CLIA Certificate: [id number] SPECIMEN(S) SUBMITTED A - Left nasal sidewall, skin shave biopsy (1) CLINICAL INFORMATION 4 mm pink scaly papule. ??DDx: ISK versus AK rule out SCCIS SPECIMEN PROCESSING A - Labeled/Fixative: Patient demographics, formalin. Quantity/Size: ??Single, 0.5 x 0.4 x 0.2 cm. Tissue Description: Not oriented shave of a rubbery yellow-estevez papule. Sections/Processing: Inked, bisected and entirely submitted in 1 cassette labeled A1. ??shb 08/16/2023 9:23 AM EST [facility] SPECIMEN FROM SKIN / Unknown 08/10/2023 2:29 PM EST 08/10/2023 2:29 PM EST Fernando Corona MD PATHOLOGY/CYTOLOGY O JEWEL Performing Organization Address City/State/[facility] Co de Phone Number [facility] [address] [place] [address] documented in this encounter Visit Diagnoses Diagnosis Neoplasm of unspecified behavior of bone, soft tissue, and skin AK (actinic keratosis) Actinic keratosis Skin tags, multiple acquired Multiple nevi Benign neoplasm of skin, site unspecified documented in this encounter Care Teams Laborer Tan House Relationship Specialty Start Date End Date Britt Bravo PA [address] [address] PCP - General Family Medicine 11/18/22 documented as of this encounter
--- OUTSIDE RECORDS SUMMARY | 2024-05-09 15:35 | XMS_ITS | Encounter Summary ---
Author Organization [facility] [place] [address] Care Team Providers Care Linux Support Engineer Name Role Phone Britt Bravo Primary Care Provider Encounter Details Date Type Department Care Team (Latest Contact Info) Description 06/17/2023 Travel Social History Tobacco Use Types Packs/Day Years [...] on filedocumented in this encounter Care Teams Linux Support Engineer Relationship Specialty Start Date End Date Britt Bravo PA [address] [place] [address] PCP - General Family Medicine 11/18/22 documented as of this encounter
--- OUTSIDE RECORDS SUMMARY | 2024-05-09 15:35 | XMS_ITS | Encounter Summary ---
Author Organization [facility] [place] [address] Care Team Providers Care Supplier Quality Engineering Manager Name Role Phone Britt Bravo Primary Care Provider Encounter Details Date Type Department Care Team (Late st Contact Info) Description 01/19/2023 Notes Only [place] [id number] Kiley Mccall RN Social History Tobacco Use Types Packs/Day Years [...] of this encounter Progress Notes * Kiley Mccall RN - 01/19/2023 1:03 PM EDT TC from Dr. Pryor office Nereida is calling to state that Dr. Pryor first available appointment for a new patient is on 2022. Reviewed with Dr. franks and he stated that this should be ok as well. documented in this encounter Plan of Treatment Not on file documented as of this encounter Visit Diagnoses Not on filedocumented in this encounter Care Teams Supplier Quality Engineering Manager Relationship Specialty Start Date End Date Britt Bravo PA [address] [place] [id number] PCP - General Family Medicine 11/18/22 documented as of this encounter
--- OUTSIDE RECORDS SUMMARY | 2024-05-09 15:35 | XMS_ITS | Continuity of Care Document ---
Author Organization [facility] Ambulatory Clinics Address [address] [place] [address] Care Team Providers Care Cream Beater Name Role Phone MILIND GZUMAN PA-C Primary Care Physician [phone] Encounter [facility] NBR [id number] Date(s): 03/22/24 - 03/22/24 [facility] Ambulatory Clinics [address] [place] [address]- Encounter Diagnosis Sarcoidosis(Discharge Diagnosis) - 03/22/24 Allergic rhinitis(Discharge Diagnosis) - 03/22/24 GERD - Gastro-esophageal reflux disease(Discharge Diagnosis) - 03/22/24 Discharge Disposition: Home or Self Care Attending Physician: Sury Bee MD Referring Physician: MEGAN FLORIAN ([facility])MILIND Allergies, Adverse Reactions, Alerts Substance Reaction Severity Status Hayfever Unknown Active Assessment and Plan Future Appointments Future Scheduled Tests Radiology* CT Chest w/ Contrast 03/22/24 Functional Status 03/22/24 Other exposure to Infectious Disease Non e Medications !-Aspir 81 oral delayed release [...] supper, # 60 tab, 11 Refill(s), Pharmacy: [id number], 178, cm, 08/03/23 9:08:00 EST, Height, 81.65, [...] case 2auto-populated from documented surgical case 3back Vital Signs Most recent to oldest [Reference Range]: 1 Temperature Temporal Artery [36-38 Deg C ] 37.1 Deg C (03/22/24 12:10 PM) Apical Heart Rate [60-100 bpm] 89 bpm (03/22/24 12:10 PM) Blood Pressure [90-140/60-90 mmHg] 129/7 3mmHg (03/22/24 12:10 PM) Mean Arterial Pressure, Cuff [65-140 mmH g] 92 mmHg (03/22/24 12:10 PM) Weight 90.7 kg (03/22/24 12:10 PM) Weight Measured (lbs) 199.959 lb (03/22/24 12:10 PM) Weight Dosing 90.700 kg (03/22/24 12:10 PM) [place] Body Weight Calculated 73 kg (03/22/24 12:10 PM) Height 177.80 cm (03/22/24 12:10 PM) Height/Length Measured (inches) 70 inch (03/22/24 12:10 PM) BSA Measured 2.12 m2 (03/22/24 12:10 PM) Body Mass Index 28.69 kg/m2 (03/22/24 12:10 PM) Social History Social History Type Response Tobacco Former tobacco user Tobacco Use:. 1 ppd per day. 21 year(s). Sex Hospital Discharge Instructions Follow Up Care 03/20/2024 12:38:36 With:Sury Bee MD Address: [address] [place] [phone]- When:Within 6 Week(s) Patient Care team information Care Team Personnel Name: MEGAN FLORIAN ([facility])MILIND Position: No Access Member Role: Primary Care Physician Address: Address: [address] [place] [id number] Care Team Related Persons Name: ANKUSH SIDHU Address: Home
--- OUTSIDE RECORDS SUMMARY | 2024-05-09 15:35 | XMS_ITS | Encounter Summary ---
Author Organization [facility] [place] [address] Care Team Providers Care Livestock Laborer Name Role Phone Britt Bravo Primary Care Provider [phone] Reason for Visit * Reason Onset Date Comments Post Procedure Call 01/04/2023 Encounter Details Date Type Department Care Team (Late st Contact Info) Description 01/04/2023 Telephone [place] [address] Kiley Mccall RN Post Procedure Call Social History Tobacco Use Types Packs/Day Years [...] encounter Miscellaneous Notes * Telephone Encounter - Kiley Mccall RN - 01/05/2023 11:31 AM EDTSummary: post op call TC to Mr. Solomon Hx: s/p EBUS on 01/01/2023. Mr. Solomon is doing well after his procedure. He has experienced some upper chest soreness, but denies any coughing with production or blood tinged sputum. He is aware that once the results are completed, he will receive a phone call. He knows to call with any changes, questions or concerns. documented in this encounter Plan of Treatment Not on file documented as of this encounter Visit Diagnoses Not on filedocumented in this encounter Care Teams Livestock Laborer Relationship Specialty Start Date End Date Britt Bravo PA [address] [id number] PCP - General Family Medicine 11/18/22 documented as of this encounter
--- OUTSIDE RECORDS SUMMARY | 2024-05-09 15:35 | XMS_ITS | Continuity of Care Document ---
Author Organization [facility] Address [address] [place] [address] Care Team Providers Care Door Hanger Name Role Phone MEGAN FLORIAN, MILIND BURGESS Primary Care Physicia n Encounter [facility] NBR [id number] Date(s): 09/23/23 - 09/23/[address] [address]- Encounter Diagnosis Desouza's esophagus(Discharge Diagnosis) - 09/23/23 Hx of adenomatous colonic polyps(Discharge Diagnosis) - 09/23/23 Discharge Disposition: Home or Self Care Attending Physician: Angel Bermudez MD Admitting Physician: Angel Bermudez MD Referring Physician: Angel Bermudez MD Allergies, Adverse Reactions, Alerts Substance Reaction Severity Status Hayfever Unknown Active Assessment and Plan Future Appointments Functional Status 09/23/23 ADLs Independent 09/20/23 Living Situation Home independently Medications !-Aspir 81 oral delayed release tablet [...] supper, # 60 tab, 11 Refill(s), Pharmacy: [facility] #[id number], 178, cm, 08/03/23 9:08:00 EST, Height, 81.65, [...] Prediabetes Confirmed Active Pulmonary sarcoidosis Confirmed Active Thoracic spondylosis Confirmed Active TIA [...] 3 Temperature Temporal Artery [36-38 Deg C] 36.2 Deg C (09/23/23 11:41 AM) 36.0 Deg C (09/23/23 11:01 AM) 36.6 Deg C (09/23/23 9:59 AM) Temperature Temporal Artery (DegF) [97.3-100 Deg F] 97.16 Deg F *LOW* (09/23/23 11:41 AM) 96.8 Deg F *LOW* (09/23/23 11:01 AM) Peripheral Pulse Rate [60-100 bpm] 63 bpm (09/23/23 11:41 AM) 64 bpm (09/23/23 11:27 AM) 68 bpm (09/23/23 11:18 AM) Heart Rate Monitored [60-100 bpm] 66 bpm (09/23/23 11:41 AM) 64 bpm (09/23/23 11:27 AM) 69 bpm (09/23/23 11:18 AM) Respiratory Rate [12-24 br/min] 16 br/min (09/23/23 11:01 AM) 18 br/min (09/23/23 9:59 AM) Blood Pressure [90-140/60-90 mmHg] 149/81mmHg *HI* (09/23/23 11:41 AM) 149/81mmHg *HI* (09/23/23 11:27 AM) 105/78mmHg (09/23/23 11:18 AM) Mean Arterial Pressure, Cuff [70-110 mmHg] 104 mmHg (09/23/23 11:41 AM) 104 mmHg (09/23/23 11:27 AM) 87 mmHg (09/23/23 11:18 AM) Mean Arterial Pressure Cuff 98 mmHg (09/23/23 11:41 AM) 88 mmHg (09/23/23 11:18 AM) Blood Pressure Location Left arm (09/23/23 11:01 AM) Weight 83.01 kg (09/23/23 9:59 AM) 83.01 kg (09/20/23 2:00 PM) Weight Dosing 83.010 kg (09/20/23 2:00 PM) Height 177.8 cm (09/23/23 9:59 AM) 177.80 cm (09/20/23 2:00 PM) Body Mass Index 26.26 kg/m2 (09/23/23 9:59 AM) Social History Social History Type Response Tobacco Former tobacco user Tobacco Use:. 1 ppd per day. 21 year(s). Sex Hospital Discharge Instructions Patient Education 09/23/2023 10:03:55 Diverticulosis Diverticulosis Diverticulosis is a condition that develops when small pouches (diverticula) form in the wall of the large intestine (colon). The colon is where water is absorbed and stool (feces) is formed. The pouches form when the inside layer of the colon pushes through weak spots in the outer layers of the colon. You may have a few pouches or many of them. The pouches usually do not cause problems unless they become inflamed or infected. When this happens, the condition is called diverticulitis. What are the causes? The cause of this condition is not known. What increases the risk? The following factors may make you more likely to develop this condition: ??? Being older than age 60. Your risk for this condition increases with age. Diverticulosis is rare among people younger than age 30. By age 80, many people have it. ??? Eating a low-fiber diet. ??? Having frequent constipation. ??? Being overweight. ??? Not getting enough exercise. ??? Smoking. ??? Taking offx-ksr-sukojgv pain medicines, like aspirin and ibuprofen. ??? Having a family history of diverticulosis. What are the signs or symptoms? In most people, there are no symptoms of this condition. If you do have symptoms, they may include: ??? Bloating. ??? Cramps in the abdomen. ??? Constipation or diarrhea. ??? Pain in the lower left side of the abdomen. How is this diagnosed? Because diverticulosis usually has no symptoms, it is most often diagnosed during an exam for othercolon problems. The condition may be diagnosed by: ??? Using a flexible scope to examine the colon (colonoscopy). ??? Taking an X-ray of the colon after dye has been put into the colon (barium enema). ??? Having a CT scan. How is this treated? You may not need treatment for this condition. Your health care provider may recommend treatment toprevent problems. You may need treatment if you have symptoms or if you previously had diverticulitis. Treatment may include: ??? Eating a high-fiber diet. ??? Taking a fiber supplement. ??? Taking a live bacteria supplement (probiotic). ??? Taking medicine to relax your colon. Follow these instructions at home: Medicines ??? Take veav-rpp-exwqarm and prescription medicines only as told by your health care provider. ??? If told by your health care provider, take a fiber supplement or probiotic. Constipation prevention Your condition may cause constipation. To prevent or treat constipation, you may need to: ??? Drink enough fluid to keep your urine pale yellow. ??? Take clmi-jno-grhrahe or prescription medicines. ??? Eat foods that are high in fiber, such as beans, whole grains, and fresh fruits and vegetables. ??? Limit foods that are high in fat and processed sugars, such as fried or sweet foods. General instructions ??? Try not to strain when you have a bowel movement. ??? Keep all follow-up visits as told by your health care provider. This is important. Contact a health care provider if you: ??? Have pain in your abdomen. ??? Have bloating. ??? Have cramps. ??? Have not had a bowel movement in 3 days. Get help right away if: ??? Your pain gets worse. ??? Your bloating becomes very bad. ??? You have a fever or chills, and your symptoms suddenly get worse. ??? You vomit. ??? You have bowel movements that are bloody or black. ??? You have bleeding from your rectum. Summary ??? Diverticulosis is a condition that develops when small pouches (diverticula) form in the wall of the large intestine (colon). ??? You may have a few pouches or many of them. ??? This condition is most often diagnosed during an exam for other colon problems. ??? Treatment may include increasing the fiber in your diet, taking supplements, or taking medicines. This information is not intended to replace advice given to you by your health care provider. Make sure you discuss any questions you have with your health care provider. Document Revised: 03/21/2020 Document Reviewed: 03/21/[address] [facility] Patient Education ?? 2022 [employer] 09/23/2023 10:03:53 Colon Polyps Colon Polyps Colon polyps are tissue growths inside the colon, which is part of the large intestine. They are one of the types of polyps that can grow in the body. A polyp may be a round bump or a mushroom-shapedgrowth. You could have one polyp or more than one. Most colon polyps are noncancerous (benign). However, some colon polyps can become cancerous over time. Finding and removing the polyps early can help prevent this. What are the causes? The exact cause of colon polyps is not known. What increases the risk? The following factors may make you more likely to develop this condition: ??? Having a family history of colorectal cancer or colon polyps. ??? Being older than 45 years of age. ??? Being younger than 45 years of age and having a significant family history of colorectal canceror colon polyps or a genetic condition that puts you at higher risk of getting colon polyps. ??? Having inflammatory bowel disease, such as ulcerative colitis or Crohn's disease. ??? Having certain conditions passed from parent to child (hereditary conditions), such as: ??? Familial adenomatous polyposis (FAP). ??? Rodriguez syndrome. ??? Turcot syndrome. ??? Peutz???Jeghers syndrome. ??? MUTYH-associated polyposis (MAP). ??? Being overweight. ??? Certain lifestyle factors. These include smoking cigarettes, drinking too much alcohol, not getting enough exercise, and eating a diet that is high in fat and red meat and low in fiber. ??? Having had childhood cancer that was treated with radiation of the abdomen. What are the signs or symptoms? Many times, there are no symptoms. If you have symptoms, they may include: ??? Blood coming from the rectum during a bowel movement. ??? Blood in the stool (feces). The blood may be bright red or very dark in color. ??? Pain in the abdomen. ??? A change in bowel habits, such as constipation or diarrhea. How is this diagnosed? This condition is diagnosed with a colonoscopy. This is a procedure in which a lighted, flexible scope is inserted into the opening between the buttocks (anus) and then passed into the colon to examine the area. Polyps are sometimes found when a colonoscopy is done as part of routine cancer screening tests. How is this treated? This condition is treated by removing any polyps that are found. Most polyps can be removed during a colonoscopy. Those polyps will then be tested for cancer. Additional treatment may be needed depending on the results of testing. Follow these instructions at home: Eating and drinking ??? Eat foods that are high in fiber, such as fruits, vegetables, and whole grains. ??? Eat foods that are high in calcium and vitamin D, such as milk, cheese, yogurt, eggs, liver, fish, and broccoli. ??? Limit foods that are high in fat, such as fried foods and desserts. ??? Limit the amount of red meat, precooked or cured meat, or other processed meat that you eat, such as hot dogs, sausages, nickerson, or meat loaves. ??? Limit sugary drinks. Lifestyle ??? Maintain a healthy weight, or lose weight if recommended by your health care provider. ??? Exercise every day or as told by your health care provider. ??? Do not use any products that contain nicotine or tobacco, such as cigarettes, e-cigarettes, andchewing tobacco. If you need help quitting, ask your health care provider. ??? Do not drink alcohol if: ??? Your health care provider tells you not to drink. ??? You are , may be , or are planning to become . ??? If you drink alcohol: ??? Limit how much you use to: ??? 0???1 drink a day for women. ??? 0???2 drinks a day for men. ??? Know how much alcohol is in your drink. In the [place] one drink equals one 12 oz bottle of beer (355 mL), one 5 oz glass of wine (148 mL), or one 1?? oz glass of hard liquor (44 mL). General instructions ??? Take djpp-zrc-tbpdyze and prescription medicines only as told by your health care provider. ??? Keep all follow-up visits. This is important. This includes having regularly scheduled colonoscopies. Talk to your health care provider about when you need a colonoscopy. Contact a health care provider if: ??? You have new or worsening bleeding during a bowel movement. ??? You have new or increased blood in your stool. ??? You have a change in bowel habits. ??? You lose weight for no known reason. Summary ??? Colon polyps are tissue growths inside the colon, which is part of the large intestine. They are one type of polyp that can grow in the body. ??? Most colon polyps are noncancerous (benign), but some can become cancerous over time. ??? This condition is diagnosed with a colonoscopy. ??? This condition is treated by removing any polyps that are found. Most polyps can be removed during a colonoscopy. This information is not intended to replace advice given to you by your health care provider. Make sure you discuss any questions you have with your health care provider. Document Revised: 12/11/2020 Document Reviewed: 12/11/[address] [facility] Patient Education ?? 2022 [employer] 09/23/2023 10:03:52 Desouza's Esophagus Desouza's Esophagus Desouza's esophagus occurs [...] Tomatoes and foods made with tomatoes. ??? Sawmills or spicy foods. ??? Chocolate and peppermint. ??? Do not drink alcohol. General instructions ??? Take bhtx-jwi-vzbadaa and prescription medicines only as told by [...] right away. Call your local emergency services (611 in the [place] Do not drive yourself [...] provider. Document Revised: 11/09/2020 Document Reviewed: 11/09/2020 [employer] Patient Education ?? 2022 [employer] Discharge instructions * Monik Rivera: PERFORM Event Display: Discharge Instructions Authored Date: [id number] INDRA SIDHU :1955 Age:68 years Sex:Male Visit Date:09/23/2023 Primary Care Physician: MEGAN FLORIAN, [facility] Discharge Instructions We would like to thank you for allowing us to assist you with your healthcare needs. The following includes patient education materials and information regarding your injury/illness. Your Next Steps Discharge Orders Discharge Patient Instructions, You may experience some gas cramps and abdominal bloating Discharge Patient Instructions, Cramping and abdominal bloating should subside in 1 hour or so Discharge Patient Instructions, Passing gas rectally and belching is normal Discharge Patient Instructions, A light first meal may feel better in your stomach Discharge Patient Instructions, You may resume your normal activity in 24 hours Discharge Patient Instructions, It is important that a responsible adult drive you home today Discharge Patient Instructions, Do not sign any contracts, make any major decisions, or drive or operate machinery for 24 hours Discharge Patient Instructions, You should not be responsible for the care of others Discharge Patient Instructions, Avoid alcohol, tranquilizers, sleeping pills, or cold medicines for24 hours Discharge Patient Instructions, Call or come to emergency department if having unusual pain or severe abdominal pain Discharge Patient Instructions, Call or come to emergency department if vomiting blood or having black bowel movements, rectal bleeding or passing blood clots Discharge Patient Instructions, Call or come to emergency department for dizziness Discharge Patient Instructions, Call or come to emergency department chest pain, or shortness of breath Discharge Patient Instructions, Call or come to emergency department for fever greater than 100 ??F Discharge Patient Instructions, Call with any additional questions or concerns Scheduled Future Appointments 2023 11:00 AM EST ?? With: Lala Kern APRN Where: [facility] Gastroenterology Status: Confirmed Medications What How Much When Why Instructions Next Dose Unchanged ascorbic acid (Vitamin [...] mouth) Every day Duration: 7 Days Unchanged omega-3 polyunsaturated fatty acids (Fish Oil 1200 mg oral capsule) 1 Capsules Oral (given by mouth) Every day Unchanged pantoprazole (pantoprazole 40 mg oral delayed release tablet) 1 tab Oral (given by mouth) 2 times a day Hx of adenomatous colonic polyps Desouza's esophagus History of diverticulitis GERD - Gastro-esophageal reflux disease Duration: 30 Days Take 1 tablet 30 minutes before breakfast, second tablet 30 minutes before supper ?? Unchanged pantoprazole (Protonix 40 mg oral delayed release tablet) 1 tab Oral (given by mouth) Every day Your Summary Your Care Team Admitting Physician - Angel Bermudez MD Attending Physician - Angel Bermudez MD Primary Care Physician - MILIND GUZMAN PA-C Referring Physician - Angel Bermudez MD Your Diagnosis Desouza's esophagus Hx of adenomatous colonic polyps Problems Ongoing - Any problem that you are currently receiving treatment for. Allergic rhinitis Desouza's esophagus BPPV - Benign paroxysmal positional vertigo Degeneration of lumbar intervertebral disc Diverticulitis Femoral hernia GERD - Gastro-esophageal reflux disease History of alcohol abuse History of diverticulitis Hx of adenomatous colonic polyps Macular degeneration of both eyes Malignant melanoma Neck pain Prediabetes Pulmonary sarcoidosis Thoracic spondylosis TIA Procedures Performed ???Esophagogastroduodenoscopy and Colonoscopy with Biopsy (09/23/2023) Discharge Vitals Temperature??(Temporal Artery) 96.8 ??F (36.0 ??C) Heart Rate??(Peripheral) 68 Heart Rate??(Monitored) 69 Respiratory Rate?? 16 Blood Pressure?? 105/78?? Height?? 70.00 in (177.8 cm) Weight?? 183.04 lb (83.01 kg) BMI?? 26.26 Allergies Hayfever Education Materials Diverticulosis Diverticulosis is a condition that develops when small pouches (diverticula) form in the wall of the large intestine (colon). The colon is where water is absorbed and stool (feces) is formed. The pouches form when the inside layer of the colon pushes through weak spots in the outer layers of the colon. You may have a few pouches or many of them. The pouches usually do not cause problems unless they become inflamed or infected. When this happens, the condition is called diverticulitis. What are the causes? The cause of this condition is not known. What increases the risk? The following factors may make you more likely to develop this condition: ? Being older than age 60. Your risk for this condition increases with age. Diverticulosis is rare among people younger than age 30. By age 80, many people have it. ? Eating a low-fiber diet. ? Having frequent constipation. ? Being overweight. ? Not getting enough exercise. ? Smoking. ? Taking rttd-kao-zfzyshd pain medicines, like aspirin and ibuprofen. ? Having a family history of diverticulosis. What are the signs or symptoms? In most people, there are no symptoms of this condition. If you do have symptoms, they may include: ? Bloating. ? Cramps in the abdomen. ? Constipation or diarrhea. ? Pain in the lower left side of the abdomen. How is this diagnosed? Because diverticulosis usually has no symptoms, it is most often diagnosed during an exam for othercolon problems. The condition may be diagnosed by: ? Using a flexible scope to examine the colon (colonoscopy). ? Taking an X-ray of the colon after dye has been put into the colon (barium enema). ? Having a CT scan. How is this treated? You may not need treatment for this condition. Your health care provider may recommend treatment toprevent problems. You may need treatment if you have symptoms or if you previously had diverticulitis. Treatment may include: ? Eating a high-fiber diet. ? Taking a fiber supplement. ? Taking a live bacteria supplement (probiotic). ? Taking medicine to relax your colon. Follow these instructions at home: Medicines ? Take gjxe-bot-xduaukz and prescription medicines only as told by your health care provider. ? If told by your health care provider, take a fiber supplement or probiotic. Constipation prevention Your condition may cause constipation. To prevent or treat constipation, you may need to: ? Drink enough fluid to keep your urine pale yellow. ? Take kiqd-ldw-blsybfs or prescription medicines. ? Eat foods that are high in fiber, such as beans, whole grains, and fresh fruits and vegetables. ? Limit foods that are high in fat and processed sugars, such as fried or sweet foods. General instructions ? Try not to strain when you have a bowel movement. ? Keep all follow-up visits as told by your health care provider. This is important. Contact a health care provider if you: ? Have pain in your abdomen. ? Have bloating. ? Have cramps. ? Have not had a bowel movement in 3 days. Get help right away if: ? Your pain gets worse. ? Your bloating becomes very bad. ? You have a fever or chills, and your symptoms suddenly get worse. ? You vomit. ? You have bowel movements that are bloody or black. ? You have bleeding from your rectum. Summary ? Diverticulosis is a condition that develops when small pouches (diverticula) form in the wall of the large intestine (colon). ? You may have a few pouches or many of them. ? This condition is most often diagnosed during an exam for other colon problems. ? Treatment may include increasing the fiber in your diet, taking supplements, or taking medicines. This information is not intended to replace advice given to you by your health care provider. Make sure you discuss any questions you have with your health care provider. Document Revised: 03/21/2020 Document Reviewed: 03/21/2020 [employer] Patient Education ?? 2022 [employer] Colon Polyps Colon polyps are tissue growths inside the colon, which is part of the large intestine. They are one of the types of polyps that can grow in the body. A polyp may be a round bump or a mushroom-shapedgrowth. You could have one polyp or more than one. Most colon polyps are noncancerous (benign). However, some colon polyps can become cancerous over time. Finding and removing the polyps early can help prevent this. What are the causes? The exact cause of colon polyps is not known. What increases the risk? The following factors may make you more likely to develop this condition: ? Having a family history of colorectal cancer or colon polyps. ? Being older than 45 years of age. ? Being younger than 45 years of age and having a significant family history of colorectal cancer or colon polyps or a genetic condition that puts you at higher risk of getting colon polyps. ? Having inflammatory bowel disease, such as ulcerative colitis or Crohn's disease. ? Having certain conditions passed from parent to child (hereditary conditions), such as: ? Familial adenomatous polyposis (FAP). ? Rodriguez syndrome. ? Turcot syndrome. ? Peutz???Jeghers syndrome. ? MUTYH-associated polyposis (MAP). ? Being overweight. ? Certain lifestyle factors. These include smoking cigarettes, drinking too much alcohol, not gettingenough exercise, and eating a diet that is high in fat and red meat and low in fiber. ? Having had childhood cancer that was treated with radiation of the abdomen. What are the signs or symptoms? Many times, there are no symptoms. If you have symptoms, they may include: ? Blood coming from the rectum during a bowel movement. ? Blood in the stool (feces). The blood may be bright red or very dark in color. ? Pain in the abdomen. ? A change in bowel habits, such as constipation or diarrhea. How is this diagnosed? This condition is diagnosed with a colonoscopy. This is a procedure in which a lighted, flexible scope is inserted into the opening between the buttocks (anus) and then passed into the colon to examine the area. Polyps are sometimes found when a colonoscopy is done as part of routine cancer screening tests. How is this treated? This condition is treated by removing any polyps that are found. Most polyps can be removed during a colonoscopy. Those polyps will then be tested for cancer. Additional treatment may be needed depending on the results of testing. Follow these instructions at home: Eating and drinking ? Eat foods that are high in fiber, such as fruits, vegetables, and whole grains. ? Eat foods that are high in calcium and vitamin D, such as milk, cheese, yogurt, eggs, liver, fish, and broccoli. ? Limit foods that are high in fat, such as fried foods and desserts. ? Limit the amount of red meat, precooked or cured meat, or other processed meat that you eat, such as hot dogs, sausages, nickerson, or meat loaves. ? Limit sugary drinks. Lifestyle ? Maintain a healthy weight, or lose weight if recommended by your health care provider. ? Exercise every day or as told by your health care provider. ? Do not use any products that contain nicotine or tobacco, such as cigarettes, e- cigarettes, and chewing tobacco. If you need help quitting, ask your health care provider. ? Do not drink alcohol if: ? Your health care provider tells you not to drink. ? You are , may be , or are planning to become . ? If you drink alcohol: ? Limit how much you use to: ? 0???1 drink a day for women. ? 0???2 drinks a day for men. ? Know how much alcohol is in your drink. In the [place] one drink equals one 12 oz bottle of beer (355mL), one 5 oz glass of wine (148 mL), or one 1?? oz glass of hard liquor (44 mL). General instructions ? Take vwxy-bxy-aambvso and prescription medicines only as told by your health care provider. ? Keep all follow-up visits. This is important. This includes having regularly scheduled colonoscopies. Talk to your health care provider about when you need a colonoscopy. Contact a health care provider if: ? You have new or worsening bleeding during a bowel movement. ? You have new or increased blood in your stool. ? You have a change in bowel habits. ? You lose weight for no known reason. Summary ? Colon polyps are tissue growths inside the colon, which is part of the large intestine. They are one type of polyp that can grow in the body. ? Most colon polyps are noncancerous (benign), but some can become cancerous over time. ? This condition is diagnosed with a colonoscopy. ? This condition is treated by removing any polyps that are found. Most polyps can be removed during a colonoscopy. This information is not intended to replace advice given to you by your health care provider. Make sure you discuss any questions you have with your health care provider. Document Revised: 12/11/2020 Document Reviewed: 12/11/[address] [employer] Patient Education ?? 2022 [employer] Desouza's Esophagus Desouza's esophagus occurs when the [...] Tomatoes and foods made with tomatoes. ? Sawmills or spicy foods. ? Chocolate and peppermint. ? Do not drink alcohol. General instructions ? Take itgk-arh-kojvyyd and prescription medicines only as told by [...] provider. Document Revised: 11/09/2020 Document Reviewed: 11/09/[address] [facility] Patient Education ?? 2022 [employer] Patient/Orthotics Technician Signature Patient Name:INDRA SIDHU I have received this information and my questions have been answered. Patient/Orthotics Technician Name: Patient/Orthotics Technician Signature: Relationship to Patient: Witness Name/Signature: Date: Electronically Signed on: 09/23/2023 11:21 ESTSigned by:PATTIE History and physical note * Event Display: History and Physical Update * Angel Bermudez MD: PERFORM Event Display: History and Physical Authored Date: [id number] INDRA SIDHU :1955 Age:68 years Sex:Male Visit Date:09/23/2023 Primary Care Physician: MILIND GUZMAN PA-C History of Present Illness 68-year-old male with history of Desouza's esophagus, indefinite for dysplasia,??and a history of adenomatous colon polyps. Physical Exam Well-developed well-nourished white male no acute distress Lungs: Clear to auscultation bilaterally Heart: Regular rhythm S1-S2 Abdomen: Soft nontender Assessment/Plan 1.??Desouza's esophagus??K22.70 EGD and colonoscopy today. 2.??Hx of adenomatous colonic polyps??Z86.010 Orders: sodium chloride 0.9% flush, 10 mL, IV Flush, Injection, every 8 hr, First Dose: 09/23/23 8:00:00 EST, Routine sodium chloride 0.9% flush, 10 mL, IV Flush, Injection, As Directed, First Dose: 09/23/23 7:15:00 EST, Physician Stop, Routine Sodium Chloride 0.9% 1,000 mL, Total Volume (mL): 1,000, 1,000 mL, Soln-IV, IV, 50 mL/hr, Start Date: 09/23/23 7:15:00 EST, 83.01 kg, Populate Charting Weight From Order, 2.02, m2 Blood Glucose Monitoring POC RE, 09/23/23 7:15:00 EST, Stop date 09/23/23 7:15:00 EST Diet Order, 09/23/23 7:16:00 EST, Regular Discharge Patient, 09/23/23 7:16:00 EST, Discharge when stable per SDS criteria Discharge Patient, 09/23/23 7:16:00 EST, Discharge when stable per anesthesia criteria Discharge Patient Instructions, Call or come to emergency department if having unusual pain or severe abdominal pain Discharge Patient Instructions, Call or come to emergency department if vomiting blood or having black bowel movements, rectal bleeding or passing blood clots Discharge Patient Instructions, You may experience some gas cramps and abdominal bloating Discharge Patient Instructions, Call or come to emergency department for dizziness Discharge Patient Instructions, Cramping and abdominal bloating should subside in 1 hour or so Discharge Patient Instructions, Call or come to emergency department chest pain, or shortness of breath Discharge Patient Instructions, Passing gas rectally and belching is normal Discharge Patient Instructions, Call or come to emergency department for fever greater than 100 ??F Discharge Patient Instructions, A light first meal may feel better in your stomach Discharge Patient Instructions, Call with any additional questions or concerns Discharge Patient Instructions, You may resume your normal activity in 24 hours Discharge Patient Instructions, It is important that a responsible adult drive you home today Discharge Patient Instructions, Do not sign any contracts, make any major decisions, or drive or operate machinery for 24 hours Discharge Patient Instructions, You should not be responsible for the care of others Discharge Patient Instructions, Avoid alcohol, tranquilizers, sleeping pills, or cold medicines for24 hours Obtain consent, 09/23/23 7:15:00 EST, Constant Order, 09/23/23 7:15:00 EST Peripheral IV Insertion, 09/23/23 7:15:00 EST Saline Lock Convert From IV, 09/23/23 7:15:00 EST, Stop date 09/23/23 7:15:00 EST Vital Signs, 09/23/23 7:15:00 EST, Stop date 09/23/23 7:15:00 EST, Routine Vital Signs, 09/23/23 7:16:00 EST, Once, Stop date 09/23/23 7:16:00 EST Vital Signs, 09/23/23 7:16:00 EST, Stop date 09/23/23 7:16:00 EST, As needed Problem List/Past Medical History Ongoing Allergic rhinitis Desouza's esophagus BPPV - Benign paroxysmal positional vertigo Degeneration of lumbar intervertebral disc Diverticulitis Femoral hernia GERD - Gastro-esophageal reflux disease History of alcohol abuse History of diverticulitis Hx of adenomatous colonic polyps Macular degeneration of both eyes Malignant melanoma Neck pain Prediabetes Pulmonary sarcoidosis Thoracic spondylosis TIA Historical No qualifying data Procedure/Surgical History ???Esophagogastroduodenoscopy Biopsy (09/23/2022)???Esophagogastroduodenoscopy, flexible, transoral; diagnostic, including collection of specimen(s) by brushing or washing, when performed (separate procedure) (09/23/2022)???Colonoscopy???EGD - Esophagogastroduodenoscopy???Excision of melanoma???Laparoscopic cholecystectomy???Primary repair of umbilical hernia Medications Inpatient Sodium Chloride 0.9% 1,000 mL, 1000 mL, IV sodium chloride 0.9% flush, 10 mL, IV Flush, every 8 hr sodium chloride 0.9% flush, 10 mL, IV Flush, As Directed Home !-Aspir 81 oral delayed release tablet, 81 mg= 1 tab, Oral, Daily calcium (as carbonate)-vitamin D 500 mg-400 intl units oral tablet, 1 tab, Oral, Daily Fish Oil 1200 mg oral capsule, 1200 mg= 1 cap, Oral, Daily glucosamine 500 mg oral capsule, 500 mg= 1 cap, Oral, Daily magnesium gluconate 500 mg oral tablet, 500 mg= 1 tab, Oral, Daily pantoprazole 40 mg oral delayed release tablet, 40 mg= 1 tab, Oral, BID, 11 refills Protonix 40 mg oral delayed release tablet, 40 mg= 1 tab, Oral, Daily Vitamin C 500 mg oral tablet, 500 mg= 1 tab, Oral, Daily Vitamin D3 1000 intl units oral capsule, 25 mcg= 1 cap, Oral, Daily Allergies Hayfever Social History Alcohol Past Electronic Cigarette/Vaping Electronic [...] Unknown. Cause of : Electronically Signed on 09/23/23 10:01 AM Angel Bermudez MD Patient Care team information Care Team Personnel Name: MEGAN FLORIAN, MILIND BURGESS Position: No Access Member Role: Primary Care Physician Address: Address: [address] [place] [id number] Care Team Related Persons Name: ANKUSH SIDHU
--- OUTSIDE RECORDS SUMMARY | 2024-05-09 15:35 | XMS_ITS | Encounter Summary ---
Author Organization [facility] Address [facility] [place] [address] Care Team Providers Care Museum Preparator Name Role Phone Britt Bravo Primary Care Provider Encounter Details Date Type Department Care Team (Late st Contact Info) Description 01/01/2023 12:37 PM EDT - 01/01/2023 2:57 PM EDT [place] [id number] Cameron Decker MD [facility] [place] [address] BRONCH, W ENDOBRONCHIAL ULTRASOUND (EBUS) GUIDED SAMPLING, 3+ NODES (WRVU 4.96) Social History Tobacco Use Types Packs/Day Years [...] Sign Reading Time Taken Comments Blood Pressure 113/72 01/01/2023 2:45 PM EDT Pulse 79 01/01/2023 12:06 PM EDT Temperature 36 ??C (96.8 ??F) 01/01/2023 2:45 PM EDT Respiratory Rate 18 01/01/2023 2:45 PM EDT Oxygen Saturation 98% 01/01/2023 2:45 PM EDT Inhaled Oxygen Concentration - - Weight 91.1 kg (200 lb 12.8 oz) 023 12:06 PM EDT Height - - Body Mass Index 28.81 12/29/2022 11:07 AM EDT documented in this encounter Discharge Instructions * Patient Instructions* Pat Rodríguez PA - 01/01/2023 2:59 PM EDT Today you had a Endobronchial Ultrasound with lymph node biopsy. You may cough up a small amount of blood after the procedure. This is normal. If the amount of blood being coughed up is bright red, clotting, or is increasing in amount (more than about 1 tablespoon), please call the clinic or go directly to the nearest emergency department. Call if you have difficulty breathing, shortness of breath, chest pain, a fever of greater than 101degrees, shaking chills, or if you have questions. During normal business hours, Wednesday- Wednesday 8:00 a.m.-5:00 p.m., please call [phone] to speak to a nurse in the Thoracic Clinic. For emergencies after hours, on weekends, or on holidays, please call [phone] and ask to speakto the Thoracic Surgeon bondactor machine operator. Diet: You should follow a regular diet as tolerated. Start slowly with liquids then work your way back up to normal foods. Smoking: If you are a smoker, please avoid smoking. If you are a smoker who needs help quitting, please call the thoracic surgery clinic at [phone]. Pain: You may have a sore throat after this procedure. Pain after this procedure is normal. The goal is for you to be able to tolerate pain so you can complete your daily activities. You may take over the counter pain medication such as acetaminophen or ibuprofen. If you are not having good pain control, please call and speak to the nurse in the Thoracic Clinic or the bondactor machine operator Attending Physician after hours. Follow up appointments: The thoracic surgery clinic will schedule your follow up and/or surgery andwill call you for confirmation. Please call the thoracic surgery clinic at [phone] if you needto reschedule your appointment. You will also get an appointment/surgery confirmation in the mail. Future Appointments and Orders Future Appointments and Orders Future Appointments Provider Department Dept Phone 01/12/2023 2:45 PM Romain Vang MD [place] [facility] [place] at: [facility] [phone] 11/16/2023 1:45 PM Parveen Flores MD Dermatology at [place] Arrive at: [facility] [address] [phone] If you have any questions or concerns during normal business hours, Wednesday- Wednesday 8:00 a.m.-5:00 p.m., please call [phone] to speak to a nurse in the Thoracic Surgery Clinic. documented in this encounter Medications at Time of Discharge Medication Sig Dispensed Refills Start Date End Date cholecalciferol, Vitamin D3, 25 mcg (1,000 unit) Capsule Take 1,000 Units by mouth daily. ascorbic acid, Vitamin C, (Vitamin C) 500 mg tablet Take 500 mg by mouth daily. JPKHSDG-SMBCNDLQM-KYHD ORAL Take 1 tablet by mouth daily. glucosamine/msm/chondrt/C/ hyal (RASCIYOXMHD-YIAEVGMFXUH-K SM ORAL) Take 1 tablet by mouth daily. aspirin EC 81 mg EC (DR) tablet Take 81 mg by mouth daily. pantoprazole (PROTONIX) 40 mg Tablet, Delayed Release (E.C.) Take 40 mg by mouth daily. 0 06/12/2018 documented as of this encounter H&P Notes * Teagan Lafleur PA - 01/01/2023 12:53 PM EDT Thoracic Surgery Preop NAME: Diallo Solomon DATE: 01/01/23 SURGEON: CAMERON DECKER PROCEDURE: bronchoscopy and EBUS with lymph node biopsies BRIEF HISTORY: Diallo Solomon is a 67 y.o. male with PMHx malignant melanoma in situ (0.3 mm) s/p excision referred for multiple enlarged right paratracheal, subcarinal, and bilateral hilar nodes onrecent CT Chest. Not on anticoagulation. Denies fevers/chills, N/V, abdominal pain, CP, or SOB. The patient reports no interval change. There has been no interval medical illness or hospitalizations. Questions have been addressed. Smoking HX: Social History Tobacco Use Smoking Status Former ??? Packs/day: 2.00 ??? Years: 21.00 ??? Pack years: 42.00 ??? Types: Cigarettes ??? Start date: 1971 ??? Quit date: 1992 ??? Years since quittin.3 Smokeless Tobacco Never PMH: Patient Active Problem List Diagnosis Date Noted ??? Gastroesophageal reflux 12/29/2022 ??? 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 Chronic back pain 12/29/2022 ??? Melanoma 12/29/2022 ??? Mediastinal adenopathy 12/29/2022 ??? Femoral hernia 11/19/2019 PSH: Past Surgical History: Procedure Laterality Date ??? CHOLECYSTECTOMY, LAPAROSCOPIC c/b deep space infection requiring IR drainage ??? INGUINAL HERNIA REPAIR Right ??? SKIN CANCER EXCISION Right lower right back MEDS: No current facility-administered medications on file prior to encounter. Current Outpatient Medications on File Prior to Encounter Medication Sig Dispense Refill ??? cholecalciferol, Vitamin D3, 25 mcg (1,000 unit) Capsule Take 1,000 Units by mouth daily. ??? ascorbic acid, Vitamin C, (Vitamin C) 500 mg tablet Take 500 mg by mouth daily. ??? SZGEUUX-ZDXQNZJHP-VOIQ ORAL Take 1 tablet by mouth daily. ??? glucosamine/msm/chondrt/C/hyal (ABAVOGLDAKG-XKSIIBQSNTM-QTI ORAL) Take 1 tablet by mouth daily. ??? aspirin EC 81 mg EC (DR) tablet Take 81 mg by mouth daily. ??? pantoprazole (PROTONIX) 40 mg Tablet, Delayed Release (E.C.) Take 40 mg by mouth daily. 0 ALL: Allergies Allergen Reactions ??? Cat Dander ? ? Dust & Pollen Filter Mask [Facial Mask] ??? Hay Fever And Allergy Relief [Chlorpheniramine-Phenylpropan] ??? Oats ??? [place] Physical Exam Patient Vitals for the past 24 hrs: Temp Pulse Resp BP SpO2 O2 Device 01/01/23 1206 36.4 ??C (97.5 ??F) 79 16 111/83 98 % RA Gen: NAD, pleasant, resting comfortably in hospital bed HEENT: normocephalic, atraumatic, EOMI, sclerae anicteric Card: RRR, no murmur appreciated Pulm: Lungs CTAB, no wheeze/ronchi/rales appreciated, non-labored breathing on RA Abd: soft, NT, ND Ext: warm, dry, no edema Neuro: A&Ox3, CN II-XII grossly intact, nonfocal, conversant LABS: Lab Results Component Value Date WBC 7.7 01/01/2023 RBC 5.20 01/01/2023 HGB 15.8 01/01/2023 HCT 46.6 01/01/2023 MCV 89.6 01/01/2023 MCH 30.4 01/01/2023 MCHC 33.9 01/01/2023 PLATELET 218 01/01/2023 RDWCV 12.6 01/01/2023 No results found for: NA, K, CL, CO2, BUN, CREATININE FILM ON PACS: CT Chest w contrast CONSENT: Yes/EMR - Yes Assessment/Plan: Diallo Solomon is a 67 y.o. male presenting today for planned bronchoscopy and EBUS with lymph node biopsies due to multiple enlarged right paratracheal, subcarinal, and bilateral hilar nodes on recent CT Chest. Plan for samples to be sent for cytology, flow cytometry, and culture.Consent signed and confirmed in chart. Questions addressed. Will proceed with planned surgery. KAMINI Harmon 01/01/2023 Thoracic Surgery Service Pager [phone] documented in this encounter Miscellaneous Notes * Brief Op Note - Pat Rodríguez PA - 01/01/2023 2:57 PM EDT Brief Operative Note Patient Name: Diallo Solomon : [id number] MR#: [id number] Case Date: 01/01/2023 Surgeon: Surgeon(s) and Role: * Cameron Decker MD - Primary * Pat Rodríguez PA - Physician Washing Machine Repairer Preoperative diagnosis: Mediastinal Adenopathy with h/o melenamoa Postoperative diagnosis: Mediastinal Adenopathy with h/o melenamoa Procedure(s) (LRB): BRONCH, W ENDOBRONCHIAL ULTRASOUND (EBUS) GUIDED SAMPLING, 3+ NODES (WRVU 4.96) (N/A) Anesthesia: General Findings: Diagnostic bronchoscopy with minimal, thin secretions and no evidence of mass or lesion. EBUS with biopsy of lymph node stations 7, 4L, 4R, and 11L performed. Bronchoscopy at the end of thecase showed no evidence of bleeding. Complications: None Estimated Blood Loss: 1 mL* No values recorded between 01/01/2023 1:40 PM and 01/01/2023 2:35 PM * Specimens removed during surgery: Order Name Source Comment Collection Info Order Time CYTOPATHOLOGY NON-GYNECOLOGICAL 01/01/2023 1:48 PM Pertinent clinical data and significant therapy: Mediastinal Adenopathy with h/o melenamoa Clinical impression: Mediastinal Adenopathy with h/o melenamoa Procedure Type: EBUS guided FNA Specimen Type: Lymph Node Description and source of specimen: Level 7 lymph node CYTOPATHOLOGY NON-GYNECOLOGICAL Level 4 R lymph node 01/01/2023 2:11 PM Pertinent clinical data and significant therapy: Mediastinal Adenopathy with h/o melenamoa Clinical impression: Mediastinal Adenopathy with h/o melenamoa Procedure Type: EBUS guided FNA Specimen Type: Lymph Node Description and source of specimen: Level 4 R lymph node CYTOPATHOLOGY NON-GYNECOLOGICAL 01/01/2023 2:22 PM Pertinent clinical data and significant therapy: Mediastinal Adenopathy with h/o melenamoa Clinical impression: Mediastinal Adenopathy with h/o melenamoa Procedure Type: EBUS guided FNA Specimen Type: Lymph Node Description and source of specimen: Level 11L lymph node CYTOPATHOLOGY NON-GYNECOLOGICAL 01/01/2023 2:30 PM Pertinent clinical data and significant therapy: Mediastinal Adenopathy with h/o melenamoa Clinical impression: Mediastinal Adenopathy with h/o melenamoa Procedure Type: EBUS guided FNA Specimen Type: Lymph Node Description and source of specimen: Level 4 L lymph node Fluids: Intraprocedure Crystalloid Total None PRBCs: none (See Anesthesia Record/Report for Other Blood Products) Urine Output: (no urine output recorded) Drains: None Disposition: awakened from anesthesia, extubated and taken to the recovery room in a stable condition, having suffered no apparent untoward event. Condition: doing well without problems (Please see the Surgical Encounter Summary for any Implant and Specimen details pertinent to this patient.) Surgical Infection Prevention Bundle Used? N/A KAMINI Pollard 01/01/23 * Op Note - Cameron Decker MD - 01/01/2023 1:40 PM EDT [facility] [place] Patient Name: Diallo Solomon : [id number] MR#: [id number] Case Date: 01/01/2023 Surgeon: Surgeon(s) and Role: * Cameron Decker MD - Primary * Pat Rodríguez PA - Physician Washing Machine Repairer Preoperative diagnosis: Mediastinal Adenopathy with h/o melenamoa Postoperative diagnosis: Mediastinal Adenopathy with h/o melenamoa Procedure(s) (LRB): BRONCH, W ENDOBRONCHIAL ULTRASOUND (EBUS) GUIDED SAMPLING, 3+ NODES (WRVU 4.96) (N/A) Findings: Confirmed lymph node sampling Anesthesia: General Estimated Blood Loss: 1 mL Specimens removed during surgery: Order Name Source Comment Collection Info Order Time CYTOPATHOLOGY NON-GYNECOLOGICAL 01/01/2023 1:48 PM Pertinent clinical data and significant therapy: Mediastinal Adenopathy with h/o melenamoa Clinical impression: Mediastinal Adenopathy with h/o melenamoa Procedure Type: EBUS guided FNA Specimen Type: Lymph Node Description and source of specimen: Level 7 lymph node CYTOPATHOLOGY NON-GYNECOLOGICAL Level 4 R lymph node 01/01/2023 2:11 PM Pertinent clinical data and significant therapy: Mediastinal Adenopathy with h/o melenamoa Clinical impression: Mediastinal Adenopathy with h/o melenamoa Procedure Type: EBUS guided FNA Specimen Type: Lymph Node Description and source of specimen: Level 4 R lymph node CYTOPATHOLOGY NON-GYNECOLOGICAL 01/01/2023 2:22 PM Pertinent clinical data and significant therapy: Mediastinal Adenopathy with h/o melenamoa Clinical impression: Mediastinal Adenopathy with h/o melenamoa Procedure Type: EBUS guided FNA Specimen Type: Lymph Node Description and source of specimen: Level 11L lymph node CYTOPATHOLOGY NON-GYNECOLOGICAL 01/01/2023 2:30 PM Pertinent clinical data and significant therapy: Mediastinal Adenopathy with h/o melenamoa Clinical impression: Mediastinal Adenopathy with h/o melenamoa Procedure Type: EBUS guided FNA Specimen Type: Lymph Node Description and source of specimen: Level 4 L lymph node Disposition: awakened from anesthesia, extubated and taken to the recovery room in a stable condition, having suffered no apparent untoward event. Condition: doing well without problems (Please see the Surgical Encounter Summary for any Implant and Specimen details pertinent to this patient.) HPI/Surgical Indications: 67-year-old man with a history of an early-stage melanoma with incidentally discovered mediastinal lymphadenopathy during a work- up for back pain Procedure Description: The patient was brought to the operating room and placed on the table in supine position. General anesthesia was induced and he was endotracheally intubated. A hard stop surgical timeout confirmed the patient's identity as well as the nature of the procedure to be performed. Diagnostic bronchoscopy was performed. The examined airway was anatomically normal, without endobronchial lesions or excessive secretions. I judged that it was safe and appropriate to proceed with theEBUS. The EBUS scope was placed and the airway was assessed. Echogenic material was identified in the subcarinal space and multiple needle passes were taken from both the right and left mainstem bronchi as level 7. The scope was then advanced along the right-hand side of the trachea and a right paratracheal lymph node was identified and sampled as level 4R. The scope was then advanced down the left mainstem bronchus and at the bifurcation of the upper and lower lobe bronchi a lymph node was identified and sampled as level 11 L. Finally the para-aortic space was identified and a small para-aortic node identified and sampled as level 4R. The conventional bronchoscope was then replaced and thebiopsy points were assessed for bleeding. None was seen. The bronchoscope was then withdrawn and the patient was allowed to emerge from anesthesia before being extubated in the operating room withoutincident and transported to the recovery area in stable condition. Counts were waived owing to the endobronchial nature of the case, and as the attending surgeon I was present at the bedside throughout. Due to the absence of a qualified general surgery resident to assist I was assisted by KAMINI Zafar. CAMERON DECKER MD documented in this encounter Plan of Treatment Not on file documented as of this encounter Procedures Procedure Name Priority Date/Time Associated Diagnosis Comments NON-DEFENCE FORCE SENIOR OFFICER FINAL REPORT Routine 01/01/2023 2:30 PM EDT CYTOPATHOLOGY NON-GYNECOLOGICAL Routine 01/01/2023 2:30 PM EDT NON-DEFENCE FORCE SENIOR OFFICER FINAL REPORT Routine 01/01/2023 2:22 PM EDT CYTOPATHOLOGY NON-GYNECOLOGICAL Routine 01/01/2023 2:22 PM EDT NON-DEFENCE FORCE SENIOR OFFICER FINAL REPORT Routine 01/01/2023 2:11 PM EDT CYTOPATHOLOGY NON-GYNECOLOGICAL Routine 01/01/2023 2:11 PM EDT IMMUNOPHENOTYPING FLOW CYTOMETRY (BLOOD) Routine 01/01/2023 1:50 PM EDT FLOW CYTOMETRY REPORT Routine 01/01/2023 1:50 PM EDT ANAEROBIC CULTURE Routine 01/01/2023 1:4 9 PM EDT HC GRAM STAIN FOR BACTERIA Routine 01/01/2023 1:49 PM EDT TISSUE CULTURE Routine 01/01/2023 1:49 PM EDT NON-DEFENCE FORCE SENIOR OFFICER FINAL REPORT Routine 01/01/2023 1:48 PM EDT CYTOPATHOLOGY NON-GYNECOLOGICAL Routine 01/01/2023 1:48 PM EDT [facility] Ebus Guided Sampl 3/> Node Station/Strux ([id number]) Yes 01/01/2023 1:24 PM EDT Malignant melanoma, unspecified site Mediastinal adenopathy EKG 12-LEAD Routine 01/01/2023 12:53 PM EDT Malignant melanoma, unspecified site Mediastinal adenopathy POCT GLUCOSE Routine 01/01/2023 12:40 PM EDT BRONCH, W ENDOBRONCHIAL ULTRASOUND (EBUS) GUIDED SAMPLING, 3+ NODES Routine 01/01/2023 11:51 AM EDT Malignant melanoma, unspecified site Mediastinal adenopathy HEMOGRAM Routine 01/01/2023 11:47 AM EDT Malignant melanoma, unspecified site Mediastinal adenopathy DIFFERENTIAL, AUTOMATED Routine 01/02/20 11:47 AM EDT Malignant melanoma, unspecified site Mediastinal adenopathy HC VENIPUNCTURE Routine 01/01/2023 11:47 AM EDT Malignant melanoma, unspecified site Mediastinal adenopathy documented in this encounter Results * Non-In Home Aide Final Report (01/01/2023 2:30 PM EDT) Diagnosis Discussion [id number] ? Location: [facility]; [facility]; The signing pathologist has (i) examined the relevant preparation(s) for the specimen(s) and (ii) rendered or confirmed the diagnosis(es). . ? Non-In Home Aide Final DIAGNOSIS Negative for Malignancy Electronically signed by: ?Gaston RAMIREZ, Marge Hunter Verified: ??01/06/2023 11:57 ??Pathologist Performed at: ??-[facility] [place]ology, [place] [address] Alumni Relations Manager: Silviano Arias MD, FCAP, ??CLIA Certificate: [id number] DISCUSSION Lymph node, level 4L (EBUS-guided FNA): Lymph node with non-necrotizing granulomas. No evidence of metastatic disease. Cell block was examined; multiple deeper levels were reviewed. CLINICAL INFORMATION Specimen Source : Lymph node, level 4L (EBUS-guided FNA, assisted) Pertinent Clinical Data and Significant Therapy: Mediastinal adenopathy with h/o melanoma Clinical Impression : Mediastinal adenopathy with h/o melanoma Pertinent Radiologic Findings ??: (not provided) Gross Description: Received ??in Formalin approximately 50 mL total volume of ?? clear, colorless fluid, with dark flecks. Total Preparation: Diff Quik 1; Pap Stain 1; Cell Block 1. 01/06/2023 11:57 AM EDT [facility] LYMPH NODE SPECIMEN / Unknown 01/01/2023 2:30 PM EDT 01/01/2023 2:30 PM EDT Cameron Decker MD PATHOLOGY/CYTOLO GY ORDERABLES Performing Organization Address [facility] Co de Phone Number [facility] [address] [place] [address] * Cytopathology Non-Gynecological (01/01/2023 2:30 PM EDT) AP Specimen 01/01/2023 2:30 PM EDT 01/01/2023 2:30 PM EDT Narrative [facility] - 01/01/2023 2:30 PM EDT Specimen requisition ordered. ??Separate Pathology report to follow Cameron Decker MD PATHOLOGY/CYTOLO GY ORDERABLES Performing Organization Address [facility] Co de Phone Number [facility] [place] [address] * Non-In Home Aide Final Report (01/01/2023 2:22 PM EDT) Diagnosis Discussion [id number] ? Location: [facility]; [facility]; A The signing pathologist has (i) examined the relevant preparation(s) for the specimen(s) and (ii) rendered or confirmed the diagnosis(es). . ? Non-In Home Aide Final DIAGNOSIS Negative for Malignancy Electronically signed by: ?Marge Feldman MD Verified: ??01/06/2023 11:53 ??Pathologist Performed at: ??-[facility] [place], [place] [address] Alumni Relations Manager: Silviano Arias MD, FCAP, ??CLIA Certificate: [id number] DISCUSSION Lymph node, level 11L (EBUS-guided FNA): Lymph node with abundant compact, non-necrotizing granulomas. No evidence of metastatic disease. Cell block was examined. CLINICAL INFORMATION Specimen Source : Lymph node, level 11L (EBUS-guided FNA, assisted) Pertinent Clinical Data and Significant Therapy: Mediastinal adenopathy with h/o melanoma Clinical Impression : Mediastinal adenopathy with h/o melanoma Pertinent Radiologic Findings ??: (not provided) Gross Description: Received in Formalin approximately 45 mL total volume of cloudy, bloody fluid, with clots. Total Preparation: Diff Quik 2; Pap Stain 2; Cell Block 1. 01/06/2023 11:53 AM EDT [facility] LYMPH NODE SPECIMEN / Unknown 01/01/2023 2:22 PM EDT 01/01/2023 2:22 PM EDT Cameron Decker MD PATHOLOGY/CYTOLO GY ORDERABLES [facility] [address] [place] [address] * Cytopathology Non-Gynecological (01/01/2023 2:22 PM EDT) AP Specimen 01/01/2023 2:22 PM EDT 01/01/2023 2:22 PM EDT Narrative [facility] - 01/01/2023 2:22 PM EDT Specimen requisition ordered. ??Separate Pathology report to follow Cameron Decker MD PATHOLOGY/CYTOLO GY ORDERABLES [facility] [place] [address] * Non-In Home Aide Final Report (01/01/2023 2:11 PM EDT) Diagnosis Discussion [id number] ? Location: [facility]; [facility]; A The signing pathologist has (i) examined the relevant preparation(s) for the specimen(s) and (ii) rendered or confirmed the diagnosis(es). . ? Non-In Home Aide Final DIAGNOSIS Negative for Malignancy Electronically signed by: ?Marge Feldman MD Verified: ??01/06/2023 11:50 ??Pathologist Performed at: ??-[facility] [place], [place] [address] Alumni Relations Manager: Silviano Arias MD, FCAP, ??CLIA Certificate: [id number] DISCUSSION Lymph node, level 4R (EBUS-guided FNA): Lymph node with abundant compact, non-necrotizing granulomas. No evidence of metastatic disease. Cell block was examined. CLINICAL INFORMATION Specimen Source : Lymph node, level 4R (EBUS-guided FNA, assisted) Pertinent Clinical Data and Significant Therapy: Mediastinal adenopathy with h/o melanoma Clinical Impression : Mediastinal adenopathy with h/o melanoma Pertinent Radiologic Findings ??: (not provided) Gross Description: Received in Formalin approximately 50 mL total volume of cloudy, bloody fluid, with clots. Total Preparation: Diff Quik 2; Pap Stain 2; Cell Block 1. 01/06/2023 11:50 AM EDT [facility] LYMPH NODE SPECIMEN / Unknown 01/01/2023 2:11 PM EDT 01/01/2023 2:11 PM EDT Cameron Decker MD PATHOLOGY/CYTOLO GY ORDERABLES [facility] [address] [place] [address] * Cytopathology Non-Gynecological (01/01/2023 2:11 PM EDT) AP Specimen 01/01/2023 2:11 PM EDT 01/01/2023 2:11 PM EDT Narrative [facility] - 01/01/2023 2:11 PM EDT Specimen requisition ordered. ??Separate Pathology report to follow Cameron Decker MD PATHOLOGY/CYTOLO GY ORDERABLES [facility] [place] [address] * Flow Cytometry Report (01/01/2023 1:50 PM EDT) Flow Cytometry Report [id number] ? Location: [facility]; [facility]; The signing pathologist has (i) examined the relevant preparation(s) for the specimen(s) and (ii) rendered or confirmed the diagnosis(es). . ?Flow Cytometry DIAGNOSIS LEVEL 7, LYMPH NODE - FLOW CYTOMETRY: - No monotypic B-cell population or phenotypically abnormal T-cell population. Electronically signed by: ?Deniz Crews DO Verified: ??01/04/2023 9:31 ?? Pathologist Performed at: ??-[facility] [place], [place] [address] Alumni Relations Manager: Silviano Arias MD, FCAP, ??CLIA Certificate: [id number] DISCUSSION Cell viability was ~65% as assessed by 7-AAD exclusion. Blasts based on CD45/SSC/CD117, are not increased. The T-lymphocytes, B- lymphocytes and CD56+ NK cells comprise approx 64%, 33%, 3% of the gated population, respectively. The CD19 positive B-cells have a polytypic expression of surface immunoglobulin light chain (Dresser:Lambda ratio at 1.2). The T-cells are an admixture of CD4+ and CD8+ T lymphocytes (ratio of 2.7). No loss or atypical intensity distributions are seen for any fernandez T antigen (CD2, 3, 4+8, 5, 7). There is no increase in VJ82-apqmnpvi/CD3-n eg NK cells. Flow analysis is an ancillary study. A definite diagnosis requires correlation with the morphologic features of this process and if necessary, correlation with other ancillary studies like immunohistochemistr y, enzyme cytochemistry and/or cyto/ molecular genetics. This test was developed and its performance characteristics determined by the Clinical Flow Cytometry Laboratory at [facility]. It has not been cleared or approved by the U.S. Food and Drug Administration. ??The FDA has determined that such clearance or approval is not necessary. ??This test is used for clinical purposes. ??It should not be regarded as investigational or for research. This laboratory is certified under the Clinical Laboratory Improvement Act of 1988 (CLIA) as qualified to perform high complexity clinical laboratory testing. SPECIMEN PROCESSING [id number] Cells for immunophenotypic analysis were derived from [...] melanoma now with mediastinal lymphadenopathy, underwent bronchoscopy. [facility] 01/01/2023 1:50 PM EDT Cameron Decker MD PATHOLOGY/CYTOLO GY ORDERABLES [facility] [place] [address] * Immunophenotyping Flow Cytometry (01/01/2023 1:50 PM EDT) Immunophenotyping Flow See Comment [facility] Comment: When completed by the Pathologist, the Flow Cytometry Report ([id number]) will display under the Pathology Results section within eD. Other 01/01/2023 1:50 PM EDT 01/01/2023 3:07 PM EDT Narrative Resulting Agency Comment Spec In Lab Cameron Decker MD HEMATOLOGY ORDER MERI Performing Organization Address [facility] Co de Phone Number [facility] [place] [address] * Anaerobic Culture (01/01/2023 1:49 PM EDT) Anaerobic Culture No anaerobic organisms isolated [facility] Lymph Node 01/01/2023 1:49 PM EDT 01/01/2023 3:51 PM EDT Comment:Level 7 lymph node Narrative Resulting Agency Comment Spec In Lab Cameron Decker MD MICROBIOLOGY - G ENERAL ORDERABLES Performing Organization Address [facility] de Phone Number [facility] [place] [address] * (ABNORMAL) Tissue culture (01/01/2023 1:49 PM EDT) Tissue Culture Coagulase negative Staphylococcus species isolated from broth culture. Probable contaminant No growth on original plates. (A) [facility] Gram Stain Few Neutrophils seen No microorganisms seen. (A) [facility] Organism Coagulase negative Staphylococcus species(A) [facility] Lymph Node 01/01/2023 1:49 PM EDT 01/01/2023 3:51 PM EDT Comment:Level 7 lymph node Narrative Resulting Agency Comment Spec In Lab Cameron Decker MD MICROBIOLOGY - G ENERAL ORDERABLES Performing Organization Address [facility] de Phone Number [facility] [place] [address] * Non-In Home Aide Final Report (01/01/2023 1:48 PM EDT) Diagnosis Discussion [id number] ? Location: [facility]; [facility]; A The signing pathologist has (i) examined the relevant preparation(s) for the specimen(s) and (ii) rendered or confirmed the diagnosis(es). . ? Non-In Home Aide Final DIAGNOSIS Negative for Malignancy Electronically signed by: ?Marge Feldman MD Verified: ??01/06/2023 11:35 ??Pathologist Performed at: ??-[facility] [place], [place] [address] Alumni Relations Manager: Silviano Arias MD, FCAP, ??CLIA Certificate: [id number] DISCUSSION Lymph node, level 7 (EBUS-guided FNA): Lymph node with abundant compact, non-necrotizing granulomas. No evidence of metastatic disease. Cell block was examined. --- Immunohistochemistry Studies --- Interpretation: ? Immunohistochemical assays were performed (on paraffin-embedded cell block sections fixed in 10% neutral buffered formalin for 6-72 hours) using the polymer technique with appropriate controls. Block ? Antibody ?Result (Positive/Negative) A1 ? Mycobacterium ? Negative A1 ? SOX10 ? Negative for melanoma These immunohistochemical studies provide ancillary information and are used only in conjunction with standard diagnostic procedures. Special Stains: Formalin-fixed, paraffin-embedded cell block sections are studied with appropriate positive controls. Block ? Special Stain ? Result (Positive/Negative) A1 ? AFB ? Negative for acid-fast organisms A1 ? GMS ? Negative for fungal organisms A1 ? PAS ? Negative for fungal organisms CLINICAL INFORMATION Specimen Source : Lymph node, level 7 (EBUS-guided FNA, assisted) Pertinent Clinical Data and Significant Therapy: Mediastinal adenopathy with h/o melanoma Clinical Impression : Mediastinal adenopathy with h/o melanoma Pertinent Radiologic Findings ??: (not provided) Gross Description: . CLINICAL INFORMATION Received in Formalin approximately 45 mL total volume of cloudy, pink fluid, with clots. Total Preparation: Diff Quik 1; Pap Stain 1; Cell Block 1. 01/06/2023 11:35 AM EDT [facility] LYMPH NODE SPECIMEN / Unknown 01/01/2023 1:48 PM EDT 01/01/2023 1:48 PM EDT Cameron Decker MD PATHOLOGY/CYTOLO GY ORDERABLES Performing Organization Address City/[facility]/ZIP Co de Phone Number [facility] [place] [place] [id number] [place] [address] [place] [address] * Cytopathology Non-Gynecological (01/01/2023 1:48 PM EDT) AP Specimen 01/01/2023 1:48 PM EDT 01/01/2023 1:48 PM EDT Narrative [facility] - 01/01/2023 1:48 PM EDT Specimen requisition ordered. ??Separate Pathology report to follow Cameron Decker MD PATHOLOGY/CYTOLO GY ORDERABLES Performing Organization Address City/[facility]/ZIP Co de Phone Number [facility] [place] [address] * EKG 12 Lead (01/01/2023 12:53 PM EDT) Ventricular rate 67 BPM MUSE SYSTEM Atrial Rate 67 BPM MUSE SYSTEM P-R Interval 150 ms MUSE SYSTEM QRS Duration 94 ms MUSE SYSTEM Q-T Interval 374 ms MUSE SYSTEM QTC Calculated (Bezet) 395 ms MUSE SYSTEM Calculated P [place] 28 degrees MUSE SYSTEM Calculated R [place] 26 degrees MUSE SYSTEM Calculated T [place] 10 degrees MUSE SYSTEM INTERPRETATION Normal sinus rhythm with sinus arrhythmia Normal ECG No previous ECGs available Confirmed by MD DIAZ SALVATORE ([id number]) on 01/01/2023 3:58:07 PM MUSE SYSTEM 01/01/2023 12:5 3 PM EDT 01/01/2023 3:58 PM EDT Anjum Chiang MD ECG ORDERABLES MUSE SYSTEM * POCT Glucose (01/01/2023 12:40 PM EDT) Glucose, POC 103 65 - 199 mg/dL [facility] Comment: Supplemental ranges: <140 mg/dL before meals <180 mg/dL all other times of the day Blood 01/01/2023 12:4 0 PM EDT 01/01/2023 12:40 PM EDT Cameron Decker MD POINT OF CARE TE ST ORDERABLES [facility] [place] [address] * Differential, Automated (01/01/2023 11:47 AM EDT) Neutrophil % 59.2 % [facility] Neutrophil Absolute 4.56 1.70 - 6.10 x10(3)/[facility] Lymph % 26.3 % [facility] Lymphocytes Abs 2.0 0.9 - 3.2 x10(3)/[facility] Monocyte % 10.3 % [facility] Monocyte Abs 0.8 0.3 - 0.9 x10(3)/[facility] Eos % 3.4 % [facility] Eosinophils Abs 0.3 0.0 - 0.4 x10(3)/[facility] Basophil % 0.4 % [facility] Baso Absolute 0.0 0.0 - 0.1 x10(3)/[facility] Immature Gran % 0.40 % [facility] Comment: Immature granulocytes(IG's)percentage and absolute count will include metamyelocytes, myelocytes, and promyelocytes. Blood smears from CBCs yielding IG's will be scanned manually for concordance. If this scan disagrees with the automated IG or if promyelocytes are noted, a manual differential will be performed. Immature Gran Absolute 0.03 0.00 - 0.04 x10(3)/[facility] Blood 01/01/2023 11:4 7 AM EDT 01/01/2023 11:53 AM EDT Narrative Resulting Agency Comment Spec In Lab Anjum Chiang MD HEMATOLOGY ORDERABLE S Performing Organization Address City/[facility] Co de Phone Number [facility] [place] [address] * Hemogram (01/01/2023 11:47 AM EDT) White Blood Cell 7.7 4.0 - 9.5 x10(3)/[facility] Red Blood Cell 5.20 4.58 - 5.54 x10(6)/[facility] Hemoglobin 15.8 13.7 - 16.5 g/dL [facility] Hematocrit 46.6 40.5 - 48.5 % [facility] Mean Cell Volume 89.6 82.9 - 93.1 fL [facility] Mean Cell Hemoglobin 30.4 27.5 - 32.1 pg [facility] Mean Cell Hemoglobin Concentration 33.9 32.0 - 35.7 g/dL [facility] Platelet 218 145 - 357 x10(3)/[facility] RDW Standard Deviation 41.4 36.0 - 45.0 fL [facility] RDW coefficient of variation 12.6 11.4 - 13.8 % [facility] Mean Platelet Volume 9.8 7.6 - 12.9 fL [facility] NRBC% auto 0.0 % [facility] NRBC Absolute 0.000 0.000 - 0.000 x10(3)/[facility] Blood 01/01/2023 11:4 7 AM EDT 01/01/2023 11:53 AM EDT Narrative Resulting Agency Comment Spec In Lab Anjum Chiang MD HEMATOLOGY ORDERABLE S Performing Organization Address City/[facility]/ZIP Co de Phone Number [facility] [place] [address] documented in this encounter Visit Diagnoses Diagnosis Malignant melanoma, unspecified site Mediastinal adenopathy Enlargement of lymph nodes Malignant melanoma, unspecified site Mediastinal adenopathy Enlargement of lymph nodes documented in this encounter Administered Medications Inactive Administered Medications - up to 3 most recent administrations Medication Order MAR Action Action Date Dose Rate Site acetaminophen (Tylenol) tablet 1,000 mg 1,000 mg, Oral, ONCE, 1 dose, On Wed01/01/23 at 1230, Administer with SIP of H2O only. Maximum dose of acetaminophen is 4,000 mg from all sources in 24 hours., Day of Surgery (Day of Procedure), Routine Given 01/01/2023 12:37 PM EDT 1,000 mg heparin (porcine) (5,000 units/1 mL) subcutaneous injection 5,000 Units 5,000 Units, Subcutaneous, LEAD TINNER TO O.R., 1 dose, On Wed01/01/23 at 1230, May be given without time restriction AFTER placement of an epidural. If administered prior to epidural placement WAIT 6 hours before placing the epidural., Day of Surgery (Day of Procedure), Routine Given 01/01/2023 12:37 PM EDT 5,000 Units lactated ringers infusion 1,000 mL, at 100 mL/hr, Intravenous, CONTINUOUS, Starting on Wed01/01/23 at 1230, Until Wed01/01/23 at 1621, Day of Surgery (Day of Procedure) New Bag 01/01/2023 12:35 PM EDT 1,000 mLs 100 mL/hr documented in this encounter Active and Recently Administered Medications Times are shown in EDT. Scheduled Medication Order 12/30/2022 12/31/2022 01/01/2023 acetaminophen (Tylenol) tablet 1,000 mg (COMPLETED) 1,000 mg, Oral, ONCE, 1 dose, On Wed01/01/23 at 1230, Administer with SIP of H2O only. Maximum dose of acetaminophen is 4,000 mg from all sources in 24 hours., Day of Surgery (Day of Procedure), Routine 1237 (Given - Provid er: Chance Armstrong RN) heparin (porcine) (5,000 units/1 mL) subcutaneous injection 5,000 Units (COMPLETED) 5,000 Units, Subcutaneous, LEAD TINNER TO O.R., 1 dose, On Wed01/01/23 at 1230, May be given without time restriction AFTER placement of an epidural. If administered prior to epidural placement WAIT 6 hours before placing the epidural., Day of Surgery (Day of Procedure), Routine 1237 (Given - Provid er: Chance Armstrong RN) Continuous Medication Order 12/30/2022 12/31/2022 01/01/2023 lactated ringers infusion (CANCELED) 1,000 mL, at 100 mL/hr, Intravenous, CONTINUOUS, Starting on Wed01/01/23 at 1230, Until Wed01/01/23 at 1621, Day of Surgery (Day of Procedure) 1235 (New Bag - Prov ider: Orrylee Armstrong RN) documented in this encounter Care Teams Museum Preparator Relationship Specialty Start Date End Date Britt Bravo PA [address] [place] [id number] PCP - General Family Medicine 11/18/22 documented as of this encounter
--- OUTSIDE RECORDS SUMMARY | 2024-05-09 15:35 | XMS_ITS | Encounter Summary ---
Author Organization [facility] Address [facility] [place] [address] Care Team Providers Care Funeral Home Makeup Artist Name Role Phone Britt Bravo Primary Care Provider [phone] Encounter Details Date Type Department Care Team (Latest Contact Info) Description 07/14/2023 10:36 AM EST - 07/14/2023 6:27 PM EST Hospital En[place] [address] Romain Casarez MD [facility] [place] [address] Discharge Disposition: Home Social History Tobacco Use Types Packs/Day Years [...] Gradually increase your food intake starting with coiled coil inspector foods to a more regular diet Driving [...] daytime hours by calling the surgeryoffice at [phone]. - After hours, weekends and holidays, you may call the hospital fence machine operator at [phone] Valdes's surgery team paged. Follow up You have follow-up as below. If you have any concerns, need to reschedule, or would like to switch to an in person visit, please call our clinic at [phone]. Future Appointments Date Time Provider Department Center 08/10/2023 12:00 PM Randi Harkins APRN [facility] documented in this encounter Medications at Time [...] tablet Take 500 mg by mouth daily. SVNUHII-DFLPUKURY-BCDN ORAL Take 1 tablet by mouth daily. [...] IR drainage INGUINAL HERNIA REPAIR Right PRO [facility] EBUS GUIDED SAMPL 3/> NODE STATION/STRUX N/A 01/01/2023 BRONCH, W ENDOBRONCHIAL ULTRASOUND (EBUS) GUIDED SAMPLING, 3+ NODES (WRVU 4.96) performed by Cameron Shelby MD at [facility] MAIN OR SKIN CANCER EXCISION Right lower right back No current facility-administered medications on file prior to encounter. Current Outpatient Medications on File Prior to Encounter Medication Sig Dispense Refill ascorbic acid, Vitamin C, (Vitamin C) 500 mg tablet Take 500 mg by mouth daily. JICTFTA-PJTMROLKN-TXXO ORAL Take 1 tablet by mouth daily. glucosamine/msm/chondrt/C/hyal (BWMHBGOKVKL-KRWJXIRUBMK-KKS ORAL) Take 1 tablet by mouth daily. [...] Hay Fever And Allergy Relief [Chlorpheniramine-Phenylpropan] [place] GEN: NAD HEENT: trachea midline, no scleral icterus PULM: normal respiratory effort CARD: well perfused, stable ABD: soft, non tender, non distended Rt groin swelling below inguinal ligament Skin: no rash, no diaphoresis MSH: no gross deformity NEURO: GCS 15 PSYCH: normal mood and affect documented in this encounter Miscellaneous Notes * Op Note - Romain Casarez MD - 07/14/2023 4:50 PM EST [facility] Operative Note Patient Name: Diallo Solomon : [id number] MR#: [id number] Case Date: 07/14/2023 Surgeon: Surgeon(s) and Role: [...] PATHOLOGY Right Groin Lipoma OR 26 ; 3-1876 Inguinal Hernia Right Groin Lipoma excision No [...] 12 mm port site closed with a [id number] 0 Vicryl suture. A small skin crease [...] PM EST Repair Recurr Inguin Elmo, Reducibl ([id number]) 07/14/2023 4:21 PM EST Inguinal Hernia POCT GLUCOSE Routine 07/14/2023 2:08 PM EST HERNIA REPAIR, INGUINAL, RECURRENT Routine 07/14/2023 1:34 PM EST documented in this encounter Results * Surgical Pathology Report (07/14/2023 5:17 PM EST) Final Diagnosis [id number] ? Location: [facility]; [facility]; The signing pathologist has (i) examined the relevant preparation(s) for the specimen(s) and (ii) rendered or confirmed the diagnosis(es). . ?Surgical Pathology DIAGNOSIS A - Soft tissue, right groin; excision: ?Mature adipose tissue, clinically a lipoma. Electronically signed by: ?Carole RAMIREZ, Kareem Bautista Verified: ??07/23/2023 14:18 ??Pathologist Performed at: ??-[facility] [place] Dept. of Pathology, [place] [address] Special Services Agent: Silviano Arias MD, FCAP, ??CLIA Certificate: [id number] SPECIMEN(S) SUBMITTED A - Right groin CLINICAL INFORMATION PROVIDED: Inguinal hernia. SPECIMEN PROCESSING A - Labeled/Fixative: ?? Right groin lipoma, fresh. Quantity/Size: Single, 6.8 x 5.5 x 2.5 cm. Tissue Description: Lobulated glistening yellow fatty soft tissue mass with a delicate, translucent capsule. ??Cut surfaces are homogeneous. Sections/Processi ng: Inked, serially sectioned and assistance representative sections submitted in 4 cassettes labeled A1-A4. ??ajw 07/23/2023 2:18 PM EST [facility] SOFT TISSUE MASS / Unknown 07/14/2023 5:17 PM EST 07/14/2023 5:17 PM EST Romain Casarez MD PATHOLOGY/CYTOLOGY O JEWEL Performing Organization Address City/[facility] Co de Phone Number [facility] [place] [address] [facility] [place] [address] * Specimen to Pathology (07/14/2023 5:17 PM EST) AP Specimen 07/14/2023 5:17 PM EST 07/14/2023 5:17 PM EST Narrative [facility] - 07/14/2023 5:17 PM EST Specimen requisition ordered. ??Separate Pathology report to follow Romain Casarez MD PATHOLOGY/CYTOLOGY O JEWEL Performing Organization Address [facility] Co de Phone Number [facility] [place] [address] * POCT Glucose (07/14/2023 2:08 PM EST) Glucose, POC 86 65 - 199 mg/dL [facility] Comment: Supplemental ranges: <140 mg/dL before meals <180 mg/dL all other times of the day Blood 07/14/2023 2:08 PM EST 07/14/2023 2:08 PM EST Romain Casarez MD POINT OF CARE TEST O JEWEL Performing Organization Address [facility] Co de Phone Number [facility] [place] [address] documented in this encounter Visit Diagnoses Not [...] Given 07/14/2023 2:14 PM EST 975 mg heparin (porcine) (5,000 units/1 mL) subcutaneous [...] Day of Surgery (Day of Procedure), Routine 141 (Given - Provid er: Linsey Aceves RN) [...] Until Wed07/14/23 at 2026, Intra-Operative (Intra-Procedure), Routine 172 (Given - Provid er: Romain Casarez MD) documented in this encounter Care Teams Funeral Home Makeup Artist Relationship Specialty Start Date End Date Britt Bravo PA [address] [address] PCP - General Family Medicine 11/18/22 documented as of this encounter
--- OUTSIDE RECORDS SUMMARY | 2024-05-09 15:35 | XMS_ITS | Continuity of Care Document ---
Author Organization [facility] Ambulatory Clinics Address [address] [place] [address] Care Team Providers Care Fac Engineer Name Role Phone MEGAN FLORIAN, MILIND Calles Primary Care Physician [phone] Encounter [facility]MD FIN NBR [id number] Date(s): 04/26/24 - 04/26/24 [facility] [address] [place] [address]- Discharge Disposition: Home Allergies, Adverse Reactions, Alerts [...] supper, # 60 tab, 11 Refill(s), Pharmacy: [id number], 178, cm, 08/03/23 9:08:00 EST, Height, 81.65, [...] information Care Team Personnel Name: MEGAN FLORIAN ([facility]), MILIND Calles Position: No Access Member Role: Primary Care Physician Address: [address] [place] [id number] Care Team Related Persons Name: ANKUSH SIDUH Insurance Providers Guarantor name: INDRA THEA Health [...]
--- OUTSIDE RECORDS SUMMARY | 2024-05-09 15:35 | XMS_ITS | Continuity of Care Document ---
Author Organization [facility] Address [address] [place] [address] Care Team Providers Care Bioinformatician Name Role Phone MILIND GUZMAN PA-C Primary Care Physicia n Encounter TL_CA FIN NBR [id number] Date(s): 11/06/22 - 11/06/[address] [address]- [place] Discharge Disposition: Home or Self Care Attending Physician: MILIND GUZMAN PA-C Admitting Physician: MILIND GUZMAN PA-C Referring Physician: MILIND GUZMAN PA-C Allergies, Adverse Reactions, Alerts Substance Reaction Severity Status Oats Unknown Active Hayfever Unknown Active Walnuts Unknown Active Medications !-Aspir 81 oral delayed release tablet [...] Site Status Esophagogastroduodenoscopy Biopsy 1 09/23/22 Completed Esophagogastroduodenoscopy, flexible, transoral; diagnostic, including collection of specimen(s) by brushing or washing, when performed (separate procedure) 09/22/22 Completed Colonoscopy Completed EGD - Esophagogastroduodenoscopy Completed Excision of melanoma 2 Co mpleted Laparoscopic cholecystectomy Completed Primary repair of umbilical hernia Completed 1auto-populated from documented surgical case 2back Results Radiology Reports * Exam Date Time Procedure Performing Provider Status 11/06/22 11:06 AM MRI Spine Thoracic w/o Contrast Sofia Santana; Agatha (Verified) Notes: (MRI Spine Thoracic w/o Contrast) Reason For Exam: BACK PAIN MRI Spine Thoracic w/o Contrast EXAM DESCRIPTION: MRI Spine Thoracic w/o Contrast 11/06/2022 INDICATION: BACK PAIN TECHNIQUE: Multiplanar MRI examination of the thoracic spine utilizing T1, fat-suppressed T2 and fast STIR technique. COMPARISON: None available FINDINGS: Lateral thoracic spine alignment is satisfactory T8-9: Mild broad-based central/right paracentral disc protrusion without significant stenosis or cord encroachment T9-10: Mild left paracentral disc protrusion with mild left lateral recess stenosis. No significant central stenosis or cord encroachment T10-11: Mild central disc protrusion without significant stenosis or cord encroachment Remaining levels demonstrate no focal disc protrusion or significant stenosis in the thoracic region. Neural foramina appear without significant encroachment bilaterally throughout the thoracic region No intrinsic signal abnormality within the thoracic spinal cord to suggest edema or myelomalacia with no evidence of syrinx. Posterior disc osteophyte complexes in the visualized mid-lower cervical region with mild relative stenosis. No cord encroachment or deformity. No suspicious focal marrow lesions with mild degenerative endplate changes at some levels. No vertebral body compression deformity in the thoracic region Mildly prominent mediastinal lymph nodes in the right paratracheal and subcarinal regions are suspected measuring up to 12 mm in short axis dimension. Dedicated CT chest could be obtained for further evaluation. Paraspinal soft tissues are otherwise unremarkable. IMPRESSION: Mild spondylotic changes. No significant thoracic stenosis or cord encroachment. Please see above discussion. Normal thoracic spinal cord Mildly enlarged mediastinal lymph nodes are suspected as described above. Dedicated CT chest correlation could be obtained. JOB #: [id number] Final Signed by: Gucci Resendiz MD Signed (Electronic Signature): 11/06/2022 1:25 pm Social History Social History Type Response Tobacco Former tobacco user Tobacco Use:. 1 ppd per day. 20 year(s). Sex MR Thoracic spine WO contrast * Gucci Resendiz MD: VERIFY, VERIFY Event Display: Report EXAM DESCRIPTION: MRI Spine Thoracic w/o Contrast 11/06/2022 INDICATION: BACK PAIN TECHNIQUE: Multiplanar MRI examination of the thoracic spine utilizing T1, fat-suppressed T2 and fast STIR technique. COMPARISON: None available FINDINGS: Lateral thoracic spine alignment is satisfactory T8-9: Mild broad-based central/right paracentral disc protrusion without significant stenosis or cord encroachment T9-10: Mild left paracentral disc protrusion with mild left lateral recess stenosis. No significant central stenosis or cord encroachment T10-11: Mild central disc protrusion without significant stenosis or cord encroachment Remaining levels demonstrate no focal disc protrusion or significant stenosis in the thoracic region. Neural foramina appear without significant encroachment bilaterally throughout the thoracic region No intrinsic signal abnormality within the thoracic spinal cord to suggest edema or myelomalacia with no evidence of syrinx. Posterior disc osteophyte complexes in the visualized mid-lower cervical region with mild relative stenosis. No cord encroachment or deformity. No suspicious focal marrow lesions with mild degenerative endplate changes at some levels. No vertebral body compression deformity in the thoracic region Mildly prominent mediastinal lymph nodes in the right paratracheal and subcarinal regions are suspected measuring up to 12 mm in short axis dimension. Dedicated CT chest could be obtained for further evaluation. Paraspinal soft tissues are otherwise unremarkable. IMPRESSION: Mild spondylotic changes. No significant thoracic stenosis or cord encroachment. Please see above discussion. Normal thoracic spinal cord Mildly enlarged mediastinal lymph nodes are suspected as described above. Dedicated CT chest correlation could be obtained. JOB #: [id number] Final Signed by: Gucci Resendiz MD Signed (Electronic Signature): 11/06/2022 1:25 pm Patient Care team information Care Team Personnel Name: MILIND GUZMAN PA-C Position: No Access Member Role: Primary Care Physician Address: Address: [address] [place] [address]- Care Team Related Persons Name: ANKUSH SIDHU
--- OUTSIDE RECORDS SUMMARY | 2024-05-09 15:35 | XMS_ITS | Encounter Summary ---
[place] [address] Care Team Providers Care Food Chemist Name Role Phone Britt Bravo Primary Care Provider Encounter Details Date Type Department Care Team (Latest Contact Info) Description 01/12/2023 Travel Social History Tobacco Use Types Packs/Day [...] on filedocumented in this encounter Care Teams Food Chemist Relationship Specialty Start Date End Date Britt Bravo PA [address] [place] [address] PCP - General Family Medicine 11/18/22 documented as of this encounter
--- OUTSIDE RECORDS SUMMARY | 2024-05-09 15:35 | XMS_ITS | Continuity of Care Document ---
Author Organization [facility] Address [address] [place] [address] Care Team Providers Care Senior Project Engineer Name Role Phone MEGAN FLORIAN, MILIND Calles Primary Care Physician [phone] Encounter [facility] NBR [id number] Date(s): 03/23/24 - 03/23/24 [facility] [address] [place] [address]- [place] Discharge Disposition: Home Allergies, Adverse Reactions, Alerts Substance Reaction Severity Status Hayfever Unknown Active Assessment and Plan Future Appointments Future Scheduled Tests Radiology* CT Chest w/ Contrast 03/22/24 Medications !-Aspir 81 oral delayed release tablet [...] supper, # 60 tab, 11 Refill(s), [id number], 178, cm, 08/03/23 9:08:00 EST, Height, 81.65, [...] 1 ppd per day. 21 year(s). Sex Patient Care team information Care Team Personnel Name: MEGAN FLORIAN ([facility])MILIND Position: No Access Member Role: Primary Care Physician Address: Address: [address] [place] [address] Care Team Related Persons Name: ANKUSH SIDHU Address: Home
--- OUTSIDE RECORDS SUMMARY | 2024-05-09 15:35 | XMS_ITS | Continuity of Care Document ---
Author Organization [facility] Address [address] [place] [address] Care Team Providers Care Bee Keeper Name Role Phone MEGAN FLORIAN, MILIND Calles Primary Care Physician [phone] Encounter [facility] NBR [id number] Date(s): 03/23/24 - 03/23/24 [facility] [address] [place] [address]- [place] Discharge Disposition: Home Allergies, [...] supper, # 60 tab, 11 Refill(s), [id number], 178, cm, 08/03/23 9:08:00 EST, Height, 81.65, [...] information Care Team Personnel Name: MEGAN FLORIAN ([facility])MILIND Position: No Access Member Role: Primary Care Physician Address: Address: [address] [place] [address] Care Team Related Persons Name: ANKUSH SIDHU Address: Home
--- OUTSIDE RECORDS SUMMARY | 2024-05-09 15:35 | XMS_ITS | Encounter Summary ---
Author Organization [facility] Address [facility] [facility] [place] [address] Care Team Providers Care Fuel System Maintenance Worker Name Role Phone Britt Bravo Primary Care Provider [phone] Encounter Details Date Type Department Care Team (Late st Contact Info) Description 07/14/2023 4:19 PM EST Anesthesia Event [place] [id number] Nahid Paul MD [facility] [place] [address] Manav Arceo Anesthesia Record Procedure Summary Procedure Name Responsible Anesthesiologist Anesthesia Start Time Anesthesia Stop Time HERNIA REPAIR, INGUINAL, RECURRENT (WRVU 9.99) (Right: Pelvis) Nahid Paul MD 07/14/23 1619 07/14/23 1737 Events Date Time Event Comment 07/14/2023 1534 1619 AN Verify 1619 Start 1622 An Start Data 1627 An Induction 1632 An Intubation 1633 Anesthesia Ready 1651 Procedure Start 1731 Extubation/LMA Out 1734 an stop data 1737 Recovery or ICU Handoff Felipa ent care was transferred to the destination unit staff after review of the patient's medical history, current anesthetic/surgical status and plan, according to the Provider Handoff Checklist. 1737 Stop Meds Name Total Midazolam 2 mg fentaNYL 100 mcg IV Lidocaine 50 mg Propofol 250 mg Rocuronium 70 mg Ondansetron 8 mg Dexamethasone 8 mg ceFAZolin (Ancef) 2 g vial a ttach to sodium chloride 0.9% 100 mL Mini-Bag Plus 2 g sugammadex 200 mg lactated ringers 900 mL * Agents Name O2 * Blood No blood administrations on file. Lines, Drains, and Airways Type Details Placement Removal Incision 07/14/23; midline; a bdomen; laparoscopic punctures (specify) (2 trocars placed) 07/14/23 0000 by Veronique Peoples RN Incision 07/14/23; Right, ant erior; hip 07/14/23 0000 by Veronique Peoples RN PIV 07/14/23; 1409; 20 g auge, 1 in length; metacarpal vein (top of hand), left; Anatomical Landmarks; MARISA Gomez; distraction, topical anesthetic spray applied, tolerated well, appears comfortable; 07/14/23; 1814 07/14/23 1409 by Linsey Aceves RN 07/14/23 181 by Jodie Damian RN ETT Mask Ventilation: Ad junct (2); ETT Type: Cuffed, Oral; ETT Size: 7.5 mm; Mac Blade: 4; Notes: Asleep, Pre-O2, Cricoid Pressure, Stylette; Attempts: 1; Laryngoscopy Grade: 1; ETT Placement Verified By: Auscultation, Capnometry, Visual; Secured at Teeth: 21 cm; Inserted by: STACY Cuevas; Removal Date: 07/14/23; Removal Time: 17307/14/23 1637 by Manav Arceo 07/14/23 173 by Manav Arceo documented in this encounter Social History Tobacco Use Types Packs/Day Years [...] on file documented as of this encounter OR Notes * Anesthesia Postprocedure Evaluation - Nahid Paul MD - 07/14/2023 5:50 PM EST Department of Anesthesiology Post-procedure Note Patient: Diallo Solomon Procedure Summary Date: 07/14/23 Room / Location: [facility] OR [address] [place] [address] MAIN OR Anesthesia Start: 1619 Anesthesia Stop: 1736 Procedure: HERNIA REPAIR, INGUINAL, RECURRENT (WRVU 9.99) (Right: Pelvis) Diagnosis: (Inguinal Hernia) Surgeons: Romain Vang MD Responsible Provider: Nahid Paul MD Anesthesia Type: general ASA Status: 2 All Anesthesia Providers: Anesthesiologist: Nahid Paul MD Student Nurse Paraffin Machine Operator: Manav Arceo Vitals Value Taken Time BP 148/80 07/14/23 1745 Temp 36.6 ??C (97.9 ??F) 07/14/23 1736 Pulse Resp SpO2 100 % 07/14/23 1749 Pain Level 0 07/14/23 1736 Vitals shown include unfiled device data. Patient Location: PACU/[facility] Level of Consciousness: Awake and Alert Pain Management: Satisfactory Analgesia PONV: None Cardiovascular Status: Hemodynamically Stable and At Baseline Respiratory Status: Stable Respiratory Status and Supplemental O2 (NC or FM) Postoperative Fluid Status: Intravascular EUvolemia Possible Anesthetic Complications: NONE apparent at time of evaluation Final Primary Anesthesia Type: General (The anesthetic type performed was the same as planned.) Comments: * Anesthesia Preprocedure Evaluation - Pablo Williamson MD - 07/14/2023 3:32 PM EST Pre-Anesthesia Evaluation for: Diallo Solomon a 67 y.o. male. Procedure(s): HERNIA REPAIR, INGUINAL, RECURRENT (WRVU 9.99) MODIFIER MESH,BARD FLAT MESH Patient Active Problem List Diagnosis Date Noted ??? Gastroesophageal reflux 12/29/2022 ??? Cano's esophagus 12/29/2022 ??? Chronic back pain 12/29/2022 ??? Melanoma 12/29/2022 ??? Mediastinal adenopathy 12/29/2022 ??? Femoral hernia 11/19/2019 Past Medical History: Diagnosis Date ??? GERD (gastroesophageal reflux disease) Past Surgical History: Procedure Laterality Date ??? CHOLECYSTECTOMY, LAPAROSCOPIC c/b deep space infection requiring IR drainage ??? INGUINAL HERNIA REPAIR Right ? ? PRO [facility] EBUS GUIDED SAMPL 3/> NODE STATION/STRUX N/A 01/01/2023 BRONCH, W ENDOBRONCHIAL ULTRASOUND (EBUS) GUIDED SAMPLING, 3+ NODES (WRVU 4.96) performed by Cameron Shelby MD at [facility] MAIN OR ??? SKIN CANCER EXCISION Right lower right back Social History Tobacco Use ??? Smoking status: Former Packs/day: 2.00 Years: 21.00 Additional pack years: 0.00 Total pack years: 42.00 Types: Cigarettes Start date: 1971 Quit date: 1992 Years since quittin.8 ??? Smokeless tobacco: Never Substance Use Topics ??? Alcohol use: Not Currently Comment: quit 16 years ago Social History Substance and Sexual Activity Drug Use Not Currently ??? Types: Marijuana Allergies Allergen Reactions ??? Cat Dander ? ? Dust & Pollen Filter Mask [Facial Mask] ??? Hay Fever And Allergy Relief [Chlorpheniramine-Phenylpropan] ??? Oats ??? [place] Medications: MAR and/or home medications have been reviewed. Physical Exam: Preprocedure Vitals Current as of 07/14/23 1532 BP: 126/77 Pulse: 62 Resp: 16 SpO2: 98 Temp: 36.1 ??C (97 ??F) Height: 177.8 cm (5' 10) (07/14/23) Weight: 82.1 kg (181 lb) (07/14/23) BMI: 25.97 IBW: 73 kg (160 lb 15 oz) Last edited 07/14/23 1400 by TAMI Airway Assessment: Mallampati: II TM distance: >3 FB Neck ROM: full Cardiovascular Assessment: Rhythm: regular system normal Pulmonary Assessment: breath sounds clear to auscultation pulmonary exam normal Dental Assessment: (+) lower dentures and upper dentures Misc Assessment: Last Filed Perioperative Cognitive Screening None Anesthesia Plan: ASA 2 general, with a(n) intravenous induction Diallo Solomon is a 67 y.o. 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 No results for input(s): AST, ALT, ALKPHOS, BILITOT, BILIDIR in the last 7068 hours. No results for input(s): PT, INR, PTT in the last 168 hours. No results found for: ABORH Pt is appropriately NPO Anesthetic Plan GA with ETT Standard ASA monitors, IV access Region - Other Informed Consent: Anesthetic plan and risks discussed with patient. Plan discussed with COMPOSITION MOLDER. Anesthesia Screening documented in this encounter Plan of Treatment Not on file documented as of this encounter Visit Diagnoses Not on filedocumented in this encounter Administered Medications Inactive Administered Medications - up to 3 most recent administrations Medication Order MAR Action Action Date Dose Rate Site ceFAZolin (Ancef) 2 g vial attach to sodium chloride 0.9% 100 mL Mini-Bag Plus 2 g, Intravenous, EVERY 4 HOURS, 1 dose, First dose on Wed07/14/23 at 1415, Administer over 30 Minutes, Intra-Operative (Intra-Procedure), Indication for (Active or Suspected): Prophylaxis New Bag 07/14/2023 4:44 PM EST 2 g dexAMETHasone (Decadron) injection Intravenous, PRN, Starting on Wed07/14/23 at 1631, Until Wed07/14/23 at 1741, Anesthesia Intra-op, Routine Given 07/14/2023 4:31 PM EST 8 mg fentaNYL (pf) (50 mcg/mL) multi-dose injection Intravenous, PRN, Starting on Wed07/14/23 at 1630, Until Wed07/14/23 at 1741, Anesthesia Intra-op, Routine Given 07/14/2023 4:50 PM EST 50 mcg Given 07/14/2023 4:28 PM EST 45 mcg Given 07/14/2023 4:27 PM EST 5 mcg lactated ringers infusion Intravenous, CONTINUOUS PRN, Starting on Wed07/14/23 at 1619, Until Wed07/14/23 at 1741, Anesthesia Intra-op New Bag 07/14/2023 4:19 PM EST lidocaine (pf) (Xylocaine) (20 mg/mL) 2% injection syringe Intravenous, PRN, Starting on Wed07/14/23 at 1627, Until Wed07/14/23 at 1741, Anesthesia Intra-op, Routine Given 07/14/2023 4:27 PM EST 50 mg midazolam (pf) (Versed) (1 mg/mL) multi-dose injection Intravenous, PRN, Starting on Wed07/14/23 at 1619, Until Wed07/14/23 at 1741, Anesthesia Intra-op, Routine Given 07/14/2023 4:19 PM EST 2 mg ondansetron (pf) (Zofran) (2 mg/mL) injection Intravenous, PRN, Starting on Wed07/14/23 at 1648, Until Wed07/14/23 at 1741, Anesthesia Intra-op, Routine Given 07/14/2023 5:20 PM EST 4 mg Given 07/14/2023 4:48 PM EST 4 mg propofoL (Diprivan) 10 mg/mL bolus injection (Anesthesia) Intravenous, PRN, Starting on Wed07/14/23 at 1630, Until Wed07/14/23 at 1741, Anesthesia Intra-op Given 07/14/2023 4:32 PM EST 50 mg Given 07/14/2023 4:30 PM EST 40 mg Given 07/14/2023 4:27 PM EST 160 mg rocuronium (Zemuron) (10 mg/mL) multi-dose injection Intravenous, PRN, Starting on Wed07/14/23 at 1627, Until Wed07/14/23 at 1741, Anesthesia Intra-op, Routine Given 07/14/2023 5:05 PM EST 10 mg Given 07/14/2023 4:55 PM EST 10 mg Given 07/14/2023 4:27 PM EST 50 mg sugammadex (Bridion) 100 mg/mL injection Intravenous, PRN, Starting on Wed07/14/23 at 1724, Until Wed07/14/23 at 1741, Anesthesia Intra-op, Routine Given 07/14/2023 5:24 PM EST 200 mg documented in this encounter Care Teams Fuel System Maintenance Worker Relationship Specialty Start Date End Date Britt Bravo PA [address] [place] [address] PCP - General Family Medicine 11/18/22 documented as of this encounter
--- OUTSIDE RECORDS SUMMARY | 2024-05-09 15:35 | XMS_ITS | Encounter Summary ---
Author Organization [facility] Address [facility] [place] [address] Care Team Providers Care Technology Lab Teacher Name Role Phone Britt Bravo Primary Care Provider [phone] Encounter Details Date Type Department Care Team (Latest Contact Info) Description 01/18/2023 3:45 PM EDT TH Visit (TeleHealth) [place] [address] Cameron Shelby MD [facility] [place] [address] Mediastinal adenopathy Social History Tobacco Use Types Packs/Day Years [...] as of this encounter Progress Notes * Cameron Shelby MD - 01/18/2023 3:45 PM EDT Thoracic surgery telephone note Mr. Solomon is a patient of my partner Dr. Chiang on whom I performed EBUS biopsy of multiple enlarged paratracheal and hilar lymph nodes on January 01. The procedure was uncomplicated and I called him today to discuss the findings. He has made an unremarkable recovery. All of the sampled lymph node stations contained nonnecrotizing granuloma. I advised Mr. Solomon that these findings were suggestive, but not diagnostic, of sarcoidosis. I recommended referral to a pulmonary medicine specialist. We will arrange this referral on his behalf. CAMERON SHELBY MD documented in this encounter Plan of Treatment Not on file documented as of this encounter Visit Diagnoses Diagnosis Mediastinal adenopathy Enlargement of lymph nodes documented in this encounter Care Teams Technology Lab Teacher Relationship Specialty Start Date End Date Britt Bravo PA [address] [place] [id number] PCP - General Family Medicine 11/18/22 documented as of this encounter
--- OUTSIDE RECORDS SUMMARY | 2024-05-09 15:35 | XMS_ITS | Encounter Summary ---
[place] [address] Care Team Providers Care Sql Database Programmer Name Role Phone Britt Bravo Primary Care Provider Encounter Details Date Type Department Care Team (Latest Contact Info) Description 06/10/2023 Travel Social History Tobacco Use Types Packs/Day [...] on filedocumented in this encounter Care Teams Sql Database Programmer Relationship Specialty Start Date End Date Britt Bravo PA [address] [place] [address] PCP - General Family Medicine 11/18/22 documented as of this encounter
--- OUTSIDE RECORDS SUMMARY | 2024-05-09 15:35 | XMS_ITS | Encounter Summary ---
Author Organization [facility] Address [facility] [address] Care Team Providers Care Ticket Printer Name Role Phone Britt Bravo Primary Care Provider Encounter Details Date Type Department Care Team (Latest Contact Info) Description 08/10/2023 Travel Social History Tobacco Use Types Packs/Day [...] on filedocumented in this encounter Care Teams Ticket Printer Relationship Specialty Start Date End Date Britt Bravo PA [address] [place] [address] PCP - General Family Medicine 11/18/22 documented as of this encounter
--- OUTSIDE RECORDS SUMMARY | 2024-05-09 15:36 | XMS_ITS | Encounter Summary ---
Author Organization [facility] Address [facility] [place] [address] Care Team Providers Care Dietitian Consultant Name Role Phone El Thomas MD Primary Care Provider [phone] Reason for Visit * Reason Onset Date Comments Pre Procedure Call 08/11/2018 Encounter Details Date Type Department Care Team (Late st Contact Info) Description 08/11/[address] [place] [address] Ely Lackey LPN Pre Procedure Call Social History Tobacco Use Types Packs/Day Years Used Date Smoking Tobacco: Former Smokeless Tobacco: Never Sex and Gender Information Value Date Recorded Sex Assigned at Not on file Gender Identity Not on file Sexual Orientation Not on file documented as of this encounter Miscellaneous Notes * Telephone Encounter - Ely Lackey LPN - 08/11/2018 4:28 PM EST Unable to complete pre-op instructions due to patient not having time. He will call our office. Ely Lackey LPN documented in this encounter Plan of Treatment Not on file documented as of this encounter Visit Diagnoses Not on filedocumented in this encounter Care Teams Dietitian Consultant Relationship Specialty Start Date End Date El Thomas MD PCP - General 07/29/10 11/18/21 documented as of this encounter
--- OUTSIDE RECORDS SUMMARY | 2024-05-09 15:36 | XMS_ITS | Encounter Summary ---
Author Organization [facility] Address [facility] [place] [address] Care Team Providers Care Preparation Room Manager Name Role Phone El Thomas MD Primary Care Provider Reason for Visit * Reason Onset Date Comments Pre Procedure Call 08/22/2018 Encounter Details Date Type Department Care Team (Late st Contact Info) Description 08/22/2018 Telephone Dermatology at [facility] [address] [place] [address] Ely Lackey LPN Pre Procedure Call Social History Tobacco Use Types Packs/Day Years Used Date Smoking Tobacco: Former Smokeless Tobacco: Never Sex and Gender Information Value Date Recorded Sex Assigned at Not on file Gender Identity Not on file Sexual Orientation Not on file documented as of this encounter Miscellaneous Notes * Telephone Encounter - Ely Lackey LPN - 08/22/2018 2:26 PM EST Pre-Op excision phone call Date of Call: 08/22/18 Surgical procedure to be done: Excision surgery on 08/23/18 Surgical Pathology: [id number] Spoke with Mr. Solomon by phone to review the following. Review of allergies and medications: instructed to take all medications prior to procedure Does not take any blood thinners. Does not have any allergies to Lidocaine or epinephrine. Does not take antibiotics before dental procedures. Does not have any cardiac issues, murmurs or valve replacements. Does not have a pacemaker or defibrillator. Has not had a total joint replacement with in the past 2 years. Recommend that he be accompanied by someone who can drive him home if needed. Discussed length of procedure and time variables. Post operative instructions reviewed including physical limitations after procedure. Phone number given should any questions or concerns arise before or after the procedure. Mr. Solomon states that he understands all of the above. Ely Lackey LPN documented in this encounter Plan of Treatment Not on file documented as of this encounter Visit Diagnoses Not on filedocumented in this encounter Care Teams Preparation Room Manager Relationship Specialty Start Date End Date El Thomas MD PCP - General 07/29/10 11/18/21 documented as of this encounter
--- OUTSIDE RECORDS SUMMARY | 2024-05-09 15:36 | XMS_ITS | Encounter Summary ---
[place] [address] Care Team Providers Care Scanning Tech Name Role Phone Britt Bravo Primary Care Provider [phone] Encounter Details Date Type Department Care Team (Latest Contact Info) Description 12/29/2022 Travel Social History Tobacco Use Types Packs/Day [...] on filedocumented in this encounter Care Teams Scanning Tech Relationship Specialty Start Date End Date Britt Bravo PA [address] [place] [id number] PCP - General Family Medicine 11/18/22 documented as of this encounter
--- OUTSIDE RECORDS SUMMARY | 2024-05-09 15:36 | XMS_ITS | Encounter Summary ---
Author Organization [facility] Address [facility] [place] [address] Care Team Providers Care Transformation Specialist Name Role Phone El Thomas MD Primary Care Provider Encounter Details Date Type Department Care Team (Late st Contact Info) Description 11/19/2021 10:30 AM EDT Office Visit Dermatology at [facility] [address] [place] [address] Siri Ahuja MD [facility] [place] [address] History of melanoma; Lentigines; Multiple benign nevi; SK (seborrheic keratosis); Dermatofibroma; AK (actinic keratosis); Skin cancer screening Social History Tobacco Use Types Packs/Day Years Used Date Smoking Tobacco: Former Smokeless Tobacco: Never Sex and Gender Information Value Date Recorded Sex Assigned at Not on file Gender Identity Not on file Sexual Orientation Not on file documented as of this encounter Progress Notes * Siri Ahuja MD - 11/19/2021 10:30 AM EDT Images from the original note were not included. DEPARTMENT OF DERMATOLOGY Medical Dermatology Clinic Provider: Siri Ahuja MD Patient's preferred name Diallo Preferred contact method for results [x]Phone []myD-H []Letter Detailed phone message OK? Y Are there any other people with whom we may discuss your care? - Aby Past Medical History Date, location, treatment Melanoma 07/25/2018 Right lower back, at least melanoma in situ,??s/p??excision with 1cm margins.??Suspicious for invasion of 0.3mm. Overlying scar,??lentiginous compound melanocytic nevus, present at the peripheral specimen edge Dysplastic nevi N SCC N BCC N AKs Y UV Exposure & Protection + history of tanning bed use + history of blistering sunburn Sun Protection: SPF 30+ Applies about 50% Other relevant past medical history N Family History Details Melanoma N NMSC N Other relevant family history N Social History Self-employed contractor,??builds houses Wears a shirt when working outside now, used to work without?? Pre-Procedure Questions Details Allergy to lidocaine, epinephrine, Dermabond, chlorhexidine, or adhesives N Bleeding disorder or blood thinners ASA 81 mg Pacemaker, defibrillator, deep brain stimulator, cochlear implant N History of Present Illness: Diallo Solomon is a 66 y.o. Patient returns to clinic today for a 6 month FSE, hx of melanoma. - Patient denies any pruritic, painful, bleeding, nonhealing, or growing/changing lesions of concern today. Last visit at Dermatology: 01/26/2020 Last visit with this provider: Visit date [...] ears, neck, chest, axillae, abdomen, back, buttocks, and upper and lower extremities was normal with the exception of the findings below. Genitalia not examined. - Lymph nodes: no occipital, pre- or post auricular, cervical, submandibular, submental, supraclavicular, axillary, or inguinal LAD Assessment/Plan #. Actinic keratoses - ill-defined scaly pink papule(s) on the antihelix x 1, left nasal sidewall x1, right jehovah's witness x 1 - Reviewed diagnosis with patient, premalignant potential, and treatment options including clinicalmonitoring (risks include progression), LN2 (risks including discoloration, discomfort, and possible recurrence), and field therapy - Joint decision to proceed with LN2 Procedure: Destruction of lesion(s) with cryotherapy (LN2). Location(s): As noted above. Number: 3 Discussed procedure and expectations, including risks and benefits. Verbal consent obtained. Treated with LN2. There were no complications; Patient tolerated the procedure well. Post-procedure expectations and wound care reviewed. # Solar lentigines - 0.3-0.6cm light-brown evenly pigmented, well-demarcated macules in a photodistributed pattern on the face, trunk and extremities. - Recommend diligent sun protection (hats/shade/clothing/sunscreen) - Discussed warning signs of skin cancer # Benign nevi - Scattered medium-brown macules and papules on the head, trunk, and extremities. - Reassured of benign appearance on exam today. - Reviewed warning signs of skin cancer - Recommend daily sun protection with protective clothing and SPF 30+ # Seborrheic keratoses - estevez/brown waxy stuck-on papules and plaques on the trunk and extremities. - Reassured of the benign nature of these lesions - No treatment needed #. Dermatofibroma - Left lateral calf: 8 mm firm brown papule -Counseled: Dermatofibromas, benign/non-cancerous growth of dermal dendritic histiocyte cells, commonly arise at site of a minor injury and etiology is unknown, prognosis, treatment options if recursand/or is symptomatic. #. History of MIS with suspicion for invasion of 0.3mm - well healed surgical scar on the right lower back with NER and no LAD as above - Discussed importance of sun protection, sun avoidance strategies, protective clothing, and sunscreen. - continue regular skin exams Other: ??? Sun protection discussed (protective clothing and SPF30+ broad-spectrum sunscreen) RTC: 1 year for FSE hx of melanoma []Note routed to assistant secretary [x]Recall placed in scheduling system []Appointment scheduled at checkout Scribe attestation: ADELFO Cunningham has performed the documentation for this encounter in the presence of and acting as a scribe for Siri Ahuja MD. I performed the above scribed service and agree with the accuracy of the documentation in this encounter. Reviewed and signed by: Siri Ahuja MD Dermatology [facility] documented in this encounter Plan of Treatment Not on file documented as of this encounter Visit Diagnoses Diagnosis History of melanoma Personal history of malignant melanoma of skin Lentigines Other dyschromia Multiple benign nevi Benign neoplasm of skin, site unspecified SK (seborrheic keratosis) Other seborrheic keratosis Dermatofibroma Benign neoplasm of skin, site unspecified AK (actinic keratosis) Actinic keratosis Skin cancer screening Screening for malignant neoplasm of the skin documented in this encounter Care Teams Transformation Specialist Relationship Specialty Start Date End Date El Thomas MD [address] [place] [address] PCP - General General Internal Medicine 11/19/2111/04 documented as of this encounter
--- OUTSIDE RECORDS SUMMARY | 2024-05-09 15:36 | XMS_ITS | Encounter Summary ---
Author Organization [facility] Address [facility] [place] [address] Care Team Providers Care Spud Grader Name Role Phone El Thomas MD Primary Care Provider [phone] Reason for Visit * Reason Comments Skin Check * Consultation (Routine) - Closed Specialty Diagnoses / Procedures Referred By Contping t Referred To Contact Dermatology Diagnoses Malignant melanoma of other part of trunk Britt Bravo PA [address] [place] [id number] Parveen Flores MD [address] [place] [address], [facility] [place] [address] Referral ID Status Reason Start Date Expiration Date V isits Requested Visits Authorized [id number] Closed Consult, Test & Treat 10/12/2022 10/12/2023 1 1 Encounter Details Date Type Department Care Team (Late st Contact Info) Description 11/10/2022 2:30 PM EST Office Visit Dermatology at [address] [phone] Parveen Flores MD [address] [place] [address], [facility] [place] [address] History of melanoma; Lentigines; Multiple benign nevi Social History Tobacco Use Types Packs/Day Years Used Date Smoking Tobacco: Former Smokeless Tobacco: Never Sex and Gender Information Value Date Recorded Sex Assigned at Not on file Gender Identity Not on file Sexual Orientation Not on file documented as of this encounter Progress Notes * Parveen Flores MD - 11/10/2022 2:30 PM EST Problem: 1. New patient, initial visit for skin checkup 2. History of malignant melanoma 0.3 mm Breslow depth right lower back July 2018 Diallo presents today for a general skin checkup. He has a history of malignant melanoma which was diagnosed in July 2018 on his right lower back. 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 Physical examination reveals a pleasant 67-year-old gentleman who has a well- healed surgical scar on the right lower back. He has no evidence of recurrent pigmentation there. He has benign examination of the bald parietal scalp the face the neck the chest the back the hands arms forearms thighs andcalves. There is no evidence of premalignant disease today. There is no evidence of a significant actinic keratoses either. Assessment plan: History malignant melanoma right lower back July 2018 1. Patient reassured by his benign skin examination today 2. Reinforced sun avoidance precautions which the patient is following. 3. Clinic in another year for recheck. CC: El Thomas MD documented in this encounter Plan of Treatment Not on file documented as of this encounter Visit Diagnoses Diagnosis History of melanoma Personal history of malignant melanoma of skin Lentigines Other dyschromia Multiple benign nevi Benign neoplasm of skin, site unspecified documented in this encounter Care Teams Spud Grader Relationship Specialty Start Date End Date El Thomas MD [address] [place] [id number] PCP - General General Internal Medicine 11/19/2111/04 documented as of this encounter
--- OUTSIDE RECORDS SUMMARY | 2024-05-09 15:36 | XMS_ITS | Encounter Summary ---
Author Organization [facility] Address [facility] [place] [address] Care Team Providers Care Administrative Sales Assistant Name Role Phone El Thomas MD Primary Care Provider Encounter Details Date Type Department Care Team (Late st Contact Info) Description 07/26/2018 Telephone Dermatology at [facility] [address] [place] [phone] Meron Gilliam MD [facility] [address] [facility] [place] [address] Social History Tobacco Use Types Packs/Day Years Used Date Smoking Tobacco: Former Smokeless Tobacco: Never Sex and Gender Information Value Date Recorded Sex Assigned at Not on file Gender Identity Not on file Sexual Orientation Not on file documented as of this encounter Miscellaneous Notes * Telephone Encounter - Marisol Atkinson - 07/26/2018 11:18 AM EST Patient returned call regarding biopsy results. He would like a call back on his cell phone [phone]. documented in this encounter Plan of Treatment Not on file documented as of this encounter Visit Diagnoses Not on filedocumented in this encounter Care Teams Administrative Sales Assistant Relationship Specialty Start Date End Date El Thomas MD PCP - General 07/29/10 11/18/21 documented as of this encounter
--- OUTSIDE RECORDS SUMMARY | 2024-05-09 15:36 | XMS_ITS | Encounter Summary ---
Author Organization [facility] Address [address] [place] [address] Care Team Providers Care Gas Charger Name Role Phone Unknown, Provider Primary Care Provider [phone] Encounter Details Date Type Department Care Team (Late st Contact Info) Description 04/25/2013 Results Only [facility] [phone] Sylvain Hernandez MD [address] [facility] [address] [place] [address] Social History Tobacco Use Types Packs/Day Years Used Date Smoking Tobacco: Never Assessed Sex and Gender Information Value Date Recorded Sex Assigned at Not on file Gender Identity Not on file Sexual Orientation Not on file documented as of this encounter Plan of Treatment Not on file documented as of this encounter Procedures Procedure Name Priority Date/Time Associated Diagnosis Comments SURGICAL PATHOLOGY Routine 04/25/2013 15 :37 EDT documented in this encounter Results * SURGICAL PATHOLOGY (04/25/2013 15:37 EDT) Pathology Report: SURGICAL PATHOLOGY REPORT Reports generated via electronic interface contain original data; however they are lacking the format of the original report. Caution should be taken when reading/interpreti ng unformatted reports. Name: ? CECILEDIALLO CHAUDHARY ? Accession #: ? [id number] ? : ? 1955 (Age: 57) ??M ? Collect Date: ? 04/25/2013 ? Location: ? [facility] ? Receive Date: ? 04/26/2013 ? Provider: YOSSI HERNANDEZ MD Copy to: MANAS NUNEZ DO ? Final Pathologic Diagnosis: A. SMALL BOWEL, SECOND PORTION OF DUODENUM, BIOPSY: - ??Duodenal mucosa with no specific pathologic features. B. STOMACH, ANTRUM, BIOPSY: - ??Gastric antral mucosa with mild chemical gastropathy. C. ESOPHAGUS, BIOPSY: - ??Columnar lined mucosa with intestinal metaplasia; Negative for dysplasia. - ??Squamous mucosa with histologic features of reflux esophagitis. ?? D. COLON, TRANSVERSE, POLYP, BIOPSY: - ??Tubular adenoma. Document reviewed and electronically signed by: PATRICIA CARBAJAL MD Report ??Date: 04/27/2013 14:36 By the signature above, the attending physician certifies that he/she has personally conducted a gross and/or microscopic examination of the described specimens and rendered or confirmed the above diagnosis. Specimen(s) Received: A. ??2nd portion of duodenum B. ??Antral biopsy C. ??Esophagus biopsy D. ??Transverse colon polyp Clinical History: R/O Desouza's, celiac, H. pylori, chemical gastritis; clinical diagnosis code: 789.06 Gross Description: A. ?Received in formalin labelled with proper patient identification (initials B., D.) and second portion of duodenum is a single pink-estevez tissue fragment (0.4 x 0.3 x 0.2 cm). Submitted intact in A1. B. ?Received in formalin labelled with proper patient identification (initials B., D.) and antral biopsy is a single pink-estevez tissue fragment (0.4 x 0.3 x 0.2 cm). Submitted intact in B1. C. ?Received in formalin labelled with proper patient identification (initials B., D.) and esophagus bx are two pink-estevez tissues (0.3 x 0.2 x 0.2 cm and 0.4 x 0.2 x 0.2 cm). Entirely submitted in C1. D. ?Received in formalin labelled with proper patient identification (initials Danny, Talisha.) and transverse colon polyp is a single pink-estevez tissue fragment (0.2 x 0.2 x 0.2 cm). Submitted intact in D1. Yenni Hassan 04/26/2013 04:05 PM End of Report ALESSANDRA VALDES 04/25/2013 15:3 7 EDT 04/26/2013 15:37 EDT Sylvain Hernandez MD PATHOLOGY ORDERABLES Performing Organization Address City/State/[facility] Co de Phone Number ALESSANDRA VALDES [address] [place] [address] documented in this encounter Visit Diagnoses Not on filedocumented in this encounter Care Teams Gas Charger Relationship Specialty Start Date End Date Unknown, Provider, PCP - General 04/26/13 04/27/13 documented as of this encounter
--- OUTSIDE RECORDS SUMMARY | 2024-05-09 15:36 | XMS_ITS | Encounter Summary ---
Author Organization [facility] Address [facility] [place] [address] Care Team Providers Care Teaching Young Name Role Phone El Thomas MD Primary Care Provider [phone] Reason for Visit * Consultation (Routine) - Closed Specialty Diagnoses / Procedures Referred By Cornelius t Referred To Contact General Surgery Diagnoses FEMORAL HERNIA El Thomas MD [address] [place] [address] [facility] [address] [address] Referral ID Status Reason Start Date Expiration Date Visits Re quested Visits Authorized [id number] Closed 11/09/2019 11/08/2020 1 1 Encounter Details Date Type Department Care Team (Late st Contact Info) Description 11/16/2019 2:20 PM EDT Office [place] [address] Romain Vang MD [facility] [place] [address] Femoral hernia with obstruction without gangrene, recurrence not specified, unspecified laterality Social History Tobacco Use Types Packs/Day Years Used Date Smoking Tobacco: Former Smokeless Tobacco: Never Sex and Gender Information Value Date Recorded Sex Assigned at Not on file Gender Identity Not on file Sexual Orientation Not on file documented as of this encounter Last Filed Vital Signs Vital Sign Reading Time Taken Comments Blood Pressure 121/65 11/16/2019 2:20 PM EDT Pulse 82 11/16/2019 2:20 PM EDT Temperature - - Respiratory Rate 16 11/16/2019 2:20 PM EDT Oxygen Saturation 97% 11/16/2019 2:20 PM EDT Inhaled Oxygen Concentration - - Weight 94.3 kg (208 lb) 11/16/2019 2:20 PM EDT Height 177.8 cm (5' 10) 11/16/2019 2:20 PM EDT Body Mass Index 29.84 11/16/2019 2:20 PM EDT documented in this encounter Progress Notes * Torsten Elizalde MD - 11/16/2019 2:20 PM EDT [facility] Department of General Surgery History & Physical CC: RIGHT groin bulge and pain HPI: Diallo Solomon is a 64 y.o.male with a PMH of RIGHT groin bulge s/p open RIGHT inguinal hernia repair with mesh ([place] repair) on 08/25/2019 in [place] who presents with a persistent RIGHT groin bulge. Mr. Solomon states that he currently is not experiencing any pain or restrictions in his daily activities. He states that the bulge has not increased in size. He denies any symptoms concerning for strangulation or obstruction (denies nausea or emesis, hard painful bulge). He reports that he acutely noticed a right groin bulge down into his medial thigh that progressed over the course of 3 weeks from July to August 2019. He states that there was no change in either the bulge size or his symptoms following his prior repair. His prior operative report was reviewed. His prior CT scan was reviewed. PMH: Past Medical History: Diagnosis Date ??? GERD (gastroesophageal reflux disease) ??? Infection of mouth PSH: Past Surgical History: Procedure Laterality Date ??? INGUINAL HERNIA REPAIR Right Allergies: Allergies Allergen Reactions ??? Cat Dander ? ? Dust & Pollen Filter Mask [Facial Mask] ??? Hay Fever And Allergy Relief [Chlorpheniramine-Phenylpropan] ??? Oats ??? [place] Medications: Current Outpatient Medications on File Prior to Visit Medication Sig Dispense Refill ??? penicillin v potassium (VEETID) 500 mg Tablet Take 1 tablet by mouth 4 times daily. ??? pantoprazole (PROTONIX) 40 mg Tablet, Delayed Release (E.C.) 0 No current facility-administered medications on file prior to visit. Social history: Social History Socioeconomic History ??? Marital status: Spouse name: Not on file ??? Number of children: Not on file ??? Years of education: Not on file ??? Highest education level: Not on file Occupational History ??? Not on file Social Needs ??? Financial resource strain: Not on file ??? Food insecurity Worry: Not on file Inability: Not on file ??? Transportation needs Medical: Not on file Non-medical: Not on file Tobacco Use ??? Smoking status: Former Smoker ??? Smokeless tobacco: Never Used Substance and Sexual Activity ??? Alcohol use: Not on file ??? Drug use: Not on file ??? Sexual activity: Not on file Lifestyle ??? Physical activity Days per week: Not on file Minutes per session: Not on file ??? Stress: Not on file Relationships ??? Social connections Talks on phone: Not on file Gets together: Not on file Attends sikhism service: Not on file Active member of club or organization: Not on file Attends meetings of clubs or organizations: Not on file Relationship status: Not on file ??? Intimate partner violence Fear of current or ex partner: Not on file Emotionally abused: Not on file Physically abused: Not on file Forced sexual activity: Not on file Other Topics Concern ??? Not on file Social History Narrative ??? Not on file Family history: No family history on file. ROS: +/- as per HPI and PMH, otherwise negative for 12 systems reviewed. Physical Exam: Temp: -- Heart Rate: [82] Resp: [16] BP: (121)/(65) SpO2: [97 %] Heart Rate from SpO2: -- General: NAD, AOx3 HEENT: anicteric sclera, PEERL CV: RRR Pulmonary: CTAB GI: prior incisions well-healed, soft, non-tender, non-distended : normal male genitalia, bilateral descended testes, palpable RIGHT groin bulge just below the inguinal ligament extending down into the medial thigh, soft, tender with deep palpation, reducible, no evidence of LEFT inguinal hernia or bulge Neuro: 5/5 strength bilat U and LE, sensation intact globally MSK: wwp, no edema Derm: no obvious skin lesions Labs: Not pertinent Microbiology: Not pertinent Studies: CT scan from 07/2019 was reviewed ASSESSMENT: Diallo Solomon is a 64 y.o. male s/p open RIGHT inguinal hernia repair with mesh who presents with a persistent RIGHT groin bulge. Clinical history and exam consistent with a diagnosis of a RIGHT femoral hernia. The natural history and pathophysiology of hernias and specifically femoral hernias was discussed. Given his prior open repair would recommend repairing this with a laparoscopic approach. The procedure itself, as well as the risks, benefits, and alternatives was discussed. Given his current asymptomatic nature as well as other competing social factors, Mr. Solomon would like to hold off on surgery at this time. Concerning signs and symptoms for strangulation or obstruction were reviewed. He was instructed to call should he would like to pursue repair at any time. All questions answered. PLAN: ?? Laparoscopic RIGHT inguinal/femoral hernia repair with mesh ?? Patient would like to defer repair at this time given his asymptomatic nature and will call whenready to schedule for an operation Torsten Elizalde MD * Romain Vang MD - 11/16/2019 2:20 PM EDT I have seen the patient and reviewed Dr. Elizalde's history and I agree with the details as written.The assessment and plan were formulated in discussion with me and I agree with them as documented. Pertinent History: Right groin lump which is relatively asymptomatic Plan: He would like to defer any repair for now. Will call when he wishes to seek repair. Total visit duration was 30 minutes with over 20 minutes spent in face to face discussion with the patient. documented in this encounter Plan of Treatment Not on file documented as of this encounter Visit Diagnoses Diagnosis Femoral hernia with obstruction without gangrene, recurrence not specified, unspecified laterality documented in this encounter Care Teams Teaching Young Relationship Specialty Start Date End Date El Thomas MD PCP - General 07/29/10 11/18/21 documented as of this encounter
--- OUTSIDE RECORDS SUMMARY | 2024-05-09 15:36 | XMS_ITS | Patient Health Record ---
Author Organization [facility] Address [address] [place] [address] Care Team Providers Care Dowel Setting Machine Operator Name Role Phone Dar Duque Primary Care Provid er [phone] REASON FOR REFERRAL No Information MEDICATIONS Medication SIG (Take, Route, Frequency, Duration) Notes Start Date End Date Status VITAMIN D3 1000 intl units 1 tab(s) orally once a day STOP*please review for potential update for e-prescription and drug interaction check* Active CHONDROITIN-GLUCOSA MINE with Multiple Vitamins and Minerals 1 cap(s) orally 4 times a day STOP*please review for potential update for e-prescription and drug interaction check* Active MAG 64 STOP*please revi ew for potential update for e-prescription and drug interaction check* Active Omeprazole 40 mg 1 cap(s) orally once a day Active Vitamin C 500 mg 1 tab(s) orally once a day Active SOCIAL HISTORY Tobacco Use: Social History Observation Description Date Details (start date - stop date) Never Smoker NA - NA Sex Assigned At : Social History Observation Description Sex Assigned At Unknown SMOKING Question Answer Notes Are you a: nonsmoker PROBLEMS Problem Type ICD Code Onset Dates Problem Status W/U Status Risk SNOMED Code Notes Problem GERD without esophagitis (K21.9) Active confirmed 441390732 PLAN OF TREATMENT Future Test Test Name Order Date BASEMET 11/14/2019 LIPID W/ CALCULATED LDL 11/14/2019 PSA-SCREEN 11/14/2019 HEP-C, AB Screen (G0472) 11/14/2019 Insurance Providers Payer Name Payer Address Payer Phone Subscriber Number Group Number Insured Name Patient Relationship to Insured Coverage Start Date Coverage End Date [employer] [address] [place] [address] [id number] INDRA SIDHU Self - patient is the insured SELF [place]Y [place] [address] [place] [address] INDRA SIDHU Self - patient is the insured MEDICAL (GENERAL) HISTORY Medical History History ICD Code acid reflux Surgical History Surgery Date(Month/Year) appendix 02/2017
--- OUTSIDE RECORDS SUMMARY | 2024-05-09 15:36 | XMS_ITS | Encounter Summary ---
Author Organization [facility] Address [facility] [place] [address] Care Team Providers Care Aerial Gunner Superintendent Name Role Phone El Thomas MD Primary Care Provider Encounter Details Date Type Department Care Team (Late st Contact Info) Description 07/27/2019 Ancillary Procedure [place] [address] Romain Vang MD [facility] [place] [place] [address] Social History Tobacco Use Types Packs/Day Years Used Date Smoking Tobacco: Former Smokeless Tobacco: Never Sex and Gender Information Value Date Recorded Sex Assigned at Not on file Gender Identity Not on file Sexual Orientation Not on file documented as of this encounter Plan of Treatment Not on file documented as of this encounter Procedures Procedure Name Priority Date/Time Associated Diagnosis Comments FILM LIBRARY STORAGE ONLY CT ABDOMEN AND PELVIS Routine 07/27/2019 12:00 AM EST documented in this encounter Results * Film Library- Storage Only CT Abdomen & Pelvis (07/27/2019 12:00 AM EST) Narrative OLIVER - 11/15/2019 10:38 AM EDT This exam is auto-finalizing. It's purpose is for storage only. Romain Vang MD IMG FILM LIBRARY ORD ERABLES [place], [place] documented in this encounter Visit Diagnoses Not on filedocumented in this encounter Care Teams Aerial Gunner Superintendent Relationship Specialty Start Date End Date El Thomas MD PCP - General 07/29/10 11/18/21 documented as of this encounter
--- OUTSIDE RECORDS SUMMARY | 2024-05-09 15:36 | XMS_ITS | Encounter Summary ---
Author Organization [facility] Address [facility] [place] [address] Care Team Providers Care Car Cleaning Supervisor Name Role Phone El Thomas MD Primary Care Provider Reason for Visit * Reason Comments Skin Check FSE Encounter Details Date Type Department Care Team (Late st Contact Info) Description 01/26/2020 9:00 AM EDT Office Visit Dermatology at [facility] [address] [place] [address] Meron Gilliam MD [facility] [address] [address] History of melanoma in situ; Skin tag; Dermatofibroma; Neoplasm of uncertain behavior of skin Social History Tobacco Use Types Packs/Day Years Used Date Smoking Tobacco: Former Smokeless Tobacco: Never Sex and Gender Information Value Date Recorded Sex Assigned at Not on file Gender Identity Not on file Sexual Orientation Not on file documented as of this encounter Patient Instructions * Patient Instructions* Mag Killian CCMA - 01/26/2020 9:00 AM EDT Shave Biopsy Wound Care Instructions Your treatment today: You have had a shave biopsy of your skin, which is a removal of tissue for examination under a microscope. This wound will heal without stitches. Allow 3-6 weeks for the wound to heal fully. If bleeding should occur, hold firm, constant pressure against the wound for 15- 20 minutes (with nopeeking). If bleeding continues, call the clinic or go to your local emergency department. Please allow 1-2 weeks for the biopsy results to return. Based on the results, your physician or nurse will contact you by phone or letter; follow-up will be discussed at that time. If in 2 weeks, you have not heard from us, please feel free to call to request your biopsy results. Wound care instructions: Keep the bandage placed over the wound dry and intact for 24 hours. Afterwards, perform the following wound care daily: ?? Wash your hands. ?? Remove the bandage, clean the area with soap and water, and gently pat dry. ?? Apply a small amount of Vaseline and cover with a Band-Aid. ?? Repeat daily until the wound is healed fully. A small amount of yellow drainage is part of the normal healing process. The area might appear as asmall depression with redness around the edge of the wound; this is normal. Please contact the clinic if you notice any of the following signs of infection: increased pain, tenderness, drainage, or redness that becomes hot or hard around the wound. Contact information: On weekdays (8am to 5pm), please call the clinic at [phone]. After 5pm, and on weekends and holidays, please call the hospital at [phone] and ask for the Warehouse Shipping Receiving Clerk Tool And Die Maker Level Five. documented in this encounter Progress Notes * Meron Gilliam MD - 01/26/2020 9:00 AM EDT Images from the original note were not included. DERMATOLOGY OUTPATIENT CLINIC NOTE Date of service: 01/26/2020 Diallo Solomon : 1955 Provider: Meron Gilliam MD PROBLEM: FSE SKIN HISTORY: Prurigo Nodules Right lower back??07/25/2018 - At least melanoma in situ,??s/p??excision with 1cm margins.?? -Skin, overlying scar, ??Lentiginous compound melanocytic nevus, present at the peripheral specimenedge HPI Diallo Solomon is a 64 y.o. year old male, here for a full skin exam (hx MIS). He reports his scaron right flank/lower back continues to be painful, particularly when going from sitting to standingposition. Patient has no other concerning lesions today. Denies any other lesions that are changing, growing,bleeding or tender. Social History: Self Employed Contractor,??building houses. Wears a shirt when working now, used to work without? Family History: None? ADR: Allergies Allergen Reactions ??? Cat Dander ? ? Dust & Pollen Filter Mask [Facial Mask] ??? Hay Fever And Allergy Relief [Chlorpheniramine-Phenylpropan] ??? Oats ??? [place] CURRENT MEDICATIONS: Current Outpatient Medications Medication Sig Dispense Refill ??? pantoprazole (PROTONIX) 40 mg Tablet, Delayed Release (E.C.) 0 No current facility-administered medications for this visit. PROBLEM LIST: Patient Active Problem List Diagnosis Code ??? Femoral hernia K41.90 ROS General: feeling well. Oriented X 3. Skin: denies other skin complaints EXAM General: NAD, pleasant, cooperative Skin: Patient was asked to disrobe to the level of their comfort. A total body skin exam except forthe genitalia was performed. This includes examination of the skin of the face, ears, neck, chest, axillae, left and right upper and lower extremities, hands, feet, abdomen, back, genitalia and buttocks. The perineum, and perianal areas were not examined. Significant skin findings: - Right lower back: well-healed scar. - Bilateral axillae: 0.2-0.4 cm sessile, flesh-colored papules. - Left lateral calf: 8 mm firm brown papule. - Right lateral canthus. 2.5 x 1.5 cm medium brown patch ASSESSMENT/PLAN History of MIS with suspicion for invasion of 0.3mm - No inguinal lymphadenopathy noted. - NER; continue to monitor. - Pt reassured that scar sensation may continue to improve over time - Discussed importance of sun protection, sun avoidance strategies, protective clothing, and sunscreen. Skin Tags - Discussed benign nature of lesions and provided reassurance. No treatment necessary at this time. Dermatofibroma - Discussed benign nature of lesion and provided reassurance. No treatment necessary. Lentigo maligna vs early evolving SK vs lentigo I discussed this condition with the patient and explored therapeutic options. I recommended we do ashave biopsy, patient is in agreement with this procedure. Procedure: Skin biopsy by shave technique Location: right lateral canthus Discussed indications for procedure and expectations including risks and benefits. Verbal consent obtained. Skin prep with alcohol. Local anesthesia with 1% xylocaine, 1/100,000 epinephrine. A sampleof the lesion was removed by shave technique to the level of the dermis and submitted to Pathology.Hemostasis obtained (AlCl and/or electrocautery). There were no complications; the pt. tolerated the procedure well. The wound was dressed. Post-procedure expectations, wound care and activity restrictions were reviewed. Follow-up based on pathology results RTC - pending pathology, otherwise in 6 months for FSE, routed for scheduling. Note initiated and routed to physician for review and change by: YUNIEL Castillo I, YUNIEL Castillo, have performed the documentation for this encounter in the presence of and acting as a scribe for Meron Gilliam MD. I, Dr. Meron Gilliam, performed the visit service though my nurse assisted me in scribing the note. I reviewed and edited this note above, a scribed service performed by my nurse. On closure of this note I agree with the accuracy of the documentation. Meron Gilliam MD Section of Dermatology [facility] * Meron Gilliam MD - 01/26/2020 9:00 AM EDT Called patient with results - pigmented AK. We will plan to treat with LN2 at his next visit. Meron Gilliam MD documented in this encounter Plan of Treatment Not on file documented as of this encounter Procedures Procedure Name Priority Date/Time Associated Diagnosis Comments SURGICAL PATHOLOGY REPORT Routine 01/26/2020 9:52 AM EDT SPECIMEN TO PATHOLOGY Routine 01/26/2020 9:52 AM EDT Neoplasm of uncertain behavior of skin documented in this encounter Results * Surgical Pathology Report (01/26/2020 9:52 AM EDT) Final Diagnosis [id number] ? Location: [facility] The signing pathologist has (i) examined the relevant preparation(s) for the specimen(s) and (ii) rendered or confirmed the diagnosis(es). . ?Surgical Pathology DIAGNOSIS Right lateral canthus, skin shave biopsy ONLY: - Pigmented actinic keratosis with interface reaction, see Discussion. Electronically signed by: ??Wisam Durant MD Verified: ??01/30/2020 ?Dermatopatholog ist, Bone & Soft Tissue Pathologist Performed at: ??-[facility] [place], [place], [place] DISCUSSION The clinical size of 2.5cm is noted. Clinical correlation to assess the need for resampling is necessary to rule out a melanocytic proliferation which has not been captured with this biopsy. On histologic grounds alone, the presence of an interface reaction also raises the differential of an inflammatory condition in the appropriate clinical context. SPECIMEN(S) SUBMITTED A - Right lateral canthus, skin shave biopsy ONLY (2) CLINICAL INFORMATION Lentigo maligna versus early evolving SK; 2.5 x 1.5 cm medium brown patch SPECIMEN PROCESSING A - Labeled/Fixative: Patient demographics, formalin. Quantity/Size: ??Two, ranging 0.8-1.0 x 0.4-0.6 x 0.1 cm. Tissue Description: 2 wild-brown irregular shaped patchy skin shaves. Sections/Processi ng: Inked, bisected and entirely submitted in 2 cassettes as follows: ?A1: ??0.8 x 0.4 cm skin shave inked and trisected ?A2: ??1.0 x 0.6 cm skin shave inked and quadrasected ??MLL 01/30/2020 6:19 PM EDT [facility] SPECIMEN FROM SKIN / Unknown 01/26/2020 9:52 AM EDT 01/26/2020 9:52 AM EDT Meron Gilliam MD PATHOLOGY/CYTOLOG Y ORDERABLES [facility] [place] [address] * Specimen to Pathology (01/26/2020 9:52 AM EDT) AP Specimen 01/26/2020 9:52 AM EDT 01/26/2020 5:44 PM EDT Narrative [facility] - 01/26/2020 5:44 PM EDT Specimen requisition ordered. ??Separate Pathology report to follow Resulting Agency Comment Spec In Lab Meron Gilliam MD PATHOLOGY/CYTOLOG Y ORDERABLES Performing Organization Address City/[facility]/[place] [address] documented in this encounter Visit Diagnoses Diagnosis History of melanoma in situ Personal history of malignant melanoma of skin Skin tag Unspecified hypertrophic and atrophic condition of skin Dermatofibroma Benign neoplasm of skin, site unspecified Neoplasm of uncertain behavior of skin documented in this encounter Care Teams Car Cleaning Supervisor Relationship Specialty Start Date End Date El Thomas MD PCP - General 07/29/10 11/18/21 documented as of this encounter
--- OUTSIDE RECORDS SUMMARY | 2024-05-09 15:36 | XMS_ITS | Encounter Summary ---
Author Organization Formerly [facility] [place] [address] Care Team Providers Care Cotton Opener Name Role Phone Britt Bravo Primary Care Provider [phone] Encounter Details Date Type Department Care Team (Latest Contact Info) Description 01/01/2023 11:38 AM EDT - 01/01/2023 4:50 PM EDT Hospital [place] [address] Cameron Decker MD [facility] [place] [address] Malignant melanoma, unspecified site; Mediastinal adenopathy Discharge Disposition: Home Social History Tobacco Use [...] Sign Reading Time Taken Comments Blood Pressure 111/80 01/01/2023 3:30 PM EDT Pulse 79 01/01/2023 12:06 PM EDT Temperature 36.3 ??C (97.3 ??F) 01/01/2023 4:15 PM ED T Respiratory Rate 18 01/01/2023 3:30 PM EDT Oxygen Saturation 96% 01/01/2023 3:30 PM EDT Inhaled Oxygen Concentration - - [...] Wednesday- Wednesday 8:00 a.m.-5:00 p.m., please call [phone] to speak to a nurse in the Thoracic Clinic. For emergencies after hours, on weekends, or on holidays, please call [phone] and ask to speakto the Thoracic Surgeon metal sponge making machine operator. Diet: You should follow a regular diet as tolerated. Start slowly with liquids then work your way back up to normal foods. Smoking: If you are a smoker, please avoid smoking. If you are a smoker who needs help quitting, please call the thoracic surgery clinic at [phone]. Pain: You may have a sore throat [...] nurse in the Thoracic Clinic or the metal sponge making machine operator Attending Physician after hours. Follow up appointments: The thoracic surgery clinic will schedule your follow up and/or surgery andwill call you for confirmation. Please call the thoracic surgery clinic at [phone] if you needto reschedule your appointment. You will also get an appointment/surgery confirmation in the mail. Future Appointments and Orders Future Appointments and Orders Future Appointments Provider Department Dept Phone 01/12/2023 2:45 PM Romain Vang MD General Surgery at [facility] [place]rive at: Topographical Field Assistant Area 4L [phone] 11/16/2023 1:45 PM Parveen Flores MD Dermatology at [place] Arrive at: [facility] [address] [phone] If you have any questions or concerns during normal business hours, Wednesday- Wednesday 8:00 a.m.-5:00 p.m., please call [phone] to speak to a nurse in the Thoracic Surgery Clinic. documented in this encounter Medications at Time of Discharge Medication Sig Dispensed Refills Start Date End Date cholecalciferol, Vitamin D3, 25 mcg (1,000 unit) Capsule Take 1,000 Units by mouth daily. ascorbic acid, Vitamin C, (Vitamin C) 500 mg tablet Take 500 mg by mouth daily. OUELSGM-OZVHLTPNH-QNUW ORAL Take 1 tablet by mouth daily. glucosamine/msm/chondrt/C/ hyal (ZLDKMOGGFGZ-GOEPCZLXAAY-T SM ORAL) Take 1 tablet by mouth [...] Take 500 mg by mouth daily. ??? UKUSPER-VEOTRMSBS-PWBA ORAL Take 1 tablet by mouth daily. ??? glucosamine/msm/chondrt/C/hyal (ZFTELUIOMSN-YTZKVEBIMHJ-UHY ORAL) Take 1 tablet by mouth daily. ??? aspirin EC 81 mg EC (DR) tablet Take 81 mg by mouth daily. ??? pantoprazole (PROTONIX) 40 mg Tablet, Delayed Release (E.C.) Take 40 mg by mouth daily. 0 ALL: Allergies Allergen Reactions ??? Cat Dander ? ? Dust & Pollen Filter Mask [Facial Mask] ??? Hay Fever And Allergy Relief [Chlorpheniramine-Phenylpropan] ??? Oats ??? [place] Physical Exam Patient Vitals for the past [...] KAMINI Harmon 01/01/2023 Thoracic Surgery Service Pager [phone] documented in this encounter Miscellaneous Notes * Brief Op Note - Pat Rodríguez PA - 01/01/2023 2:57 PM EDT Brief Operative Note Patient Name: Diallo Solomon : [id number] MR#: [id number] Case Date: 01/01/2023 Surgeon: Surgeon(s) and Role: * Cameron Decker MD - Primary * Pat Rodríguez PA - Physician Bss Solution Architect Preoperative diagnosis: Mediastinal Adenopathy with h/o melenamoa [...] Decker MD - 01/01/2023 1:40 PM EDT [facility] Operative Note Patient Name: Diallo Solomon : [id number] MR#: [id number] Case Date: 01/01/2023 Surgeon: Surgeon(s) and Role: * Cameron Decker MD - Primary * Pat Rodríguez PA - Physician Bss Solution Architect Preoperative diagnosis: Mediastinal Adenopathy with h/o melenamoa [...] Procedure Name Priority Date/Time Associated Diagnosis Comments NON-BAKER PIE FINAL REPORT Routine 01/01/2023 2:30 PM EDT CYTOPATHOLOGY NON-GYNECOLOGICAL Routine 01/01/2023 2:30 PM EDT NON-BAKER PIE FINAL REPORT Routine 01/01/2023 2:22 PM EDT CYTOPATHOLOGY NON-GYNECOLOGICAL Routine 01/01/2023 2:22 PM EDT NON-BAKER PIE FINAL REPORT Routine 01/01/2023 2:11 PM EDT CYTOPATHOLOGY NON-GYNECOLOGICAL Routine 01/01/2023 2:11 PM EDT IMMUNOPHENOTYPING FLOW CYTOMETRY (BLOOD) Routine 01/01/2023 1:50 PM EDT FLOW CYTOMETRY REPORT Routine 01/01/2023 1:50 PM EDT ANAEROBIC CULTURE Routine 01/01/2023 1:4 9 PM EDT HC GRAM STAIN FOR BACTERIA Routine 01/01/2023 1:49 PM EDT TISSUE CULTURE Routine 01/01/2023 1:49 PM EDT NON-BAKER PIE FINAL REPORT Routine 01/01/2023 1:48 PM EDT CYTOPATHOLOGY NON-GYNECOLOGICAL Routine 01/01/2023 1:48 PM EDT [facility] Ebus Guided Sampl 3/> Node Station/Strux ([id number]) Yes 01/01/2023 1:24 PM EDT Malignant melanoma, [...] adenopathy documented in this encounter Results * Non-Computer Forensics Analyst Final Report (01/01/2023 2:30 PM EDT) Diagnosis Discussion [id number] ? Location: [facility]; [facility]; The signing pathologist has (i) examined the relevant preparation(s) for the specimen(s) and (ii) rendered or confirmed the diagnosis(es). . ? Non-Computer Forensics Analyst Final DIAGNOSIS Negative for Malignancy Electronically signed by: ?Gaston RAMIREZ, Marge Hunter Verified: ??01/06/2023 11:57 ??Pathologist Performed at: ??-[facility] Dept. of Pathology, [place] [address] First Beater: Silviano Arias MD, FCAP, ??CLIA Certificate: [id number] DISCUSSION Lymph node, level 4L (EBUS-guided FNA): [...] Cell Block 1. 01/06/2023 11:57 AM EDT [facility] LYMPH NODE SPECIMEN / Unknown 01/01/2023 2:30 PM EDT 01/01/2023 2:30 PM EDT Cameron Decker MD PATHOLOGY/CYTOLO GY ORDERABLES Performing Organization Address [facility] de Phone Number [facility] [address] [place] [address] * Cytopathology Non-Gynecological (01/01/2023 2:30 PM EDT) AP Specimen 01/01/2023 2:30 PM EDT 01/01/2023 2:30 PM EDT Narrative [facility] - 01/01/2023 2:30 PM EDT Specimen requisition ordered. ??Separate Pathology report to follow Cameron Decker MD PATHOLOGY/CYTOLO GY ORDERABLES Performing Organization Address [facility] Co de Phone Number [facility] [place] [address] * Non-Computer Forensics Analyst Final Report (01/01/2023 2:22 PM EDT) Diagnosis Discussion [id number] ? Location: [facility]; [facility]; A The signing pathologist has (i) examined the relevant preparation(s) for the specimen(s) and (ii) rendered or confirmed the diagnosis(es). . ? Non-Computer Forensics Analyst Final DIAGNOSIS Negative for Malignancy Electronically signed by: ?Marge Feldman MD Verified: ??01/06/2023 11:53 ??Pathologist Performed at: ??-[facility] Dept. of Pathology, [place] [address] First Beater: Silviano Arias MD, AP, ??CLIA Certificate: [id number] DISCUSSION Lymph node, level 11L (EBUS-guided FNA): [...] Cell Block 1. 01/06/2023 11:53 AM EDT [facility] LYMPH NODE SPECIMEN / Unknown 01/01/2023 2:22 PM EDT 01/01/2023 2:22 PM EDT Cameron Decker MD PATHOLOGY/CYTOLO GY ORDERABLES [facility] [address] [place] [address] * Cytopathology Non-Gynecological (01/01/2023 2:22 PM EDT) AP Specimen 01/01/2023 2:22 PM EDT 01/01/2023 2:22 PM EDT Narrative [facility] - 01/01/2023 2:22 PM EDT Specimen requisition ordered. ??Separate Pathology report to follow Cameron Decker MD PATHOLOGY/CYTOLO GY ORDERABLES [facility] [place] [address] * Non-Computer Forensics Analyst Final Report (01/01/2023 2:11 PM EDT) Diagnosis Discussion [id number] ? Location: [facility]; [facility]; A The signing pathologist has (i) examined the relevant preparation(s) for the specimen(s) and (ii) rendered or confirmed the diagnosis(es). . ? Non-Computer Forensics Analyst Final DIAGNOSIS Negative for Malignancy Electronically signed by: ?Gaston RAMIREZ, Marge Hunter Verified: ??01/06/2023 11:50 ??Pathologist Performed at: ??-[facility] Dept. of Pathology, [place] [address] First Beater: Silviano Arias MD, FCAP, ??CLIA Certificate: [id number] DISCUSSION Lymph node, level 4R (EBUS-guided FNA): [...] Cell Block 1. 01/06/2023 11:50 AM EDT [facility] LYMPH NODE SPECIMEN / Unknown 01/01/2023 2:11 PM EDT 01/01/2023 2:11 PM EDT Cameron Decker MD PATHOLOGY/CYTOLO GY ORDERABLES [facility] [address] [place] [address] * Cytopathology Non-Gynecological (01/01/2023 2:11 PM EDT) AP Specimen 01/01/2023 2:11 PM EDT 01/01/2023 2:11 PM EDT Narrative [facility] - 01/01/2023 2:11 PM EDT Specimen requisition ordered. ??Separate Pathology report to follow Cameron Decker MD PATHOLOGY/CYTOLO GY ORDERABLES [facility] [place] [address] * Flow Cytometry Report (01/01/2023 1:50 PM EDT) Flow Cytometry Report [id number] ? Location: [facility]; [facility]; A The signing pathologist has (i) examined the relevant preparation(s) for the specimen(s) and (ii) rendered or confirmed the diagnosis(es). . ?Flow Cytometry DIAGNOSIS LEVEL 7, LYMPH NODE - FLOW CYTOMETRY: - No monotypic B-cell population or phenotypically abnormal T-cell population. Electronically signed by: ?Deniz Crews DO Verified: ??01/04/2023 9:31 ?? Pathologist Performed at: ??-[facility] Dept. of Pathology, [place] [address] First Beater: Silviano Arias MD, FCAP, ??CLIA Certificate: [id number] DISCUSSION Cell viability was ~65% as assessed by 7-AAD exclusion. Blasts based on CD45/SSC/CD117, are not increased. The T-lymphocytes, B- lymphocytes and CD56+ NK cells comprise approx 64%, 33%, 3% of the gated population, respectively. The CD19 positive B-cells have a polytypic expression of surface immunoglobulin light chain (Colquitt:Lambda ratio at 1.2). The T-cells are an admixture of CD4+ and CD8+ T lymphocytes (ratio of 2.7). No loss or atypical intensity distributions are seen for any fernandez T antigen (CD2, 3, 4+8, 5, 7). There is no increase in RX49-dwqklcig/CD3-n eg NK cells. Flow analysis is an ancillary study. A definite diagnosis requires correlation with the morphologic features of this process and if necessary, correlation with other ancillary studies like immunohistochemistr y, enzyme cytochemistry and/or cyto/ molecular genetics. This test was developed and its performance characteristics determined by the Clinical Flow Cytometry Laboratory at [facility]. It has not been cleared or approved [...] high complexity clinical laboratory testing. SPECIMEN PROCESSING [id number] Cells for immunophenotypic analysis were derived from [...] melanoma now with mediastinal lymphadenopathy, underwent bronchoscopy. [facility] 01/01/2023 1:50 PM EDT Cameron Decker MD PATHOLOGY/CYTOLO GY ORDERABLES [facility] [place] [address] * Immunophenotyping Flow Cytometry (01/01/2023 1:50 PM EDT) Immunophenotyping Flow See Comment [facility] Comment: When completed by the Pathologist, the Flow Cytometry Report ([id number]) will display under the Pathology Results section within eD. Other 01/01/2023 1:50 PM EDT 01/01/2023 3:07 PM EDT Narrative Resulting Agency Comment Spec In Lab Cameron Decker MD HEMATOLOGY ORDER MERI Performing Organization Address [facility] [place] [address] * Anaerobic Culture (01/01/2023 1:49 PM EDT) Anaerobic Culture No anaerobic organisms isolated [facility] Lymph Node 01/01/2023 1:49 PM EDT 01/01/2023 3:51 PM EDT Comment:Level 7 lymph node Narrative Resulting Agency Comment Spec In Lab Cameron Decker MD MICROBIOLOGY - G ENERAL ORDERABLES Performing Organization Address [facility] de Phone Number [facility] [place] [address] * (ABNORMAL) Tissue culture (01/01/2023 1:49 PM EDT) Tissue Culture Coagulase negative Staphylococcus species isolated from broth culture. Probable contaminant No growth on original plates. (A) [facility] Gram Stain Few Neutrophils seen No microorganisms seen. (A) [facility] Organism Coagulase negative Staphylococcus species(A) [facility] Lymph Node 01/01/2023 1:49 PM EDT 01/01/2023 3:51 PM EDT Comment:Level 7 lymph node Narrative Resulting Agency Comment Spec In Lab Cameron Decker MD MICROBIOLOGY - G ENERAL ORDERABLES Performing Organization Address [facility] Co de Phone Number [facility] [place] [address] * Non-Computer Forensics Analyst Final Report (01/01/2023 1:48 PM EDT) Diagnosis Discussion [id number] ? Location: [facility]; [facility]; A The signing pathologist has (i) examined the relevant preparation(s) for the specimen(s) and (ii) rendered or confirmed the diagnosis(es). . ? Non-Computer Forensics Analyst Final DIAGNOSIS Negative for Malignancy Electronically signed by: ?Marge Feldman MD Verified: ??01/06/2023 11:35 ??Pathologist Performed at: ??-[facility] Dept. of [place]ology, [place] [address] First Beater: Silviano Arias MD, FCAP, ??CLIA Certificate: [id number] DISCUSSION Lymph node, level 7 (EBUS-guided FNA): [...] Cell Block 1. 01/06/2023 11:35 AM EDT [facility] LYMPH NODE SPECIMEN / Unknown 01/01/2023 1:48 PM EDT 01/01/2023 1:48 PM EDT Cameron Decker MD PATHOLOGY/CYTOLO GY ORDERABLES Performing Organization Address City/[facility] Co de Phone Number [facility] [address] [place] [address] * Cytopathology Non-Gynecological (01/01/2023 1:48 PM EDT) AP Specimen 01/01/2023 1:48 PM EDT 01/01/2023 1:48 PM EDT Narrative [facility] - 01/01/2023 1:48 PM EDT Specimen requisition ordered. ??Separate Pathology report to follow Cameron Decker MD PATHOLOGY/CYTOLO GY ORDERABLES Performing Organization Address City/[facility] Co de Phone Number [facility] [place] [address] * EKG 12 Lead (01/01/2023 12:53 PM EDT) Ventricular rate 67 BPM MUSE SYSTEM Atrial Rate 67 BPM MUSE SYSTEM P-R Interval 150 ms MUSE SYSTEM QRS Duration 94 ms MUSE SYSTEM Q-T Interval 374 ms MUSE SYSTEM QTC Calculated (Bezet) 395 ms MUSE SYSTEM Calculated P [place] 28 degrees MUSE SYSTEM Calculated R [place] 26 degrees MUSE SYSTEM Calculated T [place] 10 degrees MUSE SYSTEM INTERPRETATION Normal sinus rhythm with sinus arrhythmia Normal ECG No previous ECGs available Confirmed by MD EMILY, BOBBY ([id number]) on 01/01/2023 3:58:07 PM MUSE SYSTEM 01/01/2023 12:5 3 PM EDT 01/01/2023 3:58 PM EDT Anjum Chiang MD ECG ORDERABLES MUSE SYSTEM * POCT Glucose (01/01/2023 12:40 PM EDT) Glucose, POC 103 65 - 199 mg/dL [facility] Comment: Supplemental ranges: <140 mg/dL before meals <180 mg/dL all other times of the day Blood 01/01/2023 12:4 0 PM EDT 01/01/2023 12:40 PM EDT Cameron Decker MD POINT OF CARE TE ST ORDERABLES Performing Organization Address City/[facility]/ZIP Co de Phone Number [facility] [place] [address] * Differential, Automated (01/01/2023 11:47 AM EDT) Neutrophil % 59.2 % [facility] Neutrophil Absolute 4.56 1.70 - 6.10 x10(3)/[facility] [address] LABORATORY Lymph % 26.3 % [facility] Lymphocytes Abs 2.0 0.9 - 3.2 x10(3)/[facility] [address] LABORATORY Monocyte % 10.3 % [facility] Monocyte Abs 0.8 0.3 - 0.9 x10(3)/[facility] [address] LABORATORY Eos % 3.4 % [facility] Eosinophils Abs 0.3 0.0 - 0.4 x10(3)/[facility] [address] LABORATORY Basophil % 0.4 % [facility] Baso Absolute 0.0 0.0 - 0.1 x10(3)/[facility] [address] LABORATORY Immature Gran % 0.40 % [facility] Comment: Immature granulocytes(IG's)percentage and absolute count will include metamyelocytes, myelocytes, and promyelocytes. Blood smears from CBCs yielding IG's will be scanned manually for concordance. If this scan disagrees with the automated IG or if promyelocytes are noted, a manual differential will be performed. Immature Gran Absolute 0.03 0.00 - 0.04 x10(3)/[facility] [address] LABORATORY Blood 01/01/2023 11:4 7 AM EDT 01/01/2023 11:53 AM EDT Narrative Resulting Agency Comment Spec In Lab Anjum Chiang MD HEMATOLOGY ORDERABLE S Performing Organization Address [facility] Co de Phone Number [facility] [place] [address] * Hemogram (01/01/2023 11:47 AM EDT) White Blood Cell 7.7 4.0 - 9.5 x10(3)/[facility] [address] LABORATORY Red Blood Cell 5.20 4.58 - 5.54 x10(6)/[facility] [address] LABORATORY Hemoglobin 15.8 13.7 - 16.5 g/dL [facility] Hematocrit 46.6 40.5 - 48.5 % [facility] Mean Cell Volume 89.6 82.9 - 93.1 fL [facility] Mean Cell Hemoglobin 30.4 27.5 - 32.1 pg [facility] Mean Cell Hemoglobin Concentration 33.9 32.0 - 35.7 g/dL [facility] Platelet 218 145 - 357 x10(3)/[facility] [address] LABORATORY RDW Standard Deviation 41.4 36.0 - 45.0 fL [facility] RDW coefficient of variation 12.6 11.4 - 13.8 % [facility] Mean Platelet Volume 9.8 7.6 - 12.9 fL [facility] NRBC% auto 0.0 % [facility] NRBC Absolute 0.000 0.000 - 0.000 x10(3)/[facility] [address] LABORATORY Blood 01/01/2023 11:4 7 AM EDT 01/01/2023 11:53 AM EDT Narrative Resulting Agency Comment Spec In Lab Anjum Chiang MD HEMATOLOGY ORDERABLE S Performing Organization Address [facility]/ZIP Co de Phone Number [facility] [place] [address] documented in this encounter Visit Diagnoses Diagnosis [...] subcutaneous injection 5,000 Units 5,000 Units, Subcutaneous, POWER HOUSE ENGINEER TO O.R., 1 dose, On Wed01/01/23 at [...] injection 5,000 Units (COMPLETED) 5,000 Units, Subcutaneous, POWER HOUSE ENGINEER TO O.R., 1 dose, On Wed01/01/23 at [...] Procedure) 1235 (New Bag - Prov ider: Chance Armstrong RN) documented in this encounter Care Teams Cotton Opener Relationship Specialty Start Date End Date Britt Bravo PA [address] [place] [id number] PCP - General Family Medicine 11/18/22 documented as of this encounter
--- OUTSIDE RECORDS SUMMARY | 2024-05-09 15:36 | XMS_ITS | Clinical Summary ---
Author Organization [facility] Address [address] [place] [address] Care Team Providers Care Geography Department Chair Name Role Phone Tay Espinal DO Primary Care Provider [phone] Social History Tobacco Use Types Packs/Day Years Used Date Smoking Tobacco: Never Assessed Interpersonal Safety Answer Date Record ed Physically Hurt Never 04/07/2020 Verbally Threaten Not on file 04/07/2020 Sex and Gender Information Value Date Recorded Sex Assigned at Not on file Gender Identity Not on file Sexual Orientation Not on file Plan of Treatment Health Maintenance Due Date Last Done Comments Hepatitis C Screen 1955 RSV Immunization ( o r 60+ Years) (1 - 1-dose 60+ series) 2016 Fall Risk Screening 2021 COVID-19 Vaccine (2022-24 season) 2023 Care Teams Geography Department Chair Relationship Specialty Start Date End Date Tay Espinal DO [address] [place] [address] PCP - General 04/28/13
--- OUTSIDE RECORDS SUMMARY | 2024-05-09 15:36 | XMS_ITS | Encounter Summary ---
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 Please allow time for your provider to receive these results and explore management options, if applicable. 09/25/2022 12:11 [facility] Final Diagnosis A. ESOPHAGUS AT 38 CM, BIOPSY: - Intestinal metaplasia consistent with Desouza esophagus. - Negative for dysplasia. B. ESOPHAGUS AT 36 CM, BIOPSY: - Intestinal metaplasia consistent with Desouza esophagus. - Indefinite for dysplasia. 09/25/2022 12:11 [facility] Attestation By the signature below, the attending physician certifies that they have 1) personally conducted a gross and/or microscopic examination of the described specimen(s), and/or personally interpreted the results of laboratory testing of the described specimen(s), and 2) personally rendered or confirmed the above diagnosis. 09/25/2022 12:11 [facility] at [address] Clinical History Desouza's esophagus, GERD 09/25/2022 12:11 [facility] Gross Description A. The specimen is received in formalin labeled with ? Diallo Boudle? and A? and ? esophagus at 38 cm? are 3 mucosal fragments that range in size from 0.1 x 0.1 x 0.1 cm up to 0.1 x 0.1 x 0.4 cm. The specimen is entirely submitted in 1 cassette. B. The specimen is received in formalin labeled with ? Diallo Boudle? and ? B? and ? esophagus at 36 cm? are 3 mucosal fragments that range in size from 0.1 x 0.1 x 0.2 cm up to 0.1 x 0.1 x 0.3 cm. The specimen is entirely submitted in 1 cassette. Mary Stevens 09/24/2022 11:56 09/25/2022 12:11 [facility] Performing Lab [facility] 09/25/2022 12:11 [facility] Scanned Images 09/25/2022 12:11 [facility] Tissue ENTIRE ESOPHAGUS / Unknown 09/23/2022 12:14 EST 09/24/2022 8:21 EST Tissue specimen (specimen) ESOPHAGEAL STRUCTURE / Unknown 09/23/2022 12:14 EST 09/24/2022 8:21 EST Angel Bermudez MD PATHOLOGY ORD ERABLES [facility] [address] [place] [address] documented in this encounter Visit Diagnoses Diagnosis 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
--- OUTSIDE RECORDS SUMMARY | 2024-05-09 15:36 | XMS_ITS | Referral Summary ---
Author Organization [facility] Address [address] [place] [address] Care Team Providers Care Office Spec Name Role Phone Tay Espinal DO Primary Care Provider [phone] Social History Tobacco Use Types Packs/Day Years Used Date Smoking Tobacco: Never Assessed Interpersonal Safety Answer Date Record ed Physically Hurt Never 04/07/2020 Verbally Threaten Not on file 04/07/2020 Sex and Gender Information Value Date Recorded Sex Assigned at Not on file Gender Identity Not on file Sexual Orientation Not on file Plan of Treatment Not on file Care Teams Office Spec Relationship Specialty Start Date End Date Tay Espinal DO [address] [place] [address] PCP - General 04/28/13
--- OUTSIDE RECORDS SUMMARY | 2024-05-09 15:36 | XMS_ITS | Encounter Summary ---
Author Organization [facility] Address [address] [place] [address] Care Team Providers Care Putty Mixer And Applier Name Role Phone Tay Nunez Primary Care Provider [phone] Encounter Details Date Type Department Care Team (Late st Contact Info) Description 03/31/2017 Results Only [facility] [phone] Mila Mckeon MD [address] [place] [address] Social History Tobacco Use Types Packs/Day Years Used Date Smoking Tobacco: Never Assessed Sex and Gender Information Value Date Recorded Sex Assigned at Not on file Gender Identity Not on file Sexual Orientation Not on file documented as of this encounter Plan of Treatment Not on file documented as of this encounter Procedures Procedure Name Priority Date/Time Associated Diagnosis Comments SURGICAL PATHOLOGY Routine 03/31/2017 17 :46 EDT documented in this encounter Results * SURGICAL PATHOLOGY (03/31/2017 17:46 EDT) Pathology Report: SURGICAL PATHOLOGY REPORT Reports generated via electronic interface contain original data; however they are lacking the format of the original report. Caution should be taken when reading/interpreting unformatted reports. Name: ? RADHALOREE NEGRONNIS ? Accession #: ? [id number] ? : ? 1955 (Age: 61) ??M ? Collect Date: ? 03/31/2017 ? Location: ? [facility] ? Receive Date: ? 04/01/2017 ? Provider: MILA MCKEON MD Copy to: TAY NUNEZ DO ? Final Pathologic Diagnosis: GALLBLADDER, CHOLECYSTECTOMY: - ?? Severe acute on chronic cholecystitis with marked reactive/ reparative change. See comment. - ?? Cholelithiasis. Comment: Additional section has been submitted in this case and well-business center representative sampling performed. Case reviewed at the intradepartmental GI consensus conference. Document reviewed and electronically signed by: PAULA CALVO MD Report ??Date: 04/08/2017 15:14 By the signature above, the attending physician certifies that he/she has personally conducted a gross and/or microscopic examination of the described specimens and rendered or confirmed the above diagnosis. Specimen(s) Received: Gallbladder Clinical History: Acute cholecystitis Gross Description: ? Received in formalin labelled with proper patient identification (initials B, D) and gallbladder is a previously disrupted gallbladder (9.5 x 3.0 x 1.2 cm) with a cystic duct (0.5 cm in length x 0.5 cm), inked black. ? The serosa is wild-purple roughened and ragged with multiple lacerations exposing the underlying mucosa. The gallbladder mucosa varies from estevez-pink to wild-purple, focally hemorrhagic and rough. The wall thickness varies from 0.1-0.5 cm. The cavity has multiple black-javier yellow multifaceted gallstones (3.2 x 2.7 x 0.7 cm). The cystic duct lumen is patent. The cystic duct margin, en face, and two cross sections are submitted in 1. KAMINI Lux (ASCP) 04/02/2017 11:17 AM Additional sections are submitted as 2-4. ??04/07/2017 End of Report [facility] 03/31/2017 17:4 6 EDT 04/01/2017 17:46 EDT Mila Mckeon MD PATHOLOGY ORDERABLES [facility] [address] [place] [id number] documented in this encounter Visit Diagnoses Not on filedocumented in this encounter Care Teams Putty Mixer And Applier Relationship Specialty Start Date End Date Tay Nunez DO [address] [place] [address] PCP - General 04/28/13 documented as of this encounter
--- OUTSIDE RECORDS SUMMARY | 2024-05-09 15:36 | XMS_ITS | Encounter Summary ---
Author Organization [facility] [place] [address] Care Team Providers Care Painter Barrel Name Role Phone El Thomas MD Primary Care Provider [phone] Encounter Details Date Type Department Care Team (Late st Contact Info) Description 10/08/2022 Telephone Dermatology at [facility] [address] [place] [address] Angel Dunn MD [address] [facility] [place] [address] Social History Tobacco Use Types Packs/Day Years Used Date Smoking Tobacco: Former Smokeless Tobacco: Never Sex and Gender Information Value Date Recorded Sex Assigned at Not on file Gender Identity Not on file Sexual Orientation Not on file documented as of this encounter Miscellaneous Notes * Telephone Encounter - Betty Maria - 10/08/2022 3:42 PM EST Left pt phone message with my direct # to call back to reschedule 11/16/22 appt. Sent my- message and mailed letter. documented in this encounter Plan of Treatment Not on file documented as of this encounter Visit Diagnoses Not on filedocumented in this encounter Care Teams Painter Barrel Relationship Specialty Start Date End Date El Thomas MD [address] [place], [place] [id number] PCP - General General Internal Medicine 11/19/2111/04 documented as of this encounter
--- OUTSIDE RECORDS SUMMARY | 2024-05-09 15:36 | XMS_ITS | Encounter Summary ---
Author Organization [facility] Address [facility] [address] Care Team Providers Care Sales And Marketing Intern Name Role Phone El Thomas MD Primary Care Provider Reason for Visit * Reason Comments Skin Check FSE Encounter Details Date Type Department Care Team (Late st Contact Info) Description 01/20/2019 9:00 AM EDT Office Visit Dermatology at [facility] [address] [place] [address] Meron Gilliam MD [facility] [address] [address] History of melanoma in situ; Skin tag; Seborrheic dermatitis; Seborrheic keratosis; Multiple benign nevi; Dermatofibroma; AK (actinic keratosis) Social History Tobacco Use Types Packs/Day Years Used Date Smoking Tobacco: Former Smokeless Tobacco: Never Sex and Gender Information Value Date Recorded Sex Assigned at Not on file Gender Identity Not on file Sexual Orientation Not on file documented as of this encounter Progress Notes * Meron Gilliam MD - 01/20/2019 9:00 AM EDT DERMATOLOGY OUTPATIENT CLINIC NOTE Date of service: 01/20/2019 Diallo J Neha : 1955 Provider: Meron Gilliam MD PROBLEM: FSE SKIN HISTORY: Prurigo Nodules Right lower back 07/25/2018 - At least melanoma in situ, suspicious for invasive melanoma with a Breslow depth of 0.3 millimeters s/p excision with 1cm margins. HPI Diallo Solomon is a 63 y.o. male. Patient is here today for a FSE. He states that he did have somesore spots under his left arm and on the side of his nose he feels a spot and it is tender where wepreviously froze something off he states. 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 Cat Dander ? ? Dust & Pollen Filter Mask [Facial Mask] ??? Hay Fever And Allergy Relief [Chlorpheniramine-Phenylpropan] ??? Oats ??? [place] CURRENT MEDICATIONS: Current Outpatient Medications Medication Sig Dispense Refill ??? pantoprazole (PROTONIX) 40 mg Tablet, Delayed Release (E.C.) 0 No current facility-administered medications for this visit. PROBLEM LIST: There is no problem list on file for this patient. ROS General: feeling well. Oriented X 3. Skin: denies other skin complaints EXAM General: NAD, pleasant, cooperative Skin: The patient was asked to disrobe to the level of their comfort. Full skin examination of the scalp, hair, head, face, neck, back, chest, abdomen, right and left upper extremities, right and left lower extremities and buttocks was normal with the exception of the findings listed below. Genitals were examined Significant skin findings: -right lower back well healed scar with no ulceration or re pigmentation -Flesh colored papules in the axilla -pink scaly patch on the central chest -Right zygoma extending to the right lateral canthus. 2.2 cm x 1.5 cm plaque. 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 -NER Skin Tags - Discussed benign nature of lesion and provided reassurance - No treatment necessary at this time -irritation can be caused by them twisting Seborrheic Dermatitis -recommended OTC anti dandruff shampoo to help with the flaking -does not bother the patient, no treatment needed today Seborrheic keratosis: unchagend since last visit -continue to monitor Benign Appearing Nevi: - Reassurance, discussed importance of ABCDE's and monthly self exams Dermatofibroma (DF), left medial leg (nonsypmtomatic) - Discussed benign nature of lesion and provided reassurance - No treatment necessary at this time - Observe skin for change in color, size or character. Call if such occur Actinic Keratosis Left nasal facial sulcus - Counseled: AKs, risk for progression to SCCs, and treatment options, including observation, cryotherapy, and 5-Fluorouracil. Answered all questions. - Joint decision made to treat today with LN2 Procedure Note: Procedure: Destruction of lesion(s) with cryotherapy. Number: 1 Location: as above Discussed procedure and expectations including risks (including risk of hypopigmentation) and benefits. Verbal consent obtained. Frozen with LN2, 15-30 second thaw time, TWICE. There were no complications; the patient tolerated the procedure well. Post-procedure expectations and wound care were reviewed. RTC - 3 months for FSE Note initiated and routed to physician for review and change by: Tena Han [facility], Tena Han, have performed the documentation for this encounter [...] documentation. Meron Gilliam MD Section of Dermatology [facility] documented in this encounter Plan of Treatment Not on file documented as of this encounter Visit Diagnoses Diagnosis History of melanoma in situ Personal history of malignant melanoma of skin Skin tag Unspecified hypertrophic and atrophic condition of skin Seborrheic dermatitis Seborrheic dermatitis, unspecified Seborrheic keratosis Other seborrheic keratosis Multiple benign nevi Benign neoplasm of skin, site unspecified Dermatofibroma Benign neoplasm of skin, site unspecified AK (actinic keratosis) Actinic keratosis documented in this encounter Care Teams Sales And Marketing Intern Relationship Specialty Start Date End Date El Thomas MD PCP - General 07/29/10 11/18/21 documented as of this encounter
--- OUTSIDE RECORDS SUMMARY | 2024-05-09 15:36 | XMS_ITS | Encounter Summary ---
Author Organization [facility] Address [facility] [place] [address] Care Team Providers Care Van Helper Name Role Phone El Thomas MD Primary Care Provider Encounter Details Date Type Department Care Team (Late st Contact Info) Description 11/17/2022 Ancillary Procedure [place] [address] Britt Bravo PA [address] [address] Social History Tobacco Use Types Packs/Day Years [...] Diagnosis Comments FILM LIBRARY STORAGE ONLY CT CHEST Routine 11/17/2022 12:00 AM EDT documented in this encounter Results * Film Library- Storage Only CT Chest (11/17/2022 12:00 AM EDT) Narrative OLIVER - 11/25/2022 9:44 PM EDT This exam is auto-finalizing. It's purpose is for storage only. Britt GARCIA FILM LIBRARY ORD ERABLES [place], [place] documented in this encounter Visit Diagnoses Not on filedocumented in this encounter Care Teams Van Helper Relationship Specialty Start Date End Date El Thomas MD [address] [place] [address] PCP - General General Internal Medicine 11/19/2111/04 documented as of this encounter
--- OUTSIDE RECORDS SUMMARY | 2024-05-09 15:36 | XMS_ITS | Encounter Summary ---
Author Organization [facility] Address [address] [place] [address] Care Team Providers Care Piece Goods Packer Name Role Phone Tay Espinal DO Primary Care Provider [phone] Encounter Details Date Type Department Care Team (Late st Contact Info) Description 10/03/2018 Results Only [facility] [phone] Taylor Merritt MD [address] [place] [address] Social History Tobacco Use Types Packs/Day Years Used Date Smoking Tobacco: Never Assessed Sex and Gender Information Value Date Recorded Sex Assigned at Not on file Gender Identity Not on file Sexual Orientation Not on file documented as of this encounter Plan of Treatment Not on file documented as of this encounter Procedures Procedure Name Priority Date/Time Associated Diagnosis Comments SURGICAL PATHOLOGY Routine 10/03/2018 15 :56 EST documented in this encounter Results * SURGICAL PATHOLOGY (10/03/2018 15:56 EST) Pathology Report: SURGICAL PATHOLOGY REPORT Reports generated via electronic interface contain original data; however they are lacking the format of the original report. Caution should be taken when reading/interpret ing unformatted reports. Name: ? DIALLO SOLOMON ? Accession #: ? [id number] ? : ? 1955 (Age: 63) ??M ? Collect Date: ? 10/03/2018 ? Location: ? [facility] ? Receive Date: ? 10/04/2018 ? Provider: TAYLOR MERRITT MD Copy to: ? Final Pathologic Diagnosis: A. ECHEVARRIA'S ESOPHAGUS, BIOPSY: - ??Columnar mucosa with intestinal metaplasia. - ??Focal atypia, indefinite for low-grade dysplasia, favored reparative/ reactive. - ??Scant, adjoining squamous mucosa with features of reflux esophagitis. Document reviewed and electronically signed by: PAULA CALVO MD Report ??Date: 10/06/2018 12:10 By the signature above, the attending physician certifies that he/she has personally conducted a gross and/or microscopic examination of the described specimens and rendered or confirmed the above diagnosis. Specimen(s) Received: Bxs Echevarria's esophagus Clinical History: History Echevarria's, screening; clinical diagnosis codes: K22.70, Z86.010, Z12.211 Gross Description: ? Received in formalin labelled with proper patient identification (initials B, D) and BXs of Echevarria's esophagus are three estevez-white tissues (0.2 x 0.2 x 0.1 cm to 0.3 x 0.2 x 0.1 cm). Submitted in toto in 1. KAMINI King (ASCP) 10/04/2018 4:22 PM End of Report [facility] 10/03/2018 15:5 6 EST 10/04/2018 15:56 EST Taylor Merritt MD PATHOLOGY ORDERABLES [facility] [address] [place] [address] documented in this encounter Visit Diagnoses Not on filedocumented in this encounter Care Teams Piece Goods Packer Relationship Specialty Start Date End Date Tay Espinal DO [address] [place] [address] PCP - General 04/28/13 documented as of this encounter
--- OUTSIDE RECORDS SUMMARY | 2024-05-09 15:36 | XMS_ITS | Encounter Summary ---
Author Organization [facility] Address [facility] [place] [address] Care Team Providers Care Occupational Therapist Home Based Name Role Phone El Thomas MD Primary Care Provider [phone] Reason for Visit * Reason Comments Skin Lesion * Consultation (Routine) - Closed Specialty Diagnoses / Procedures Referred By Contac t Referred To Contact Dermatology Diagnoses ACTINIC KERATOTIS NEOPLASM OF UNCERTAIN BEHAVIOR Britt Bravo PA [address] [place] [id number] [facility] [address] [place] [address] Referral ID Status Reason Start Date Expiration Date V isits Requested Visits Authorized [id number] Closed Consult, Test & Treat Connection [facility] 04/28/2018 04/28/2019 1 1 Encounter Details Date Type Department Care Team (Late st Contact Info) Description 07/15/2018 3:30 PM EST Office Visit Dermatology at [facility] [address] [place] [phone] [facility] [address] [address] Neoplasm of uncertain behavior; Actinic keratoses; Prurigo nodularis Social History Tobacco Use Types Packs/Day Years Used Date Smoking Tobacco: Former Smokeless Tobacco: Never Sex and Gender Information Value Date Recorded Sex Assigned at Not on file Gender Identity Not on file Sexual Orientation Not on file documented as of this encounter Patient Instructions * Patient Instructions* Sury Morales - 07/15/2018 3:30 PM EST 07/15/2018 Instructions for Diallo Solomon: Treatment and Wound Care Instructions Your treatment today: You have had a shave biopsy of your skin, which is a removal of tissue for examination under a microscope. This wound will heal without stitches. Allow 3-6 weeks for the wound to heal. If bleeding occurs, hold firm pressure against the wound for 15 minutes. If bleeding continues, calls the office or go to your local emergency room. Please allow 1-2 weeks for the biopsy results to return. Your physician or nurse will contact you with the results by phone or letter; follow-up will be discussed at that time. Wound Care Instructions: You will need to keep the dressing placed over the wound dry and intact for 24 hours. Afterwards, perform the following wound care daily: ?? Wash your hands before changing the dressing. ?? Remove the bandage and clean the area with mild soap and water, then gently pat the area dry. ?? Apply a small amount of Vaseline to the area, then cover the wound with a band-aid. Change your dressing daily until the wound is fully healed. ?? A small amount of yellow drainage is part of normal healing. The area might appear as a small depression with redness around the edge of the wound. This is normal. ?? Please contact the office you you notice any of the following signs of infection: increased tenderness, pain, drainage, or redness that becomes hot or hard around the wound. If you have further questions or concerns, please call the office at [phone]. If it is after 5PM, or a holiday or weekend, please call [phone] and ask for the Rehab Office Coordinator on-call. documented in this encounter Progress Notes * Meron Gilliam MD - 07/15/2018 3:30 PM EST Images from the original note were not included. DERMATOLOGY OUTPATIENT CLINIC NOTE Date of service: 07/15/2018 Diallo Solomon : 1955 Provider: Meron Gilliam MD PROBLEM: skin lesion SKIN HISTORY: None HPI Diallo Solomon is a 62 y.o. male. He is a new pt to me and the clinic. He comes to the clinic for a few spot she is looking to have evaluated. Spots on the face that are sore. He has an area on the right forearm. He states he had got an allergic reaction and he scratched it and now it will not heal. The area on the back comes as a sore and will bleed and go away and return will not heal. - Preferred pharmacy - [id number] - [place], [place] Social History: Self Employed Contractor building houses. Wears a shirt when working now, used to work without in the past Family History: none ADR: Allergies not on file CURRENT MEDICATIONS: Current Outpatient Medications Medication Sig [...] disrobe to the level of their comfort. Examination of skin from the waist up was performed. This includes examination of the skin of the face, ears, neck, chest, axillae, left and right upper extremities, hands, back, and abdomen. Significant skin findings: -Right lower back: 8 x 3mm irregular brown macule. [Figure A] -Right lutheran x2, left malar cheek x2, left nasal sidewall x1: pink gritty papules. -Right dorsal forearm x1 & right upper back x1: excoriated papules. Images Photo taken and charted with patient consent [Figure A] ASSESSMENT/PLAN Neoplasm of the Skin DDx: Atypical Nevus vs Melanoma Procedure: Skin biopsy by shave technique Time of procedure: 3:58 pm Location: Right lower back [Figure A] Discussed indications for procedure and expectations including [...] restrictions were reviewed. Follow-up based on pathology results. Actinic Keratoses Procedure Note: Procedure: Destruction of lesions with cryotherapy. Number: 5 Location: as above Discussed procedure and expectations including risks (including risk of hypopigmentation) and benefits. Verbal consent obtained. Frozen with LN2, 15-30 second thaw time, TWICE. There were no complications; the patient tolerated the procedure well. Post-procedure expectations and wound care were reviewed. Prurigo Nodules Procedure Note: Procedure: Destruction of lesions with cryotherapy. Number: 2 Location: as above Discussed procedure and expectations including risks (including risk of hypopigmentation) and benefits. Verbal consent obtained. Frozen with LN2, 15-30 second thaw time, TWICE. There were no complications; the patient tolerated the procedure well. Post-procedure expectations and wound care were reviewed. Follow up: based on pathology results. Otherwise July 2019 for 1 year full skin exam, or sooneras needed. Note initiated and routed to physician for review and change by: JALIL WORKMAN LPN I, Sury Morales, have performed the documentation for this encounter [...] documentation. Meron Gilliam MD Section of Dermatology [facility] * Meron Gilliam MD - 07/15/2018 3:30 PM EST Lalo Cruz, Called this patient with results - he will need wide local excision in the next 4-6 weeks. Can you please schedule him with any provider? Thanks Meron Gilliam MD Skin, right lower back, shave biopsy: - At least melanoma in situ (see discussion and below) - Suspicious for invasive melanoma with a Breslow depth of 0.3 millimeters, not ??ulcerated, with regression documented in this encounter Plan of Treatment Not on file documented as of this encounter Procedures Procedure Name Priority Date/Time Associated Diagnosis Comments SPECIMEN TO PATHOLOGY Routine 07/15/2018 4:32 PM EST Neoplasm of uncertain behavior SURGICAL PATHOLOGY REPORT Routine 07/15/2018 3:58 PM EST documented in this encounter Results * Specimen to Pathology (07/15/2018 4:32 PM EST) AP Specimen 07/15/2018 4:32 PM EST 07/15/2018 6:12 PM EST Narrative [facility] - 07/15/2018 6:13 PM EST Specimen requisition ordered. ??Separate Pathology report to follow Resulting Agency Comment Spec In Lab Meron Gilliam MD PATHOLOGY/CYTOLOG Y ORDERABLES Performing Organization Address [facility]/State/[facility] Co de Phone Number [facility] [place] [address] * Surgical Pathology Report (07/15/2018 3:58 PM EST) Final Diagnosis [id number] ? Location: [facility] The signing pathologist has (i) examined the relevant preparation(s) for the specimen(s) and (ii) rendered or confirmed the diagnosis(es). . ?Surgical Pathology DIAGNOSIS Skin, right lower back, shave biopsy: - At least melanoma in situ (see discussion and below) - Suspicious for invasive melanoma with a Breslow depth of 0.3 millimeters, not ulcerated, with regression and the following features: Specimen ? Procedure: ??Biopsy, shave Tumor ? Tumor Site: ??Skin of trunk - lower back ? Histologic Type: ?? Melanoma, not otherwise classified ? Maximum Tumor (Breslow) Thickness: ?At least 0.3 Millimeters (mm) ?There is extensive regression. Both melanoma and regression are at the ? margins. A more complete assessment may be done upon receipt of the ? entire lesion. ? Tumor Extent ?Macroscopic Satellite Nodule(s): ?? Not identified ?Ulceration: ??Not identified ? Accessory Findings ?Mitotic Rate: ?? None identified ?Microsatellite(s): ?? Not identified ?Lymphovascular Invasion: ?? Not identified ?Neurotropism: ?? Not identified ?Tumor Regression: ?? Present ? Margins ?Peripheral Margins: ?? Cannot be assessed - Regression and melanoma in situ ? both involve the peripheral margins. A comprehensive assessment of the ? extent of the invasive component may be done on receipt of the entire ? lesion. ?Deep Margin: ??Uninvolved by invasive melanoma [facility] April 2018 Release Electronically signed by: ??Yo Jerez MD Verified: ??07/22/2018 ?Dermatopathologist Performed at: ??-[facility] Dept. of Pathology, [place], [place] DISCUSSION The provisional TNM classification would be pT1a Nx Mx. The biopsy has melanoma in situ (MIS), features suspicious for regression, and multiple disparate areas with atypical melanocytes in the dermis. In context, the findings cause suspicion for invasion with regression. The lesion is at the peripheral margin and thus a portion is not available here. A more complete assessment can be done upon receipt of the entire lesion. MICROSCOPIC DESCRIPTION Examination of multiple levels of the biopsy reveals a broad, compound, markedly asymmetrical melanocytic proliferation. ??There are significant differences in the morphology of the successive cross-sections examined. ??The junctional component is broad, somewhat lentiginous, and has regions of significant pagetoid spread, as confirmed by interpretation of a Melan-A stain. Occasional nests at the junction are noted. ??The intraepidermal melanocytes have moderate to abundant cytoplasm, enlarged . DISCUSSION nuclei, smudged chromatin, thick nuclear membranes, and discernible nucleoli. ??The immediately underlying dermis has extensive fibrosis with dense, patchy, irregularly distributed inflammation near the junction. ??The rete lengths are largely preserved. There are vertically oriented capillaries with marketed fibrosis and horizontally oriented fibroblasts. Melanophages are concentrated at the junction of the papillary and reticular dermis. ??In that vicinity, deep to the fibrosis, small threadlike elastic fibers are somewhat concentrated, as confirmed by interpretation of an elastic fiber stain. Embedded in the associated fibrosis, 0.3 mm deep to the granular layer, there are multiple foci of melanocytes. A single focus of melanocytes is 0.4 mm deep to the granular layer, located within a sweat duct, as confirmed by examination of that section in conjunction with multiple adjacent cross sections. Many of these are well-, seen in multiple foci, that do not appear contiguous, in multiple cross sections. In these areas, some of the dermal melanocytes are enlarged, with significantly increased cytoplasm and enlarged nuclei. Some of the nuclei have irregular nuclear contours, dense chromatin, and discernible nucleoli. A single, somewhat large, nest of melanocytes is present close to, but not directly involving, the peripheral specimen edge. It is embedded in the associated fibrosis. ??The cytologic features reveals nuclear membranes with multiple indentations, variation in the distribution of the chromatin, and some discernible nucleoli. Separately, the fibrosis and the intraepidermal melanocyte population involve the peripheral margin. ADDITIONAL STUDIES This case was also reviewed by an additional intradepartmental dermatopathologist for consensus diagnosis. Interpretation of multiple step-leveled slide sections confirms the diagnosis above. ??Interpretation of an EVG stain and three Melan-A stains taken at different levels support the assessment above. ??The spindled cells in the dermis do not express Sox-10. Aspects of this case were communicated to the treating clinician by email on 2017. CLINICAL INFORMATION Specimen Submitted: A - Skin, right lower back, shave biopsy (1) Clinical History and Diagnosis: 8 x 3 mm irregular brown macule. DX: Atypical nevus vs melanoma SPECIMEN PROCESSING A - Labeled/Fixative: Right lower back, formalin. Quantity/Size: ??Single, 1.2 x 0.8 x 0.1 cm. Tissue Description: Shave of white skin with a 0.9 x 0.4 cm brown macule. Sections/Processing: Inked, quadrisected and entirely submitted in 1 cassette labeled A1. 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
--- OUTSIDE RECORDS SUMMARY | 2024-05-09 15:36 | XMS_ITS | Encounter Summary ---
Author Organization [facility] Address [facility] [place] [address] Care Team Providers Care Sole Blacker Name Role Phone El Thomas MD Primary Care Provider [phone] Encounter Details Date Type Department Care Team (Late st Contact Info) Description 09/01/2018 Telephone Dermatology at [facility] [address] [place] [phone] Darrick Kerr MD [facility] [place] [address] Social History Tobacco Use Types Packs/Day Years Used Date Smoking Tobacco: Former Smokeless Tobacco: Never Sex and Gender Information Value Date Recorded Sex Assigned at Not on file Gender Identity Not on file Sexual Orientation Not on file documented as of this encounter Miscellaneous Notes * Telephone Encounter - Qi Goyal MD - 09/07/2018 6:56 PM EST 09/07/2018 I spoke with the patient and discussed the following: Surgical Pathology DIAGNOSIS Skin, right lower back, excision: - Negative for residual melanoma - ??Reparative changes consistent with previous operative site Electronically signed by: ??Yo Jerez MD Verified: ??08/29/2018 ?Dermatopathologist Performed at: ??-[facility] Dept. of Pathology, [place], [place] No residual melanoma, no further surgical intervention required. Given that the patient had a probable invasive melanoma 0.3mm, we will have to see the patient for full skin exam every 3 months for the next year. - discussed the importance of frequently monitoring for spots that change, which include the ABCEs of melanoma features: asymmetry, irregular border, dark or changing colour, and evolution (increasing in size/diameter). If the patient noticed any of these features, in addition to bleeding, the patient was instructed to call us for a re-evaluation - discussed the importance of sun protection/avoidance, to use SPF30+ sunscreen with reapplication at least q3hr if in the sun, or wear sun-protective clothing with UPF ratings. - discussed w/ pt that up to 50% of melanoma arise from pre-existing nevi, while the other 50% arise de ana - recommended wearing broad-brimmed hat RTC next few weeks for FBSE, then q3mo thereafter. Qi Goyal MD Resident in Dermatology [facility] Pager [phone] * Telephone Encounter - Autumn Moya - 09/01/2018 3:13 PM EST Diallo contacted the clinic this afternoon inquiring about pathology results from his recent procedure. Please give him a call back at [phone]. documented in this encounter Plan of Treatment Not on file documented as of this encounter Visit Diagnoses Not on filedocumented in this encounter Care Teams Sole Blacker Relationship Specialty Start Date End Date El Thomas MD PCP - General 07/29/10 11/18/21 documented as of this encounter
--- OUTSIDE RECORDS SUMMARY | 2024-05-09 15:36 | XMS_ITS | Encounter Summary ---
Author Organization [facility] Address [facility] [place] [address] Care Team Providers Care Dramatic Teacher Name Role Phone Britt Bravo Primary Care Provider [phone] Reason for Referral * Consultation (Routine) - Closed Specialty Diagnoses / Procedures Referred By Contac t Referred To Contact General Surgery Diagnoses Femoral hernia with obstruction without gangrene, recurrence not specified, unspecified laterality Sushant Maldonado MD [facility] [place] [address] [facility] Gen Surgery [address] [place] [phone] Referral ID Status Reason Start Date Expiration Date V isits Requested Visits Authorized [id number] Closed Consult, Test & Treat 12/29/2022 12/29/2023 1 1 Reason for Visit * Reason Comments Advice Only Adenopathy * Consultation (Urgent) - Closed Specialty Diagnoses / Procedures Referred By Contac t Referred To Contact Thoracic Surgery Diagnoses Mediastinal lymphadenopathy Mediastinal lymphadenopathy Britt Bravo PA [address] [place] [id number] [facility] Thoracic Surg [address] [place] [phone] Referral ID Status Reason Start Date Expiration Date V isits Requested Visits Authorized [id number] Closed Consult, Test & Treat PCP Updated and/or Approved 11/18/2022 11/18/2023 6 6 Encounter Details Date Type Department Care Team (Late st Contact Info) Description 12/29/2022 11:00 AM EDT Office Visit [place] [phone] [facility] [place] [address] Malignant melanoma, unspecified site; Mediastinal adenopathy; Femoral hernia with obstruction without gangrene, recurrence not specified, unspecified laterality Social History Tobacco Use Types Packs/Day Years Used Date Smoking Tobacco: Former Cigarettes 2 1 2 - 1992 Smokeless Tobacco: Never Tobacco Cessation:Counseling [...] Sign Reading Time Taken Comments Blood Pressure 143/84 12/29/2022 11:07 AM EDT Pulse 61 12/29/2022 11:07 AM EDT Temperature 36.6 ??C (97.9 ??F) 12/29/2022 1 1:07 AM EDT Respiratory Rate 18 12/29/2022 11:0 7 AM EDT Oxygen Saturation 96% 12/29/2022 11: 07 AM EDT Inhaled Oxygen Concentration - - Weight 91.1 kg (200 lb 13.4 oz) 023 11:07 AM EDT Height 177.8 cm (5' 10) 12/29/2022 11: 07 AM EDT Body Mass Index 28.82 12/29/2022 11:07 AM EDT documented in this encounter Patient Instructions * Patient Instructions* Coral Campbell, RN - 12/29/2022 11:00 AM EDT Thank you for visiting Dr. Maldonado in clinic 12/29/22 Dr. Maldonado would like to schedule you for your Bronchoscopy with Endobronchial Ultrasound. Your procedure is scheduled for 01/01/2023. You will receive a phone call from the OR nurses on 12/31/2022 after 2pm through 6 pm. They will confirm your arrival time, review what medications to take and when to stop eating and drinking. Your procedure will occur in senior receptionist area 4W. Bronchoscopy is the term for a procedure in which a scope (thin tube with a light source on the end), is placed through your mouth or nose and into your trachea and large airways. A small amount of tissue from the surface of the area is removed. The removal of the tissue is called a biopsy. Endobronchial Ultra Sound or EBUS, is a procedure used to diagnose and stage lung cancer. It is done using a flexible camera, called a bronchoscope that is passed down through the mouth, into the lung. The device is able to take pictures, samples of tissue and fluids, as well as inspect nearby lymph nodes. This is a less invasive alternative to some surgeries. You may cough up some sputum and this sputum may have some blood noted. The blood may be dark in color and this can be common for a couple days after your surgery. If this blood is bright red in color (like the skin of a tomato) please call the office at [phone]. You may also have a dry cough after surgery. This may last a few days to a few weeks. Please make sure that you are drinking and staying hydrated. You may take some cough drops or over the counter cough medicine. Please call the office if you have any questions or concerns. Please call Thoracic Surgery at [phone] with any questions or concerns. Exercise each day for 30 minutes or longer. Daily aerobic exercise for at least 30 minutes will help improve your endurance and improve the breathing capacity of your lungs. This means that you are breathing hard, your heart is beating fast and that you are sweating. Examples of this include walking, biking, swimming, and using a treadmill or stationary bike. Please call Thoracic surgery at with any questions or concerns. documented in this encounter Progress Notes * Sushant Maldonado MD - 12/29/2022 11:00 AM EDT Images from the original note were not included. Thoracic Surgery Attending Outpatient Consultation Note MD Teagan Stevens PA-C [place] [phone] FAX: Date of Consultation: 12/29/2022 This consultation has been requested by PCP: KAMINI Ng Referring Physician: KAMINI King Purpose for Consultation: Mediastinal lymphadenopathy HPI: Patient is a 67-year-old male with PMHx malignant melanoma in situ (0.3 mm) s/p excision, GERD, Desouza's esophagus (last EGD 2 months ago), TIA (2019, residual right vision loss), chronic thoracic spine pain, right femoral hernia s/p repair, and cholecystectomy referred for possible biopsy after recent CT Chest revealed multiple enlarged right paratracheal, subcarinal, and bilateral hilar nodes. He notes an increase in fatigue over the past few months. Has some bilateral chest wall pain since fall 8 months ago, improving with physical therapy. Does not follow a formal exercise regimen, but walks regularly. Former smoker, 42 pack year history, quit 1992. He denies dyspnea, dyspnea on exertion, cough, hemoptysis, wheeze, chest pain, fever, chills, nausea, vomiting, dysphagia, weight loss. Past Medical History: Patient Active Problem List Diagnosis Date Noted ??? Gastroesophageal reflux 12/29/2022 ??? 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 Chronic back pain 12/29/2022 ??? Melanoma 12/29/2022 ??? Mediastinal adenopathy 12/29/2022 ??? Femoral hernia 11/19/2019 Past Medical History: Diagnosis Date ??? GERD (gastroesophageal reflux disease) Past Surgical History: Past Surgical History: Procedure Laterality Date ??? CHOLECYSTECTOMY, LAPAROSCOPIC c/b deep space infection requiring IR drainage ??? INGUINAL HERNIA REPAIR Right ??? SKIN CANCER EXCISION Right lower right back Medications: Outpatient Medications Marked as Taking for the 12/29/22 encounter (Office Visit) with Tay Maldonado MD Medication Sig Dispense Refill ??? cholecalciferol, Vitamin D3, (Vitamin D) 25 mcg (1,000 unit) Capsule Take 1,000 Units by mouth daily. ??? ascorbic acid, Vitamin C, (vitamin C) 500 mg tablet Take 500 mg by mouth daily. ??? MGSQWLL-MZXSLYMSR-DRDZ ORAL Take 1 tablet by mouth daily. ??? glucosamine/msm/chondrt/C/hyal (JZXZCEYSCCF-LARCTOBJXBF-UAR ORAL) Take 1 tablet by mouth daily. ??? aspirin EC 81 mg EC (DR) tablet Take 81 mg by mouth daily. ??? [DISCONTINUED] vit C/E/Zn/coppr/lutein/zeaxan (PRESERVISION AREDS-2 ORAL) Take 1 tablet by mouth daily. ??? pantoprazole (PROTONIX) 40 mg Tablet, Delayed Release (E.C.) Take 40 mg by mouth daily. 0 Allergies: Allergies Allergen Reactions ??? Cat Dander ? ? Dust & Pollen Filter Mask [Facial Mask] ??? Hay Fever And Allergy Relief [Chlorpheniramine-Phenylpropan] ??? Oats ??? [place] Family History: Family History Problem Relation Age of Onset ??? Myocardial Infarction Mother 80 ??? Heart Disease Father ??? Hypertension Father ??? Diabetes Father ??? Arthritis Brother ??? Cancer Paternal Grandmother type unknown ??? Breast Cancer Paternal Aunt Social History: Social History Socioeconomic History ??? Marital status: Spouse name: Not on file ??? Number of children: Not on file ??? Years of education: Not on file ??? Highest education level: Not on file Occupational History ??? Not on file Tobacco Use ??? Smoking status: Former Packs/day: 2.00 Years: 21.00 Pack years: 42.00 Types: Cigarettes Start date: 1971 Quit date: 1992 Years since quittin.3 ??? Smokeless tobacco: Never Vaping Use ??? Vaping Use: Never used Substance and Sexual Activity ??? Alcohol use: Not Currently Comment: quit 16 years ago ??? Drug use: Not Currently Types: Marijuana ??? Sexual activity: Not on file Other Topics Concern ??? Not on file Social History Narrative ??? Not on file Social Determinants of Health Financial Resource Strain: Not on file Food Insecurity: Not on file Transportation Needs: Not on file Physical Activity: Not on file Housing Stability: Not on file REVIEW OF SYSTEMS: General: Positive for fatigue. Denies weight loss, chills, night sweats. Neuro: History of TIA (2020). Denies seizure, CVA, FERNANDEZ, visual changes, diplopia, weakness/numbness in extremities. Psychiatric: Denies psychiatric diagnoses. Cardiovascular: Denies arrythmias, CAD, HTN, family history of cardiac disease, CHF, hyperlipidemia. Respiratory: History of childhood asthma, resolved. Denies COPD, emphysema, cough, dyspnea, wheezing, stridor, hemoptysis, respiratory infection, TB or exposure to TB. GI: Denies change in bowel habits. : Denies change in voiding habits. Hematologic: Denies history of DVT, PE. Endocrine: History of prediabetes. Denies thyroid disease. Musculoskeletal: Denies fractures, arthritis. Integument: History of melanoma s/p excision. Physical Exam: BP 143/84 (Patient Position: Sitting) Pulse 61 Temp 36.6 ??C (97.9 ??F) (Temporal) Resp 18 Ht 177.8 cm (5' 10) Wt 91.1 kg (200 lb 13.4 oz) SpO2 96% BMI 28.82 kg/m?? General Appearance: Alert, pleasant, no distress, appears stated age HEENT: PERRL, MMM, non-icteric, EOMI Neck: Supple, symmetrical, trachea midline, no palpable cervical or supraclavicular adenopathy; thyroid: not enlarged, symmetric, no tenderness/mass/nodules Lungs: Clear to auscultation, respirations unlabored, no wheezes, crackles or ronchi. Heart: Regular rate and rhythm, S1 and S2 normal, no murmur, rub, or gallop Abdomen: Soft, non-tender, bowel sounds normo-active in all four quadrants, no masses, no organomegaly Extremities: Extremities normal, no cyanosis, clubbing. No edema Neurologic: A+Ox3, cranial nerves II-XII grossly intact Musculoskeletal: 5/5 throughout with normal gait Incisions/Wounds: Well healed surgical scar right lower back Diagnostics: I have independently visualized all relevant imaging studies, including: CT Chest (11/17/22): Assessment: This is a 67 y.o. male with PMHx malignant melanoma in situ (0.3 mm) s/p excision referred for multiple enlarged right paratracheal, subcarinal, and bilateral hilar nodes on recent CT Chest. Unlikely to be related to MIS given minimal depth, more likely sarcoidosis or another inflammatory process. Plan of Management: 1. Patient consented today for bronchoscopy and EBUS with biopsy of his lymph nodes. Patient aware of the risks and benefits for surgery. Patient willing to proceed. Samples to be sent for cytology, flow cytometry, and culture. Tentatively planned for OR on 01/[address] Shelby. 2. 30 minutes of aerobic exercise daily, at minimum. Discussed importance of this prior to and during treatment. 3. Call with any questions KAMINI Harmon 12/29/22 Thoracic Surgery I have seen the patient and reviewed the PA/resident's above history and I agree with the details as written. The assessment and plan were formulated in discussion with me and I agree with them as documented. Assessment: This is a 67 y.o. male with PMHx malignant melanoma in situ (0.3 mm) s/p excision with multiple enlarged right paratracheal, subcarinal, and bilateral hilar nodes on recent CT Chest. Unlikely to be related to melanoma given minimal depth of invasion, more likely sarcoidosis or another benign process. Plan of Management: 1. Patient consented today for bronchoscopy and EBUS with biopsy of his lymph nodes. Patient aware of the risks and benefits for surgery. Patient willing to proceed. Samples to be sent for cytology, flow cytometry, and culture. Tentatively planned for OR on 01/[address] Shelby. 2. 30 minutes of aerobic exercise daily, at minimum. Discussed importance of this prior to and during treatment. 3. Call with any questions SUSHANT MALDONADO MD documented in this encounter H&P Notes * Sushant Maldonado MD - 12/29/2022 11:00 AM EDT Images from the original note were not included. Thoracic Surgery Attending Outpatient Consultation Note MD Teagan Stevens PA-C [place] [phone] FAX: Date of Consultation: 12/29/2022 This consultation has been requested by PCP: KAMINI Ng Referring Physician: KAMINI King Purpose for Consultation: Mediastinal lymphadenopathy HPI: Patient is a 67-year-old male with PMHx malignant melanoma in situ (0.3 mm) s/p excision, GERD, Desouza's esophagus (last EGD 2 months ago), TIA (2019, residual right vision loss), chronic thoracic spine pain, right femoral hernia s/p repair, and cholecystectomy referred for possible biopsy after recent CT Chest revealed multiple enlarged right paratracheal, subcarinal, and bilateral hilar nodes. He notes an increase in fatigue over the past few months. Has some bilateral chest wall pain since fall 8 months ago, improving with physical therapy. Does not follow a formal exercise regimen, but walks regularly. Former smoker, 42 pack year history, quit 1992. He denies dyspnea, dyspnea on exertion, cough, hemoptysis, wheeze, chest pain, fever, chills, nausea, vomiting, dysphagia, weight loss. Past Medical History: Patient Active Problem List Diagnosis Date Noted ??? Gastroesophageal reflux 12/29/2022 ??? 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 Chronic back pain 12/29/2022 ??? Melanoma 12/29/2022 ??? Mediastinal adenopathy 12/29/2022 ??? Femoral hernia 11/19/2019 Past Medical History: Diagnosis Date ??? GERD (gastroesophageal reflux disease) Past Surgical History: Past Surgical History: Procedure Laterality Date ??? CHOLECYSTECTOMY, LAPAROSCOPIC c/b deep space infection requiring IR drainage ??? INGUINAL HERNIA REPAIR Right ??? SKIN CANCER EXCISION Right lower right back Medications: Outpatient Medications Marked as Taking for the 12/29/22 encounter (Office Visit) with Tay Maldonado MD Medication Sig Dispense Refill ??? cholecalciferol, Vitamin D3, (Vitamin D) 25 mcg (1,000 unit) Capsule Take 1,000 Units by mouth daily. ??? ascorbic acid, Vitamin C, (vitamin C) 500 mg tablet Take 500 mg by mouth daily. ??? YWRFTIS-KSKYLTTSH-GGSY ORAL Take 1 tablet by mouth daily. ??? glucosamine/msm/chondrt/C/hyal (UHISQUDZQPN-URACZNALKPL-XRZ ORAL) Take 1 tablet by mouth daily. ??? aspirin EC 81 mg EC (DR) tablet Take 81 mg by mouth daily. ??? [DISCONTINUED] vit C/E/Zn/coppr/lutein/zeaxan (PRESERVISION AREDS-2 ORAL) Take 1 tablet by mouth daily. ??? pantoprazole (PROTONIX) 40 mg Tablet, Delayed Release (E.C.) Take 40 mg by mouth daily. 0 Allergies: Allergies Allergen Reactions ??? Cat Dander ? ? Dust & Pollen Filter Mask [Facial Mask] ??? Hay Fever And Allergy Relief [Chlorpheniramine-Phenylpropan] ??? Oats ??? [place] Family History: Family History Problem Relation Age of Onset ??? Myocardial Infarction Mother 80 ??? Heart Disease Father ??? Hypertension Father ??? Diabetes Father ??? Arthritis Brother ??? Cancer Paternal Grandmother type unknown ??? Breast Cancer Paternal Aunt Social History: Social History Socioeconomic History ??? Marital status: Spouse name: Not on file ??? Number of children: Not on file ??? Years of education: Not on file ??? Highest education level: Not on file Occupational History ??? Not on file Tobacco Use ??? Smoking status: Former Packs/day: 2.00 Years: 21.00 Pack years: 42.00 Types: Cigarettes Start date: 1971 Quit date: 1992 Years since quittin.3 ??? Smokeless tobacco: Never Vaping Use ??? Vaping Use: Never used Substance and Sexual Activity ??? Alcohol use: Not Currently Comment: quit 16 years ago ??? Drug use: Not Currently Types: Marijuana ??? Sexual activity: Not on file Other Topics Concern ??? Not on file Social History Narrative ??? Not on file Social Determinants of Health Financial Resource Strain: Not on file Food Insecurity: Not on file Transportation Needs: Not on file Physical Activity: Not on file Housing Stability: Not on file REVIEW OF SYSTEMS: General: Positive for fatigue. Denies weight loss, chills, night sweats. Neuro: History of TIA (2019). Denies seizure, CVA, FERNANDEZ, visual changes, diplopia, weakness/numbness in extremities. Psychiatric: Denies psychiatric diagnoses. Cardiovascular: Denies arrythmias, CAD, HTN, family history of cardiac disease, CHF, hyperlipidemia. Respiratory: History of childhood asthma, resolved. Denies COPD, emphysema, cough, dyspnea, wheezing, stridor, hemoptysis, respiratory infection, TB or exposure to TB. GI: Denies change in bowel habits. : Denies change in voiding habits. Hematologic: Denies history of DVT, PE. Endocrine: History of prediabetes. Denies thyroid disease. Musculoskeletal: Denies fractures, arthritis. Integument: History of melanoma s/p excision. Physical Exam: BP 143/84 (Patient Position: Sitting) Pulse 61 Temp 36.6 ??C (97.9 ??F) (Temporal) Resp 18 Ht 177.8 cm (5' 10) Wt 91.1 kg (200 lb 13.4 oz) SpO2 96% BMI 28.82 kg/m?? General Appearance: Alert, pleasant, no distress, appears stated age HEENT: PERRL, MMM, non-icteric, EOMI Neck: Supple, symmetrical, trachea midline, no palpable cervical or supraclavicular adenopathy; thyroid: not enlarged, symmetric, no tenderness/mass/nodules Lungs: Clear to auscultation, respirations unlabored, no wheezes, crackles or ronchi. Heart: Regular rate and rhythm, S1 and S2 normal, no murmur, rub, or gallop Abdomen: Soft, non-tender, bowel sounds normo-active in all four quadrants, no masses, no organomegaly Extremities: Extremities normal, no cyanosis, clubbing. No edema Neurologic: A+Ox3, cranial nerves II-XII grossly intact Musculoskeletal: 5/5 throughout with normal gait Incisions/Wounds: Well healed surgical scar right lower back Diagnostics: I have independently visualized all relevant imaging studies, including: CT Chest (11/17/22): Assessment: This is a 67 y.o. male with PMHx malignant melanoma in situ (0.3 mm) s/p excision referred for multiple enlarged right paratracheal, subcarinal, and bilateral hilar nodes on recent CT Chest. Unlikely to be related to MIS given minimal depth, more likely sarcoidosis or another inflammatory process. Plan of Management: 1. Patient consented today for bronchoscopy and EBUS with biopsy of his lymph nodes. Patient aware of the risks and benefits for surgery. Patient willing to proceed. Samples to be sent for cytology, flow cytometry, and culture. Tentatively planned for OR on 01/[address] Shelby. 2. 30 minutes of aerobic exercise daily, at minimum. Discussed importance of this prior to and during treatment. 3. Call with any questions KAMINI Harmon 12/29/22 Thoracic Surgery I have seen the patient and reviewed the PA/resident's above history and I agree with the details as written. The assessment and plan were formulated in discussion with me and I agree with them as documented. Assessment: This is a 67 y.o. male with PMHx malignant melanoma in situ (0.3 mm) s/p excision with multiple enlarged right paratracheal, subcarinal, and bilateral hilar nodes on recent CT Chest. Unlikely to be related to melanoma given minimal depth of invasion, more likely sarcoidosis or another benign process. Plan of Management: 1. Patient consented today for bronchoscopy and EBUS with biopsy of his lymph nodes. Patient aware of the risks and benefits for surgery. Patient willing to proceed. Samples to be sent for cytology, flow cytometry, and culture. Tentatively planned for OR on 01/[address] Shelby. 2. 30 minutes of aerobic exercise daily, at minimum. Discussed importance of this prior to and during treatment. 3. Call with any questions SUSHANT MALDONADO MD documented in this encounter Plan of Treatment Scheduled Referrals Name Type Priority Associated Diagnoses Orde r Schedule Referral to General Surgery Outpatient Referral Routine Femoral hernia with obstruction without gangrene, recurrence not specified, unspecified laterality Ordered: 12/29/2022 documented as of this encounter Results * EKG 12 Lead (01/01/2023 12:53 PM EDT) Ventricular rate 67 BPM MUSE SYSTEM Atrial Rate 67 BPM MUSE SYSTEM P-R Interval 150 ms MUSE SYSTEM QRS Duration 94 ms MUSE SYSTEM Q-T Interval 374 ms MUSE SYSTEM QTC Calculated (Bezet) 395 ms MUSE SYSTEM Calculated P [place] 28 degrees MUSE SYSTEM Calculated R [place] 26 degrees MUSE SYSTEM Calculated T [place] 10 degrees MUSE SYSTEM INTERPRETATION Normal sinus rhythm with sinus arrhythmia Normal ECG No previous ECGs available Confirmed by MD DIAZ SALVATORE ([id number]) on 01/01/2023 3:58:07 PM MUSE SYSTEM 01/01/2023 12:5 3 PM EDT 01/01/2023 3:58 PM EDT Sushant Maldonado MD ECG ORDERABLES [employer] SYSTEM documented in this encounter Visit Diagnoses Diagnosis Malignant melanoma, unspecified site Mediastinal adenopathy Enlargement of lymph nodes Femoral hernia with obstruction without gangrene, recurrence not specified, unspecified laterality documented in this encounter Care Teams Dramatic Teacher Relationship Specialty Start Date End Date Britt Bravo PA [address] [address] PCP - General Family Medicine 11/18/22 documented as of this encounter
--- OUTSIDE RECORDS SUMMARY | 2024-05-09 15:36 | XMS_ITS | Encounter Summary ---
Author Organization [facility] Address [facility] [place] [address] Care Team Providers Care Archeologist Classical Name Role Phone El Thomas MD Primary Care Provider Reason for Visit * Reason Comments Skin Check FSE Encounter Details Date Type Department Care Team (Late st Contact Info) Description 04/28/2019 9:00 AM EDT Office Visit Dermatology at [facility] [address] [place] [address] Meron Gilliam MD [facility] [address] BLADIMIR [place] [address] History of melanoma; SK (seborrheic keratosis); Neoplasm of uncertain behavior of skin; Dermatofibroma Social History Tobacco Use Types Packs/Day Years Used Date Smoking Tobacco: Former Smokeless Tobacco: Never Sex and Gender Information Value Date Recorded Sex Assigned at Not on file Gender Identity Not on file Sexual Orientation Not on file documented as of this encounter Progress Notes * Meron Gilliam MD - 04/28/2019 9:00 AM EDT Images from the original note were not included. DERMATOLOGY OUTPATIENT CLINIC NOTE Date of service: 04/28/2019 Diallo J Neha : 1955 Provider: Meron Gilliam MD PROBLEM: FSE SKIN HISTORY: Prurigo Nodules Right lower back??07/25/2018 - At least melanoma in situ, s/p excision with 1cm margins.?? HPI Diallo Solomon is a 63 y.o. year old male. Here in follow up for 3 month full skin exam with history as stated above. Pt denies any new skin concerns today. Social History: Self Employed Contractor, building houses. Wears a shirt when working now, used to work without ?? Family History: None ADR: Allergies Allergen Reactions ??? Cat Dander ? ? Dust & Pollen Filter Mask [Facial Mask] ??? Hay Fever And Allergy Relief [Chlorpheniramine-Phenylpropan] ??? Oats ??? Thomson CURRENT MEDICATIONS: Current Outpatient Medications Medication Sig Dispense Refill ??? pantoprazole (PROTONIX) 40 mg Tablet, Delayed Release (E.C.) 0 No current facility-administered medications for this visit. PROBLEM LIST: There is no problem list on file for this patient. ROS General: feeling well. Oriented X 3. Skin: denies other skin complaints EXAM General: NAD, pleasant, cooperative Skin: Underwear on: Patient was asked to undress to the level of his comfort. Verbalized that the provider's preferenceis for the patient to remove all clothing and that the provider will not examine areas patient elects to keep covered. Patient's decision was to keep underwear on and have the following examined: skin of the scalp, hair, face, ears, neck, chest, abdomen, back, axillae, upper and lower extremities, hands, and feet. Buttocks and genitalia were not examined. Significant skin findings: - Right flank/lower back: well healed scar - Right lower flank, at anterior aspect of scar, 2 mm brown macule -Left calf: 6 mm firm brown papule -Trunk, face and extremities: Multiple 0.3-0.5 cm medium-brown, evenly-pigmented macules and papules. All with regular pigment pattern on dermoscopy. No pigmented lesions suspicious for melanoma. -Right zygoma extending to the right lateral canthus. 2.2 cm x 1.5 cm plaque. ASSESSMENT/PLAN X. History of melanoma - - well healed scar, biopsy of new pigmented lesion overlying scar as below - no axillary or inguinal lymphadenopathy -X. Lentigo vs recurrent melanoma vs nevus - Recommended a skin biopsy to confirm/clarify the nature of the skin lesion. After discussion of potential risks (scarring, bleeding, infection) and recurrence, patient agreed to proceed. - Patient denies known allergies to lidocaine and epinephrine. Procedure: Skin punch biopsy. Location: right lower back Time of procedure: 9:12am Discussed indications for the procedure and expectations including risks and benefits. Verbal consent obtained. Skin prepped with alcohol. Local anesthesia with 1% xylocaine, 1/100,000 epinephrine. A3 mm punch biopsy to the level of the subcutis was performed. Specimen submitted to Pathology. Wound closed with monofilament suture. There were no complications; patient tolerated the procedure well. Wound dressed. Post-procedure expectations (including discomfort management), wound care and activity restrictions reviewed. - Follow-up based on pathology results. - Suture removal: 7 days. He will have this done closer to home X. Dermatofibroma - Discussed benign nature of lesion and provided reassurance. No treatment necessary. - Explained that if it were to become irritated, punch removal is an option but would be trading the papule for a scar. X. Seborrheic Keratoses - Explained that these are hereditary and adult-acquired. Reassured patient of benign nature. No treatment necessary. - Discussed cosmetic removal with cryotherapy. Patient quoted $100 for removal of 1-10, and $200 for removal of 11-20. Patient declined cosmetic removal today. - Advised patient to call if they become inflamed or irritated. Photos obtained with patient consent RTC - 3 months for melanoma f/u. Scheduled upon exiting Note initiated and routed to physician for [...] documentation. Meron Gilliam MD Section of Dermatology [facility] * Meron Gilliam MD - 04/28/2019 9:00 AM EDT Called and discussed results with patient, benign nevus and no evidence of melanoma, Will continue to monitor. Meron Gilliam MD DIAGNOSIS Skin, right lower flank, punch ?? biopsy: - ??Lentiginous compound melanocytic nevus, present at the peripheral specimen edge - Pigment incontinence and fibrosis documented in this encounter Plan of Treatment Not on file documented as of this encounter Procedures Procedure Name Priority Date/Time Associated Diagnosis Comments SPECIMEN TO PATHOLOGY Routine 04/28/2019 11:30 AM EDT Neoplasm of uncertain behavior of skin SURGICAL PATHOLOGY REPORT Routine 04/28/2019 9:12 AM EDT documented in this encounter Results * Specimen to Pathology (04/28/2019 11:30 AM EDT) AP Specimen 04/28/2019 11:3 0 AM EDT 04/28/2019 4:16 PM EDT Narrative [facility] - 04/28/2019 4:16 PM EDT Specimen requisition ordered. ??Separate Pathology report to follow Resulting Agency Comment Spec In Lab Meron Gilliam MD PATHOLOGY/CYTOLOG Y ORDERABLES [facility] [place] [address] * Surgical Pathology Report (04/28/2019 9:12 AM EDT) Final Diagnosis [id number] ? Location: [facility] The signing pathologist has (i) examined the relevant preparation(s) for the specimen(s) and (ii) rendered or confirmed the diagnosis(es). . ?Surgical Pathology DIAGNOSIS Skin, right lower flank, punch ?? biopsy: - ??Lentiginous compound melanocytic nevus, present at the peripheral specimen edge - Pigment incontinence and fibrosis Electronically signed by: ??Yo Jerez MD Verified: ??05/03/2019 ?Dermatopatholog ist Performed at: ??-[facility] Dept. of Pathology, [place], [place] ADDITIONAL STUDIES Interpretation of multiple deeper leveled slide sections and a Melan-A stain confirms the diagnosis above. The clinical history of melanoma at a reportedly nearby anatomic site is noted, and select slides of the corresponding biopsy ([id number]) have been examined. CLINICAL INFORMATION Specimen Submitted: A - Skin, right lower flank, punch (1) Clinical History and Diagnosis: Lentigo versus recurrent melanoma vs nevus; 2 mm brown macule SPECIMEN PROCESSING A - Labeled/Fixative: Right lower flank, formalin. Quantity/Size: ??Single, 0.3 x 0.3 cm. Tissue Description: Estevez skin punch excised to a depth of 0.4 cm, with a 0.3 x 0.2 cm estevez-brown ill-defined lesion. Sections/Processi ng: Inked and entirely submitted in 1 cassette labeled A1. ??jmb 05/03/2019 4:21 PM EDT [facility] SPECIMEN FROM SKIN / Unknown 04/28/2019 9:12 AM EDT 04/28/2019 9:12 AM EDT Meron Gilliam MD PATHOLOGY/CYTOLOG Y ORDERABLES [facility] [place] [address] documented in this encounter Visit Diagnoses Diagnosis History of melanoma Personal history of malignant melanoma of skin SK (seborrheic keratosis) Other seborrheic keratosis Neoplasm of uncertain behavior of skin Dermatofibroma Benign neoplasm of skin, site unspecified documented in this encounter Care Teams Archeologist Classical Relationship Specialty Start Date End Date El Thomas MD PCP - General 07/29/10 11/18/21 documented as of this encounter
--- OUTSIDE RECORDS SUMMARY | 2024-05-09 15:36 | XMS_ITS | Encounter Summary ---
Author Organization [facility] Address [address] [place] [address] Care Team Providers Care Rib Cloth Knitter Name Role Phone Tay Espinal DO Primary Care Provider [phone] Encounter Details Date Type Department Care Team (Latest Contact Info) Description 10/03/2018 19:17 EST - 10/03/2018 23:59 EST Hospital Encounter [address] [address] Unknown, Provider, Discharge Disposition: Home or Self Care Social History Tobacco Use Types Packs/Day Years Used Date Smoking Tobacco: Never Assessed Sex and Gender Information Value Date Recorded Sex Assigned at Not on file Gender Identity Not on file Sexual Orientation Not on file documented as of this encounter Discharge Disposition Disposition Code Departure Means Destination Home or Self Jail documented in this encounter Plan of Treatment Not on file documented as of this encounter Visit Diagnoses Not on filedocumented in this encounter Care Teams Rib Cloth Knitter Relationship Specialty Start Date End Date Tay Espinal DO [address] [place] [address] PCP - General 04/28/13 documented as of this encounter
--- OUTSIDE RECORDS SUMMARY | 2024-05-09 15:36 | XMS_ITS | Encounter Summary ---
Author Organization [facility] Address [address] [place] [address] Care Team Providers Care Research Associate Policy Name Role Phone Tay Espinal DO Primary Care Provider [phone] Encounter Details Date Type Department Care Team (Latest Contact Info) Description 03/31/2017 11:48 EDT - 03/31/2017 23:59 EDT Hospital Encounter [address] [address] Unknown, Provider, Discharge Disposition: Auto Discharge Social History Tobacco Use Types Packs/Day Years Used Date Smoking Tobacco: Never Assessed Sex and Gender Information Value Date Recorded Sex Assigned at Not on file Gender Identity Not on file Sexual Orientation Not on file documented as of this encounter Discharge Disposition Disposition Code Departure Means Destination Auto Discharge Home documented in this encounter Plan of Treatment Not on file documented as of this encounter Visit Diagnoses Not on filedocumented in this encounter Care Teams Research Associate Policy Relationship Specialty Start Date End Date Tay Espinal DO [address] [place] [address] PCP - General 04/28/13 documented as of this encounter
--- OUTSIDE RECORDS SUMMARY | 2024-05-09 15:36 | XMS_ITS | Encounter Summary ---
Author Organization [facility] [place] [address] Care Team Providers Care Mud Plant Operator Name Role Phone Britt Bravo Primary Care Provider [phone] Encounter Details Date Type Department Care Team (Late st Contact Info) Description 11/25/2022 Telephone [place] [address] Bernardo Ramirez Social History Tobacco Use Types Packs/Day Years Used Date Smoking Tobacco: Former Smokeless Tobacco: Never Sex and Gender Information Value Date Recorded Sex Assigned at Not on file Gender Identity Not on file Sexual Orientation Not on file documented as of this encounter Miscellaneous Notes * Telephone Encounter - Bernardo Ramirez - 11/25/2022 1:52 PM EDT Faxed request for 11/17/22 CT to [facility] [phone]. Faxed request for 11/06/22 MRI to [facility] [phone]. documented in this encounter Plan of Treatment Not on file documented as of this encounter Visit Diagnoses Not on filedocumented in this encounter Care Teams Mud Plant Operator Relationship Specialty Start Date End Date Britt Bravo PA [address] [place] [id number] PCP - General Family Medicine 11/18/22 documented as of this encounter
--- OUTSIDE RECORDS SUMMARY | 2024-05-09 15:36 | XMS_ITS | Encounter Summary ---
[place] [address] Care Team Providers Care Resistor Testing Machine Operator Name Role Phone Britt Bravo Primary Care Provider Reason for Referral * Consultation (Urgent) - Closed Specialty Diagnoses / Procedures Referred By Contping t Referred To Contact Thoracic Surgery Diagnoses Mediastinal lymphadenopathy Mediastinal lymphadenopathy Britt Bravo PA [address] [place] [address] [facility] [address] [place] [phone] Referral ID Status Reason Start Date Expiration Date V isits Requested Visits Authorized [id number] Closed Consult, Test & Treat PCP Updated and/or Approved 11/18/2022 11/18/2023 6 6 Encounter Details Date Type Department Care Team (Latest Contact Info) Description 11/18/2022 Transcribe Orders eDH Incoming Referrals [phone] Britt Bravo PA [address] [place], [place] [id number] Mediastinal lymphadenopathy Social History Tobacco Use Types Packs/Day Years Used Date Smoking Tobacco: Former Smokeless Tobacco: Never Sex and Gender Information Value Date Recorded Sex Assigned at Not on file Gender Identity Not on file Sexual Orientation Not on file documented as of this encounter Plan of Treatment Scheduled Referrals Name Type Priority Associated Diagnoses Orde r Schedule Amb Ref To Thoracic Surgery Outpatient Referral Urgent Mediastinal lymphadenopathy Ordered: 11/18/2022 documented as of this encounter Visit Diagnoses Diagnosis Mediastinal lymphadenopathy Enlargement of lymph nodes documented in this encounter Care Teams Resistor Testing Machine Operator Relationship Specialty Start Date End Date Britt Bravo PA [address] [place] [id number] PCP - General Family Medicine 11/18/22 documented as of this encounter
--- OUTSIDE RECORDS SUMMARY | 2024-05-09 15:36 | XMS_ITS | Encounter Summary ---
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 Please allow time for your provider to receive these results and explore management options, if applicable. 09/28/2023 11:48 [facility] Final Diagnosis A. ESOPHAGUS, 37 CM, BIOPSY: - Columnar mucosa with intestinal metaplasia consistent with Desouza esophagus. - Negative for dysplasia. B. ESOPHAGUS, 36 CM, BIOPSY: - Squamocolumnar mucosa with reflux associated changes and intestinal metaplasia consistent with Desouza esophagus. - Negative for dysplasia. C. ESOPHAGUS, 35 CM, BIOPSY: - Squamocolumnar mucosa with reflux associated changes and intestinal metaplasia consistent with Desouza esophagus. - Negative for dysplasia. D. COLON, DISTAL TRANSVERSE, POLYP, BIOPSY: - Tubular adenoma. 09/28/2023 11:48 [facility] Diagnosis Comment The technical component of the specimen processing was performed at the [facility] Pathology Department, [address] [place] [address] (CLIA [id number]). The professional component of the specimen evaluation (slide review and issuing of the final diagnosis) was performed at [facility], [address] [place] [address] (CLIA License Number [id number]). 09/28/2023 11:48 [facility] Attestation By the signature below, the attending physician certifies that they have 1) personally conducted a gross and/or microscopic examination of the described specimen(s), and/or personally interpreted the results of laboratory testing of the described specimen(s), and 2) personally rendered or confirmed the above diagnosis. 09/28/2023 11:48 [facility] at [address] Clinical History EGD, screening colonoscopy, hx edematous colonic polyps, Desouza's esophagus, diverticulitis, GERD, diverticulosis; clinical diagnosis code: K22.70, Z86.010 09/28/2023 11:48 [facility] Gross Description A. Received in formalin labelled with proper patient identification (initials B, D) and A. Biopsy @ 37 cm are 2 estevez-brown to estevez tissues (0.25 x 0.1 x 0.1 cm and 0.1 x 0.1 by less than 0.1 cm). Entirely submitted in A1. Please note the smaller tissue may not survive processing. B. Received in formalin labelled with proper patient identification (initials B, D) and B. Biopsy @ 36 cm are 3 estevez tissues (0.4 x 0.1 x 0.1 cm to 0.2 x 0.1 by less than 0.1 cm). Entirely submitted in B1. Please note the smallest tissue may not survive processing. C. Received in formalin labelled with proper patient identification (initials B, D) and C. Biopsy @ 35 cm are 4 estevez-white to brown tissues (0.2 x 0.1 x 0.1 cm to 0.1 x 0.1 by less than 0.1 cm). Entirely submitted in C1. Please note the smaller tissues may not survive processing. D. Received in formalin labelled with proper patient identification (initials B, D) and D. Distal transverse colon polyp is a single wild-brown tissue (0.2 x 0.2 x 0.1 cm). Submitted intact in D1. Daija Newton 09/24/2023 9:16 09/28/2023 11:48 EST [facility] Performing Lab [facility] 09/28/2023 11:48 EST [facility] Scanned Images 09/28/2023 11:48 EST [facility] Tissue ESOPHAGEAL STRUCTURE / Unknown 09/23/2023 10:25 EST 09/23/2023 23:02 EST Tissue specimen (specimen) ESOPHAGEAL STRUCTURE / Unknown 09/23/2023 10:25 EST 09/23/2023 23:02 EST Tissue specimen (specimen) ESOPHAGEAL STRUCTURE / Unknown 09/23/2023 10:25 EST 09/23/2023 23:02 EST Tissue specimen (specimen) TRANSVERSE COLON STRUCTURE / Unknown 09/23/2023 10:25 EST 09/23/2023 23:02 EST Angel Bermudez MD PATHOLOGY ORD ERABLES [facility] [address] [place] [address] documented in this encounter Visit Diagnoses Diagnosis Personal history of colonic polyps 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
--- OUTSIDE RECORDS SUMMARY | 2024-05-09 15:36 | XMS_ITS | Encounter Summary ---
Author Organization [facility] Address [address] [place] [address] Care Team Providers Care Back Padder Name Role Phone Tay Espinal DO Primary Care Provider [phone] Encounter Details Date Type Department Care Team (Latest Contact Info) Description 03/30/2017 8:20 EDT - 03/30/2017 23:59 EDT Hospital Encounter [address] [address] Unknown, Provider, Discharge Disposition: Home or Self Care Social History Tobacco Use Types Packs/Day Years Used Date Smoking Tobacco: Never Assessed Sex and Gender Information Value Date Recorded Sex Assigned at Not on file Gender Identity Not on file Sexual Orientation Not on file documented as of this encounter Discharge Disposition Disposition Code Departure Means Destination Home or Self Shelter documented in this encounter Plan of Treatment Not on file documented as of this encounter Visit Diagnoses Not on filedocumented in this encounter Care Teams Back Padder Relationship Specialty Start Date End Date Tay Espinal DO [address] [place] [address] PCP - General 04/28/13 documented as of this encounter
--- OUTSIDE RECORDS SUMMARY | 2024-05-09 15:36 | XMS_ITS | Encounter Summary ---
Author Organization [facility] Address [facility] [place] [address] Care Team Providers Care Director Labor Standards Name Role Phone El Thomas MD Primary Care Provider [phone] Encounter Details Date Type Department Care Team (Late st Contact Info) Description 09/08/2018 Telephone Dermatology at [facility] [address] [place] [phone] Qi Goyal MD [facility] [address] [place] [address] Social History Tobacco Use Types Packs/Day Years Used Date Smoking Tobacco: Former Smokeless Tobacco: Never Sex and Gender Information Value Date Recorded Sex Assigned at Not on file Gender Identity Not on file Sexual Orientation Not on file documented as of this encounter Miscellaneous Notes * Telephone Encounter - Lian Shah - 09/08/2018 8:33 AM EST Called and left a message for Diallo Solomon requesting a call back to schedule the next availableFSE with Dr Goyal. HX of melanoma and needs a FSE every 3 months. documented in this encounter Plan of Treatment Not on file documented as of this encounter Visit Diagnoses Not on filedocumented in this encounter Care Teams Director Labor Standards Relationship Specialty Start Date End Date El Thomas MD PCP - General 07/29/10 11/18/21 documented as of this encounter
--- OUTSIDE RECORDS SUMMARY | 2024-05-09 15:36 | XMS_ITS | Encounter Summary ---
Author Organization [facility] Address [facility] [place] [address] Care Team Providers Care Transitional Studies Instructor Name Role Phone El Thomas MD Primary Care Provider Reason for Visit * Reason Comments Skin Check Encounter Details Date Type Department Care Team (Late st Contact Info) Description 10/13/2018 11:00 AM EST Office Visit Dermatology at [facility] [address] [place] [address] Qi Goyal MD [facility] [address] [address] Multiple benign nevi; Melanoma of back; History of melanoma; Dermatofibroma; SK (seborrheic keratosis) Social History Tobacco Use Types Packs/Day Years Used Date Smoking Tobacco: Former Smokeless Tobacco: Never Sex and Gender Information Value Date Recorded Sex Assigned at Not on file Gender Identity Not on file Sexual Orientation Not on file documented as of this encounter Progress Notes * Qi Goyal MD - 10/13/2018 11:00 AM EST Images from the original note were not included. DERMATOLOGY - ESTABLISHED PATIENT FOLLOW-UP Date of service: 10/13/2018 Diallo Solomon : 1955, 63 y.o. Chief Complaint: Pigmented lesion and skin cancer evaluation. HPI: Diallo Solomon is a 63 y.o. male last seen by on 08/23/2018. Returns today for a FBSE. Hx of MIS w question of invasion to 0.3mm s/p excision by me on 08/23/18.Healing well, no issues. Aside from the aforementioned complaints, patient denies any new spot thathas been growing, changing, bleeding, or symptomatic. Relevant Skin History: Right lower back 07/25/2018 - At least melanoma in situ, suspicious for invasive melanoma with a Breslow depth of 0.3 millimeters s/p excision with 1cm margins. 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 Family History: none Medications: Current Outpatient Medications Medication Sig Dispense Refill ??? pantoprazole (PROTONIX) 40 mg Tablet, Delayed Release (E.C.) 0 No current facility-administered medications for this visit. Allergies: Allergies Allergen Reactions ??? Cat Dander ? ? Dust & Pollen Filter Mask [Facial Mask] ??? Hay Fever And Allergy Relief [Chlorpheniramine-Phenylpropan] ??? Oats ??? [place] Review of Systems: - General: Feels well. - Skin: No other skin concerns. Examination: - Constitutional: Patient was alert, well-appearing and in no noticeable distress. - Skin:The entire skin surface was examined, including the face, neck, chest, abdomen, back. The arms and legs, including the palms, soles, fingers and between the toes. No lymphadenopathy, including the axillary, and inguinal arelas. Melanoma excision site scar was examined and palpated. There was no increase in pigmentation or induration at this site. Diagnosis/Skin findings/Assessment/Plan: 1. Hx of MIS w suspicion for invasion of 0.3mm: lower back: Well healed linear surgical scar. -the area of interest was evaluated visually and palpated -no evidence of tumoral regrowth -reassured patient. Counseled on continuing with frequent monitoring for recurrence, changes, growths. If so, patient instructed to RTC for re-evaluation. 2. Seborrheic keratosis: Right zygoma extending to the right lateral canthus. 2.2 cm x 1.5 cm plaque. Dermoscopic features c/w SK. Will monitor with photo and 3 month f/ups 3. Dermatofibroma (DF) Left proximal lower le mm firm papule, centrally raised and sclerotic, with peripheral hyperpigmentation and dimpling with lateral pressure. - Reassured of the benign nature of these lesions. No treatment needed. Instructed pt to monitor for changes (growing in size, changing colour) or if it becomes symptomatic, then to return to clinic for re-evaluation. 4. Benign Appearing Nevi: Scattered multiple, 0.3-0.5cm, medium-brown, evenly- pigmented macules andpapules. - Reassurance, discussed importance of ABCDE's and monthly self exams # Skin Cancer Surveillance -- no growths or lesions suspicious for malignancy on the body parts examined as listed above - discussed the importance of frequently monitoring [...] de ana - recommended wearing broad-brimmed hat RTC: In 3 months for a melanoma skin check, and follow up of skin lesion on the right zygoma. The following photos were obtained with patient consent: Note initiated by ARCENIO MICHAEL LPN. I, ARCENIO MICHAEL LPN, have performed the documentation for this encounter in the presence of and acting as a scribe for Qi Goyal MD. I performed the services which were documented by the scribe, and I agree with the accuracy of the documentation in this encounter. ARCENIO MICHAEL LPN Reviewed and signed by: Qi Goyal MD Resident in Dermatology [facility] Patient seen and evaluated with staff retort kiln burner: Valery Jaffe MD Section of Dermatology [facility] Level of Resident Supervision: Direct Supervision (The supervising physician is physically present with the resident and patient). * Valery Jaffe MD - 10/13/2018 11:00 AM EST I directly supervised Dr. Qi Goyal during this office visit. Dr. Goyal presented the history and physical exam to me. I then saw and examined this patient with Dr. Goyal. We reviewed the history and pertinent details and I confirmed the physical findings. I agree with the details of the history and physical exam as documented in Dr. Goyal's note. Valery Jaffe MD Staff Physician documented in this encounter Plan of Treatment Not on file documented as of this encounter Visit Diagnoses Diagnosis Multiple benign nevi Benign neoplasm of skin, site unspecified Melanoma of back Malignant melanoma of skin of trunk, except scrotum History of melanoma Personal history of malignant melanoma of skin Dermatofibroma Benign neoplasm of skin, site unspecified SK (seborrheic keratosis) Other seborrheic keratosis documented in this encounter Care Teams Transitional Studies Instructor Relationship Specialty Start Date End Date El Thomas MD PCP - General 07/29/10 11/18/21 documented as of this encounter
--- OUTSIDE RECORDS SUMMARY | 2024-05-09 15:36 | XMS_ITS | Encounter Summary ---
Author Organization [facility] Address [facility] [place] [address] Care Team Providers Care Technology Support Analyst Name Role Phone Britt Bravo Primary Care Provider [phone] Encounter Details Date Type Department Care Team (Late st Contact Info) Description 01/01/2023 1:25 PM EDT Anesthesia Event [place] [id number] Elijah Aguayo MD [facility] [place] [address] Torsten Justin MD [facility] [place] [address] Anesthesia Record Procedure Summary Procedure Name Responsible Anesthesiologist Anesthesia Start Time Anesthesia Stop Time BRONCH, W ENDOBRONCHIAL ULTRASOUND (EBUS) GUIDED SAMPLING, 3+ NODES (WRVU 4.96) Elijah Aguayo MD 01/01/23 1325 01/01/23 1459 Events Date Time Event Comment 01/01/2023 1207 1324 AN Verify 1325 Start 1325 An Start Data 1330 An Induction 1333 An Intubation 1336 Anesthesia Ready 1423 Handoff Intra-procedure anesthesia care was transferred after review of the patient's history, current anesthetic/surgical status and procedural plan, anticipated issues and expected post-operative course (including disposition.) Elijah Aguayo MD 1450 Extubation/LMA Out 1451 an stop data 1457 Recovery or ICU Handoff Felipa ent care was transferred to the destination unit staff after review of the patient's medical history, current anesthetic/surgical status and plan, according to the Provider Handoff Checklist. 1459 Stop Meds Name Total Propofol 100 mg Propofol INF 749.3 mg REMIfentanil INF 0.77 mg Succinylcholine 100 mg PHENYLephrine 360 mcg PHENYLephrine INF 1,520 mcg Dexamethasone 8 mg Ondansetron 8 mg Lactated Ringers 800 mL * Agents Name O2 Air N2O Sevoflurane (et) * Blood No blood administrations on file. Lines, Drains, and Airways Type Details Placement Removal (RETIRED) Peripheral IV Line - Single Lumen 01/01/23; 1233; metacarpal vein (top of hand), right; [id number]-qsu-[id number] catheter system; Anatomical Landmarks; 20 gauge; Chance RN; distraction, tolerated well, appears comfortable; LDA not present upon assessment; 07/14/23; 1409 01/01/23 1233 by Chance Armstrong RN 07/14/23 1409 by Linsey Aceves RN ETT Mask Ventilation: Ea sy (1); ETT Type: Cuffed; ETT Size: 8.5 mm; Dickinson Blade: 3; Notes: Asleep, Pre-O2, Stylette; Attempts: 1; Laryngoscopy Grade: 1; ETT Placement Verified By: Auscultation, Capnometry, Visual; Secured at Teeth: 23 cm; Inserted by: MD Nhan; Removal Date: 01/01/23; Removal Time: 1450 01/01/23 1339 by Torsten Justin MD 01/01/23 1450 by Torsten Justin MD documented in this encounter Social History Tobacco Use Types Packs/Day Years Used Date Smoking Tobacco: Former Cigarettes 2 - 1992 Smokeless Tobacco: Never Alcohol Use Standard Drinks/Week Comments Not Currently 0 (1 standard drink = 0.6 oz pur e alcohol) quit 16 years ago Sex and Gender Information Value Date Recorded Sex Assigned at Not on file Gender Identity Not on file Sexual Orientation Not on file documented as of this encounter OR Notes * Anesthesia Postprocedure Evaluation - Torsten Justin MD - 01/01/2023 2:59 PM EDT Department of Anesthesiology Post-procedure Note Patient: Diallo Solomon Procedure Summary Date: 01/01/23 Room / Location: [facility] OR [facility] MAIN OR Anesthesia Start: 1325 Anesthesia Stop: Procedure: BRONCH, W ENDOBRONCHIAL ULTRASOUND (EBUS) GUIDED SAMPLING, 3+ NODES (WRVU 4.96) Diagnosis: Malignant melanoma, unspecified site Mediastinal adenopathy (Mediastinal Adenopathy with h/o melenamoa) Surgeons: Cameron Shelby MD Responsible Provider: Elijah Aguayo MD Anesthesia Type: general ASA Status: 3 All Anesthesia Providers: Anesthesiologist: Wilda Calvert MD; Elijah Aguayo MD Assistive Technology Specialist: Torsten Justin MD Vitals Value Taken Time BP Temp Pulse Resp SpO2 Pain Level Patient Location: PACU/[facility] Level of Consciousness: Conscious but Sleepy Pain Management: Satisfactory Analgesia PONV: None Cardiovascular Status: At Baseline Respiratory Status: Supplemental O2 (NC or FM) and Stable Respiratory Status Postoperative Fluid Status: Possible Anesthetic Complications: NONE apparent at time of evaluation Final Primary Anesthesia Type: General (The anesthetic type performed was the same as planned.) Comments: * Anesthesia Preprocedure Evaluation - Wilda Calvert MD - 12/31/2022 5:03 PM EDT Pre-Anesthesia Evaluation for: Diallo Solomon a 67 y.o. male. Procedure(s): BRONCH, W ENDOBRONCHIAL ULTRASOUND (EBUS) GUIDED SAMPLING, 3+ NODES (WRVU 4.96) Patient Active Problem List Diagnosis Date Noted [...] Years since quittin.3 ??? Smokeless tobacco: Never Substance Use Topics ??? Alcohol use: Not Currently Comment: quit 16 years ago Social History Substance and Sexual Activity Drug Use Not Currently ??? Types: Marijuana Allergies Allergen Reactions ??? Cat Dander ? ? Dust & Pollen Filter Mask [Facial Mask] ??? Hay Fever And Allergy Relief [Chlorpheniramine-Phenylpropan] ??? Oats ??? [place] Medications: MAR and/or home medications have been reviewed. Physical Exam: Preprocedure Vitals Current as of 12/31/22 1703 No BP, pulse, respiration, SpO2, or temperature recorded. Height: 177.8 cm (5' 10) (12/29/22) Weight: 91.1 kg (200 lb 13.4 oz) (12/29/22) BMI: 28.81 IBW: 73 kg (160 lb 15 oz) Airway Assessment: Mallampati: II TM distance: >3 FB Neck ROM: full Cardiovascular Assessment: system normal Pulmonary Assessment: breath sounds clear to auscultation pulmonary exam normal Dental Assessment: (+) edentulous Misc Assessment: Last Filed Perioperative Cognitive Screening None Anesthesia Plan: ASA 3 general, with a(n) intravenous induction ID:Diallo Solomon 67 y.o. male presenting for bronchoscopy with EBUS with Dr. Shelby. PMH significant for GERD, melanoma, chronic pain, mediastinal adenopathy ADR: -- Cat Dander -- Dust & Pollen Filter Mask (Facial Mask) -- Hay Fever And Allergy Relief (Chlorpheniramine-Phenylpropan) -- Oats -- [place] Anesthesia Hx: None per chart review. Plan: dakota SLAUGHTER ppx, standard ASA monitors, adequate PIV access Torsten Justin MD 12/31/2022 [facility] Director Pager #[phone] Anesthesia atttending (Nehal): chart reviewed and patient interviewed and examined in SDA prior toprocedure. NPO>8h. For bronchoscopy to evaluate findings from MRI incidentally found upon evaluation for thoracic pain. No hx of complications with GA. Plan:GA. Region - Other Informed Consent: Anesthetic plan and risks discussed with patient. Plan discussed with HEADHUNTER. Anesthesia Screening documented in this encounter Plan of Treatment Not on file documented as of this encounter Visit Diagnoses Not on filedocumented in this encounter Administered Medications Inactive Administered Medications - up to 3 most recent administrations Medication Order MAR Action Action Date Dose Rate Site dexAMETHasone (Decadron) injection Intravenous, PRN, Starting on Wed01/01/23 at 1422, Until Wed01/01/23 at 1527, Anesthesia Intra-op, Routine Given 01/01/2023 1:42 PM EDT 8 mg lactated ringers infusion Intravenous, CONTINUOUS PRN, Starting on Wed01/01/23 at 1324, Until Wed01/01/23 at 1527, Anesthesia Intra-op New Bag 01/01/2023 1:24 PM EDT ondansetron (pf) (Zofran) (2 mg/mL) injection Intravenous, PRN, Starting on Wed01/01/23 at 1421, Until Wed01/01/23 at 1527, Anesthesia Intra-op, Routine Given 01/01/2023 2:21 PM EDT 8 mg PHENYLephrine (Maxim-Synephrine) (80 mcg/mL) in sodium chloride 0.9% 250 mL infusion Intravenous, CONTINUOUS PRN, Starting on Wed01/01/23 at 1354, Until Wed01/01/23 at 1527, Anesthesia Intra-op, Routine Rate/Dose Change 01/01/2023 2:02 PM EDT 40 mcg/min 30 mL/hr New Bag 01/01/2023 1:54 PM EDT 30 mcg/min 22.5 mL/hr PHENYLephrine in NS (PF) (MAXIM-SYNEPHRINE) 0.8 mg/10 mL (80 mcg/mL) multi-dose injection Syringe Intravenous, PRN, Starting on Wed01/01/23 at 1343, Until Wed01/01/23 at 1527, Anesthesia Intra-op, Routine Given 01/01/2023 2:42 PM EDT 80 mcg Given 01/01/2023 2:27 PM EDT 80 mcg Given 01/01/2023 1:53 PM EDT 40 mcg propofoL (Diprivan) (10 mg/mL) infusion Intravenous, CONTINUOUS PRN, Starting on Wed01/01/23 at 1329, Until Wed01/01/23 at 1527, Anesthesia Intra-op, Routine Rate/Dose Change 01/01/2023 2:31 PM EDT 50 mcg/kg/min 27.33 mL/hr Rate/Dose Change 01/01/2023 2:23 PM EDT 100 mcg/kg/min 54. 66 mL/hr Rate/Dose Change 01/01/2023 1:50 PM EDT 125 mcg/kg/min 68. 325 mL/hr propofoL (Diprivan) 10 mg/mL bolus injection (Anesthesia) Intravenous, PRN, Starting on Wed01/01/23 at 1334, Until Wed01/01/23 at 1527, Anesthesia Intra-op Given 01/01/2023 1:30 PM EDT 100 mg remifentaniL (Ultiva) (0.02 mg/mL) infusion (Anesthesia) Intravenous, CONTINUOUS PRN, Starting on Wed01/01/23 at 1329, Until Wed01/01/23 at 1527, Anesthesia Intra-op Rate/Dose Change 01/01/2023 2:32 PM EDT 0.05 mcg/kg/min 13.665 mL/hr Rate/Dose Change 01/01/2023 2:28 PM EDT 0.075 mcg/kg/min 2 0.497 mL/hr Rate/Dose Change 01/01/2023 2:12 PM EDT 0.1 mcg/kg/min 27. 33 mL/hr succinylcholine (Anectine;Quelicin) (20 mg/mL) injection Intravenous, PRN, Starting on Wed01/01/23 at 1332, Until Wed01/01/23 at 1527, Anesthesia Intra-op, Routine Given 01/01/2023 1:32 PM EDT 100 mg documented in this encounter Care Teams Technology Support Analyst Relationship Specialty Start Date End Date Britt Bravo PA [address] [place] [id number] PCP - General Family Medicine 11/18/22 documented as of this encounter
--- OUTSIDE RECORDS SUMMARY | 2024-05-09 15:36 | XMS_ITS | Encounter Summary ---
Author Organization Pending [facility] Address [facility] [place] [address] Care Team Providers Care Anti Tank Missileman Name Role Phone El Thomas MD Primary Care Provider Encounter Details Date Type Department Care Team (Late st Contact Info) Description 07/21/2019 9:00 AM EST Office Visit Dermatology at [facility] [address] [place] [address] [facility] [address] [place] [address] [place] (actinic keratosis); Multiple benign nevi; Skin tag; SK (seborrheic keratosis); Dermatofibroma; History of melanoma in situ Social History Tobacco Use Types Packs/Day Years Used Date Smoking Tobacco: Former Smokeless Tobacco: Never Sex and Gender Information Value Date Recorded Sex Assigned at Not on file Gender Identity Not on file Sexual Orientation Not on file documented as of this encounter Progress Notes * Meron Gilliam MD - 07/21/2019 9:00 AM EST DERMATOLOGY OUTPATIENT CLINIC NOTE Date of service: 07/21/2019 Diallo Solomon : 1955 Provider: Meron Gilliam MD PROBLEM: Full skin exam SKIN HISTORY: Prurigo Nodules Right lower back??07/25/2018 - At least melanoma in situ, s/p excision with 1cm margins.?? -Skin, overlying scar, ??Lentiginous compound melanocytic nevus, [facility] D[facility] Solomon is a 63 y.o. year old male. Patient is here today for a full skin exam. He reports having a few spots on the face, he said he scratched one last night on his right advent and noticed it. The incision where he had the melanoma in situ removed last August is tender, deep tissue discomfort. He says it bothers him when he moves in certain ways. 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 Family History: None?? ADR: Allergies Allergen Reactions ??? Cat Dander ? ? Dust & Pollen Filter Mask [Facial Mask] ??? Hay Fever And Allergy Relief [Chlorpheniramine-Phenylpropan] ??? Oats ??? [place] CURRENT MEDICATIONS: Current Outpatient Medications Medication Sig Dispense Refill ??? pantoprazole (PROTONIX) 40 mg Tablet, Delayed Release (E.C.) 0 No current facility-administered medications for this visit. PROBLEM LIST: There is no problem list on file for this patient. ROS General: feeling well. Oriented X 3. Skin: denies other skin complaints EXAM General: NAD, pleasant, cooperative Skin: Patient was asked to undress to the level of his comfort. Verbalized that the provider's preference is for the patient to remove all clothing and that the provider will not examine areas patient elects to keep covered. Patient's decision was to remove underwear for a total body skin exam. This includes examination of the scalp, hair, face, ears, neck, chest, abdomen, back, axillae, upper and lower extremities, hands, and feet. Buttocks and genitalia were examined with patient's consent. Significant skin findings: -Right advent x 1right cheek x 1: pink, gritty papules -Trunk and extremities: scattered, 2-6 mm medium brown macules. -Bilateral axilla: pedunculated fleshy papules. -Right zygoma extending to the right lateral canthus. 2.2 cm x 1.5 cm plaque. -Left lateral calf: 8 mm firm brown papule. -Right flank: well-healed scar. ASSESSMENT/PLAN Actinic Keratoses - Explained etiology, natural history and premalignent potential of these lesions. - Discussed treatment with cryotherapy, including the risks and benefits. - Patient elects to proceed with cryotherapy today. Procedure: Destruction of lesion(s) with cryotherapy (LN2). Location(s): As noted above. Number: 2 Discussed procedure and expectations, including risks (especially hypopigmentation) and benefits. Verbal consent obtained. Frozen with LN2, 15-30 second thaw time, twice. There were no complications;patient tolerated the procedure well. Post-procedure expectations and wound care reviewed. - Instructed patient to return to clinic for re-evaluation if lesion(s) does not resolve with this treatment. Benign-Appearing Nevi - No atypical lesions or features worrisome for malignancy. - Advised patient to watch for anything new or changing. Discussed changes (bleeding, pain, change in color or shape) that should prompt re-evaluation.?? - Will continue to monitor. Skin Tags - Discussed benign nature of lesions and provided reassurance. No treatment necessary at this time. Seborrheic Keratoses - Explained that these are hereditary and adult-acquired. Reassured patient of benign nature. No treatment necessary. - Discussed cosmetic removal with cryotherapy. Patient quoted $100 for removal of 1-10, and $200 for removal of 11-20. - Advised patient to call if they become inflamed or irritated. Dermatofibroma - Discussed benign nature of lesion and provided reassurance. No treatment necessary. History of MIS with suspicion for invasion of 0.3mm - No lymphadenopathy noted. - NER; continue to monitor. - Discussed importance of sun protection, sun avoidance strategies, protective clothing, and sunscreen. RTC - 6 months for a full skin exam; sooner if needed. Appointment scheduled before exiting. Instructed patient to call with questions or concerns. Note initiated and routed to physician for review and change by: YUNIEL Ayoub I, Daija Garcia, Clinical Scribe have performed the documentation for this encounter [...] documentation. Meron Gilliam MD Section of Dermatology [facility] documented in this encounter Plan of Treatment Not on file documented as of this encounter Visit Diagnoses Diagnosis AK (actinic keratosis) Actinic keratosis Multiple benign nevi Benign neoplasm of skin, site unspecified Skin tag Unspecified hypertrophic and atrophic condition of skin SK (seborrheic keratosis) Other seborrheic keratosis Dermatofibroma Benign neoplasm of skin, site unspecified History of melanoma in situ Personal history of malignant melanoma of skin documented in this encounter Care Teams Anti Tank Missileman Relationship Specialty Start Date End Date El Thomas MD PCP - General 07/29/10 11/18/21 documented as of this encounter
--- OUTSIDE RECORDS SUMMARY | 2024-05-09 15:36 | XMS_ITS | Encounter Summary ---
Author Organization [facility] Address [facility] [place] [address] Care Team Providers Care Massage Operator Name Role Phone El Thomas MD Primary Care Provider Encounter Details Date Type Department Care Team (Late st Contact Info) Description 11/06/2022 Ancillary Procedure [place] [address] Britt Bravo PA [address] [address] Social History Tobacco Use Types Packs/Day Years [...] Associated Diagnosis Comments FILM LIBRARY STORAGE ONLY MR SPINE Routine 11/06/2022 12:00 AM EST documented in this encounter Results * Film Library- Storage Only MR Spine (11/06/2022 12:00 AM EST) Narrative OLIVER - 11/25/2022 9:44 PM EDT This exam is auto-finalizing. It's purpose is for storage only. Britt GARCIA FILM LIBRARY ORD ERABLES [place], [place] documented in this encounter Visit Diagnoses Not on filedocumented in this encounter Care Teams Massage Operator Relationship Specialty Start Date End Date El Thomas MD [address] [place] [address] PCP - General General Internal Medicine 11/19/2111/04 documented as of this encounter
--- OUTSIDE RECORDS SUMMARY | 2024-05-09 15:36 | XMS_ITS | Encounter Summary ---
[place] [address] Care Team Providers Care Public Relations Consultant Name Role Phone El Thomas MD Primary Care Provider [phone] Encounter Details Date Type Department Care Team (Latest Contact Info) Description 11/10/2022 Travel Social History Tobacco Use Types Packs/Day [...] on filedocumented in this encounter Care Teams Public Relations Consultant Relationship Specialty Start Date End Date El Thomas MD [address] [place] [address] PCP - General General Internal Medicine 11/19/2111/04 documented as of this encounter
--- OUTSIDE RECORDS SUMMARY | 2024-05-09 15:36 | XMS_ITS | Encounter Summary ---
Author Organization [facility] Address [facility] [place] [address] Care Team Providers Care Hardscape Foreman Name Role Phone El Thomas MD Primary Care Provider [phone] Reason for Visit * Reason Comments Procedure Encounter Details Date Type Department Care Team (Latest Contact Info) Description 08/23/2018 3:00 PM EST [facility] [address] [place] [phone] Darrick Kerr MD [facility] [place] [address] Melanoma of back (Primary Dx) Social History Tobacco Use Types Packs/Day Years Used Date Smoking Tobacco: Former Smokeless Tobacco: Never Sex and Gender Information Value Date Recorded Sex Assigned at Not on file Gender Identity Not on file Sexual Orientation Not on file documented as of this encounter Patient Instructions * Patient Instructions* Ely Lackey LPN - 08/23/2018 3:00 PM EST Your staff surgeon today was Darrick Kerr MD. Your wound(s) was repaired by [id number] stitchescalled a primary repair. Instructions are as below. Please keep as a reference: Wound care - for tissue glue (if no stitches were used to close your wound) ??? There is NO wound care involved when glue is used instead of stitches. However, it is recommended to change your dressing once a day. This means taking off the current bandage after 48 hours and replacing it with a fresh one. o Wash your hands first. Remove the old dressing. Apply clean dry nonstick gauze followed by paper tape. You do not have to use a bandage if you do not want, but usually it helps keep glue in place and prevents incision from debris, dirt, etc. ??? Do not scratch, rub, pick at, or place tape directly onto the glue itself. If you use tape, usegauze first and tape on top. Do not apply any ointments, creams, lotions, or petroleum jelly on topof the glue or on your skin. ??? Generally, you want to avoid getting the area wet for 5 days, but if you would like to shower, you can begin showering 48 hours after surgery when your bandage comes off. Do not scrub the surgical site, however, if you bathe. ??? Allow the glue and steri strips to fall off naturally on their own. You can peel off any residual glue or remove steri strips yourself after 2 weeks (14 days). ??? If steri-strips were used today, these can be removed or allowed to fall off naturally at the same time as when the glue can come off. After Surgery 1. Avoid tobacco, smoking/vapors, cigars, and cannabis (marijuana) for at least 3 weeks after your surgery. These prevent proper healing and lead to worse scarring. Cutting back on tobacco is helpfulif you cannot abstain completely. 2. Do not drink alcohol for roughly 3 days as this can slow healing or cause bleeding. 3. Do not participate in athletic activities for 1 week, unless you were told a different timeline during your visit. Athletic activity is a relative term, but this is considered to be anything that could potentially raise your heartrate or blood pressure. Elevating your heart rate and blood pressure increases the risk of swelling, bleeding, wound opening, and it could lead to worse scarring. Walk ing at a leisurely pace is fine for most people, but not if you are walking for the purpose of exercise. When in doubt, take it easy or call us. 4. Do not lift anything heavier than 10 pounds until your sutures are removed. 5. Some manager banking may need to be delayed or delegated such as vacuuming, mowing the lawn, snow shoveling, or caring for young children that need to be carried/lifted. Working any major muscle groups increases your heart rate and can increasing bleeding. 6. Avoid swimming, hot tubs, and direct water pressure for 3 weeks after surgery. You may shower, however, once your initial bandage comes off in 48 hours. 7. Avoid antibiotic ointments such as triple antibiotic creams. Stick with your wound care instructions, please. 8. Whenever possible, it is helpful to take photographs with your camera or cell phone of any problems or concerns you see with your wound. We often ask for photos when you call with questions. 9. Starting 2 months following surgery, you can begin firm massage to any areas of firm scar along your incision to soften the scar and reduce bumpiness. Do this 3 times per day, 3 minutes each time.Do not start massage before 2 months. 10. Your wound will appear mostly healed at 1 week, but incisions can remain bright red for severalweeks. Then the scarring and healing process continues under the skin for 6 months until to 2 years. The scar may become less red, less firm, and more subtle during this time; please note that the rate of improvement varies depending on the person. Most redness, discoloration, bumpiness resolves by6 months, and most patients will look presentable within a few weeks after surgery. 11. Keep your follow-up appointments and make sure to continue to have your skin checked, as often as is recommended by your automobile club travel counselor, for new skin cancers. This is once per year for most patients. 12. Your scar will also be raised and lumpy until the dissolvable sutures under the skin get absorbed by your body which can take 3-4 months. The scar will flatten eventually. a. If you have a skin condition called rosacea, the redness can last long-term, or you can get an increased appearance of red vessels to the skin. The appearance of vessels slightly improves, but tends to respond well to laser treatments. 13. Occasionally, about 20% of the time on the face, the stitches under the skin can spit out of the incision to the surface. It can start out looking like a pimple or blemish directly on your incision. Sometimes you can feel something poking through the incision. it can look also minic a small area of infection, so please let us know before you go to another provider for antibiotics. This means that the suture may need to be trimmed or removed when you return for your wound check. This typically occurs a few weeks after surgery if it does occur. 14. To optimize your scar, and best cosmetic result, please avoid direct sunlight to your incision for the first 6 months following surgery. UV ray exposure to your incision may cause the redness to last longer, or to cause permanent darkening of your scar. You can avoid sun by covering your incision with a bandage when outdoors, wearing broad-rimmed hats, and wearing SPF 30 to 50 sunscreen (broad spectrum). 15. Sometimes after your sutures are removed, your incision may still be healing for 1 more week. Because of this, avoid make-up and sunscreen until approximately 2 weeks after surgery. You can beginsooner if your skin edges look completely sealed. 16. Any time you have skin surgery or any type of surgery, you can experience mild sensation loss (numbness) in the area of surgery. Massage starting at 8 weeks after surgery can help. 17. Swelling and bruising is common, and expected, especially if your surgery site was on the forehead, cheeks, temples, nose, or eyelids. . Sometimes it can be quite profound, where the eyelids swell shut, or getting black eyes. This is especially true if you are on blood thinners such as aspirin. Swelling and bruising will peak at about 48 hours after surgery. Bruising and swelling will gradually resolve. You can use ice packs or a bag of frozen peas for 15-20 minutes, 20 minutes off, up to3-4 times daily to areas of swelling on the face. Use caution not to put the icy item directly ontoyour incision, or directly in contact with your skin as this can damage skin. Avoid prolonged use more than 20 minutes. The best way to use ice packs is over the bandage, or using a light cloth/papertowel barrier between the ice pack and your skin. You can ice for as many days as needed until swelling has resolved. Eyelid and lip swelling is typically the last type of swelling to resolve. Keep in mind that if you do not want to use a bandage at all due to difficulty, allergies, irritation of skin, cost, time, or inconvenience --- you can certainly avoid bandages altogether. Things to purchase for wound care: -Nonstick gauze and paper tape or a bandage that comes with a non-adherent gauze (ie large bandaid) If you have specific questions or instructions, it can be written/typed by your nurse or doctor here: Antibiotics: If you were given antibiotic prescription, it is important to start them the evening of your surgery date. However, most patients do not need antibiotics after surgery. For pain: Most patients of different ages do not require pain medications. If you do feel soreness, throbbingor sharp pains, start by taking over the counter extra strength acetaminophen (up to 3000 mg in a 24 hour period). Generally, we like you to avoid NSAIDS (non-steroid anti-inflammatory drugs such as ibuprofen) for the first 48 hours after surgery as this can increase risk of bleeding. However, if acetaminophen is not helping with pain, you can alternate acetaminophen with iburpofen or other NSAID. Ice packs over your bandage without getting your bandage wet can also help with pain and swelling.Frozen peas work well as ice packs. THIS IS AN EXAMPLE OF A PAIN TREATMENT SCHEDULE: 1) You can take 500 mg acetaminophen one tablet by mouth at 6:00pm. This is over the counter. 2) You can take 400 mg of ibuprofen two hours later, at 8:00 pm, or other NSAID such as naproxen, as long as it does not interact with your other medications and your other doctors have not told you to avoid this. This is over the counter. Check to see how many milligrams (mg) each of your ibuprofen tablets are. Most of the time, ibuprofen comes in 200 mg tablets, so 400 mg would mean taking two of these tablets or capsules. 3) You can take 500 mg of acetaminophen at 10:00 pm. Keep track of your total acetaminophen in a 24hour period as your maximum should be 3000 mg total in a 24 hour period of this medication. 4) At midnight, you can take another 400 mg of ibuprofen. 5) you can continue on this schedule over the next 2 days, making sure to keep tabs of your total acetaminophen. If you are still in pain after trying the above, please call us. When to call your surgeon: ??? Fever of 100.4 degrees Fahrenheit or higher ??? Bleeding not controlled with direct firm pressure to your wound. Bleeding is most common in thefirst 48 hours. ??? Pain that is worsening and not relieved by over the counter medications such as acetaminophen (up to 3000 mg in a 24 hour period) ??? Wound reopening after stitching ??? Pus or bad odor from your wound ??? Worsening redness and warmth around your wound ??? If you think your surgery site is infected, please call us before seeking care or antibiotics from other providers ??? Please call us before seeking care in an emergency room or primary care. ??? If you do call, please leave your full name, phone number, date of , date of surgery, and medical record number if you have it. If after hours, please call the dinking machine operator or [phone] and ask for the automobile club travel counselor on-call. If you have any non-urgent questions or concerns, please feel free to call my office or contact me through our patient portal, [email or web address], at [email or web address] How to contact us during business hours Dermatology at [facility] Road: Mohs scheduling or Mohs follow-up appointments: [phone] ADDITIONAL INSTRUCTIONS HERE: documented in this encounter Progress Notes * Qi Goyal MD - 08/23/2018 3:00 PM EST Dermatologic Surgery Operative Report (Procedure: Excision with complex layered Closure) Patient Name: Diallo Solomon Date of : 1955 STAFF SURGEON: Darrick Kerr MD RESIDENT SURGEON: Krista Goyal MD ASSISTANTS: [x] Ely Lackey Preoperative Diagnosis: At least in situ melanoma, suspicious for invasion [id number] Postoperative Diagnosis: Same as above Pathology: Submitted for permanent pathology. Pending. Lesion Site (location): Right lower back Pre-operative size (cm): 1.8 x 0.7 cm Circumferential Margins Obtained: 1 cm Final Defect size or Total Excision Diameter (the lesion plus margins): 3.8 x 2.7 cm Final Length of closure: 9 cm Total anesthesia volume used for today: 18 cc INDICATION REMOVAL. PROCEDURE >Excision with complex layered closure. Prior to the procedure, final verification of the patient identity and correct marked surgical sitewas performed. Timeout was performed. PREOPERATIVE MEDICATION: [x] None Anesthesia used was 1% lidocaine with 1:100,000 epinephrine. The skin was prepped in a sterile fashion with with 2% chlorhexidine. The lesion was excised with clinically tumor-free margins in a fusiform fashion through the skin and through the subcutaneous tissue. The wound edges were trimmed as needed, and hemostasis was obtained with electrocoagulation. Due to wound size, the wound edges were closed in a complex layered fashion with 3-0 Vicryl plication sutures, 4-0 Vicryl deep dermals, and 5-0 Monocryl for subcuticular sutures. Postoperative length: 9 cm. Estimated blood loss: Minimal. Complications: None. Wound care: Routine. Specimen sent to Dermatopathology. Biopsy report is pending. POST-OPERATIVE MEDICATIONS: [x] NONE Qi Goyal MD Resident in Dermatology [facility] Pager [phone] Staff automobile club travel counselor: Darrick Kerr MD Section of Dermatology [facility] Level of Resident Supervision: Direct Supervision (The supervising physician is physically present with the resident and patient). * Darrick Kerr MD - 08/23/2018 3:00 PM EST Staff note: Staff attestation: I, Darrick Kerr MD, served as staff sulfuric acid plant supervisor for the case. I agree with Dr. Goyal's documentation. I was present for rivas portions of the major procedure(s) including consenting, marking out the site and margins, the excision of tissue, and the suturing/repair, and I was immediately available forthe entire surgery. I did addend the report to reflect the 3.8 cm defect size. Darrick Kerr MD Mohs Micrographic Surgery and Dermatologic Oncology Section of Dermatology, Department of Surgery documented in this encounter Plan of Treatment Not on file documented as of this encounter Procedures Procedure Name Priority Date/Time Associated Diagnosis Comments SURGICAL PATHOLOGY REPORT Routine 08/23/2018 5:02 PM EST SPECIMEN TO PATHOLOGY Routine 08/23/2018 5:02 PM EST Melanoma of back documented in this encounter Results * Surgical Pathology Report (08/23/2018 5:02 PM EST) Final Diagnosis -[id number] ? Location: [facility] The signing pathologist has (i) examined the relevant preparation(s) for the specimen(s) and (ii) rendered or confirmed the diagnosis(es). . ? Addendum ADDENDUM DISCUSSION Skin, right lower back, excision: Interpretation of a Sox-10 stain confirms the previously reported assessment. Electronically signed by: ??Yo Jerez MD Verified: ??09/04/2018 ?Dermatopathol ogist Performed at: ??-[facility] [place] [facility] [place] [place], [place] ?Surgical Pathology DIAGNOSIS Skin, right lower back, excision: - Negative for residual melanoma - ??Reparative changes consistent with previous operative site Electronically signed by: ??Yo Jerez MD Verified: ??08/29/2018 ?Dermatopathol ogist Performed at: ??[place] [place] [facility] [place] [place], [place] ADDITIONAL STUDIES The report of ??the patient's prior biopsy ([id number] ) has been reviewed. CLINICAL INFORMATION Specimen Submitted: A - Skin, right lower back, excision (1) Clinical History and Diagnosis: 1.8 x 0.7 cm healing biopsy scar, at least melanoma in situ, see previous pathology [id number]. Per prior biopsy, suspicious for invasive MM, with Breslow depth of 0.3 mm. We treated this with WLE with 1 cm margins-treated this lesion as if it was invasive MM SPECIMEN PROCESSING A - Labeled/Fixativ e: Right lower back, formalin. Quantity/Size: ??Single, 6.2 x 2.8 x 1.8 cm. Tissue Description: Ellipse of centrally umbilicated, estevez-yellow to estevez-pink skin Sections/Proces sing: Inked and entirely submitted in 17 cassettes as follows: ? A1: ??tips ? A2-A17: ??body ??ejr 09/04/2018 9:15 PM EST [facility] SPECIMEN FROM SKIN / Unknown 08/23/2018 5:02 PM EST 08/23/2018 5:02 PM EST Qi Goyal MD PATHOLOGY/CYTOLOGY O JEWEL Performing Organization Address City/[facility]/ZIP Co de Phone Number [facility] [place] [address] * Specimen to Pathology (08/23/2018 5:02 PM EST) AP Specimen 08/23/2018 5:02 PM EST 08/23/2018 6:10 PM EST Narrative [facility] - 08/23/2018 6:11 PM EST Specimen requisition ordered. ??Separate Pathology report to follow Resulting Agency Comment Spec In Lab Darrick Kerr MD PATHOLOGY/CYTOLOGY O RDERABLES [facility] [place] [address] documented in this encounter Visit Diagnoses Diagnosis Melanoma of back- Primary Malignant melanoma of skin of trunk, except scrotum documented in this encounter Care Teams Hardscape Foreman Relationship Specialty Start Date End Date El Thomas MD PCP - General 07/29/10 11/18/21 documented as of this encounter
[2024-05-09 19:54] LABS: ALT 25 U/L (16-63); AST 19 U/L (15-37); Albumin 3.8 g/dL (3.4-5.0); Alkaline Phosphatase 64 U/L (46-116); Anion Gap 7.8 mmol/L (3-11); BUN 19 mg/dL (7-18); Bilirubin, Total 0.49 mg/dL (0.2-1.0); CO2 25.2 mmol/L (21.0-32.0); CREATININE 1.2 mg/dL (0.70-1.30); Calcium 9.5 mg/dL (8.5-10.1); Chloride 106 mmol/L (98-107); Estimated GFR 66.28 (mL/min/1.73m2); Glucose 97 mg/dL (74-106); Potassium 4.3 mmol/L (3.5-5.1); Sodium 139 mmol/L (136-145); Total Protein 7.3 g/dL (6.4-8.2)
[2024-05-10 18:11] LABS: PSA, Diagnostic 0.7 ng/mL (<=4.5)
[2024-05-11 09:48] LABS: Hepatitis C Ab w Rflx HCV PCR Negative (Negative)
== END 2024-05-09 15:32 | disposition home or self-care (01) ==
LOC: NCHCN 15:31
PROVIDERS: PCP Physician Assistant; Visit Provider Physician Assistant
DX: R73.03 Prediabetes (principal)
CPT/HCPCS: 80053; 86803; 84153